=== PATIENT | female | born 1965 | race Caucasian/White ===

== ENCOUNTER 2024-01-18 11:02 | Inpatient (IN) | payer OTHER ==
[2024-01-18] VITALS (14 sets, daily range): BP systolic 113–158; BP diastolic 79–112; PULSE 99–133; RESP 11–22; TEMP 97.8–98; O2SAT 93–96
[~2024-01-18] VITALS: Ht 162.6 cm; Wt 95.4 kg
[2024-01-18] MEDS ORDERED: HEPARIN SODIUM (PORCINE) 5000 UNITS/ML 1ML VIAL IV ONE (11:15)
[2024-01-18] MEDS: InsuLIN REG 1unit/0.01ml Soln (100units/ml) IV ONE (11:15)
[2024-01-18] MEDS: SODIUM CHLORIDE 0.9% 1,000 ML IV ONE (11:15)
[2024-01-18] MEDS: ASPirin 325 MG TAB PO ONE (11:15)
[2024-01-18] MEDS: HEPARIN SODIUM (PORCINE) 5000 UNITS/ML 1ML VIAL IV ONE (11:16)
--- NOTE | 2024-01-18 11:18 | ED.PDOC ---
HPI Comments 58y F who presents to the ED via EMS for chief complaint of STEMI. Per EMS, pt has history of DM and has been having weakness and dizziness for the past 1 week and states she was getting worse and called EMS. EMS upon arrival, checked vitals, Accu check and did EKG. Pt has Accu check of 530 and states she has not taken her DM, metformin for the past few months. Pt has EKG done by EMS which showed STEMI and pt was brought to the ED. EMS states pt was given 1 nitro and 324 ASA and brought to the ED. Pt in the ED, is diaphoretic, but denies palpitations, shortness of breath, nausea, vomiting, headache or dizziness. Pt has noted history of CHF, HTN, HLD and HTN. Pt denies any other symptoms at this time. Chief Complaint: Chest Pain Time Seen by MD: 11:14 Primary Care Provider: NONE Reviewed Notes: Supervisor Malted Milk Notes Allergies: Coded Allergies: Codeine (Verified Allergy, Intermediate, 07/21/12) Information Source: Patient, Emergency Med Personnel Mode of Arrival: EMS Brought in by: EMS Past Medical History PAST MEDICAL HISTORY: Denies Surgical History: Denies all surgeries UNDER TRIMMER History: No Pertinent UNDER TRIMMER History Family History Family History: Reviewed,noncontributory to illness Social History Smoker: Quit Less Than 1 Year Alcohol: Denies ETOH Use Drugs: Denies Drug Use Lives In: Home Constitutional: denies: chills, diaphoresis, fatigue, fever, malaise, sweats, weakness, others EENTM: denies: blurred vision, double vision, ear bleeding, ear discharge, ear drainage, ear pain, ear ringing, eye pain, eye redness, hearing loss, mouth pain, mouth swelling, nasal discharge, nose bleeding, nose congestion, nose pain, photophobia, tearing, throat pain, throat swelling, voice changes, others Respiratory: reports: shortness of breath; denies: cough, hemoptysis, orthopnea, SOB at rest, SOB with excertion, stridor, wheezing, others Cardiovascular: reports: diaphoresis; denies: chest pain, dizzy spells, Dyspnea on exertion, edema, irregular heart beat, left arm pain, lightheadedness, palpitations, PND, syncope, others Gastrointestinal: denies: abdomen distended, abdominal pain, blood streaked bowels, constipated, diarrhea, dysphagia, difficulty swallowing, hematemesis, melena, nausea, poor appetite, poor fluid intake, rectal bleeding, rectal pain, vomiting, others Genitourinary: denies: abnormal vagina bleeding, burning, dyspareunia, dysuria, flank pain, frequency, hematuria, incontinence, pain, , vagina discharge, urgency, others Neurological: denies: dizziness, fainting, headache, left sided numbness, left sided weakness, numbness, paresthesia, pre-existing deficit, right sided numbness, right sided weakness, seizure, speech problems, tingling, tremors, weakness, others Musculoskeletal: denies: back pain, gout, joint pain, joint swelling, muscle pain, muscle stiffness, neck pain, others Integumetry: denies: bruises, change in color, change in hair/nails, dryness, laceration, lesions, lumps, rash, wounds, others Allergic/Immunocompromised: denies: Difficulty Healing, Frequent Infections, Hives, Itching, others Hematologic/Lymphatic: denies: anemia, blood clots, easy bleeding, easy bruising, swollen glands, others Endocrine: denies: excessive hunger, excessive sweating, excessive thirst, excessive urination, flushing, intolerance to cold, intolerance to heat, unexplained weight gain, unexplained weight loss, others Psychiatric: denies: anxiety, bipolar disorder, depression, hopeless, panic disorder, schizophrenia, sleepless, suicidal, others All Other Systems: Reviewed and Negative Physical Exam General Appearance: Moderate Distress HEENT: Normal ENT Inspection, Pharynx Normal, TMs Normal Neck: Full Range of Motion, Non-Tender, Normal, Normal Inspection Respiratory: Chest Non-Tender, Lungs Clear, No Accessory Muscle Use, No Respiratory Distress, Normal Breath Sounds Cardiovascular: No Edema, No JVD, No Murmur, No Gallop, Normal Peripheral Pulses, Regular Rate/Rhythm Breast Exam: Deferred Gastrointestinal: No Organomegaly, Non Tender, No Pulsatile Mass, Normal Bowel Sounds, Soft Genitalia: Deferred Pelvic: Deferred Rectal: Deferred Extremities: No calf tenderness, Normal capillary refill, Normal inspection, Normal range of motion, Non-tender, No pedal edema Musculoskeletal : Apperance: Normal Neurologic: Alert, price checker II-XII nml as Tested, No Motor Deficits, Normal Affect, Normal Mood, No Sensory Deficits Cerebellar Function: NOT DONE Reflexes: NOT DONE Skin: Dry, Normal Color, Warm Peripheral Pulses: 3+ Radial (R), 3+ Radial (L) Lymphatic: No Adenopathy Was a procedure done? Was a procedure done?: No CP Differential Dx Differential Diagnosis: A-fib, A-Flutter, Angina, Anxiety / Panic Attack, Atrial Dysrhythmia, AV Block 1st Degree, Electrolyte Disorder, Heart Failure, ID, Pulmonary Embolus Other Differential Diagnosis DKA, Differential Diagnosis: CHF, HTN Essential, HTN Accelerated, Medical NonCompliance X-Ray, Labs, Meds, VS Vital Signs Date Time Temp Pulse Resp B/P (MAP) Pulse Ox O2 Delivery O2 Flow Rate FiO2 01/18/24 13:20 119 16 155/107 (123) 93 01/18/24 13:05 122 16 156/106 (123) 93 01/18/24 12:50 122 16 140/104 (116) 94 01/18/24 12:35 122 11 158/104 (122) 93 01/18/24 12:20 124 12 145/112 (123) 93 01/18/24 11:10 133 93 Nasal Cannula* 2 28 01/18/24 11:10 99.2 133 24 144/106 (119) 93 99.2 01/18/24 11:04 133 01/18/24 11:02 99.2 130 20 153/93 (113) 94 99.2 01/18/24 11:02 99.2 130 20 153/93 (113) 94 Lab Test 01/18/24 11:15 Range/Units White Blood Count 10.8 4.4-10.8 10^3/uL Red Blood Count 5.53 H 4.0-5.20 10^6/uL Hemoglobin 16.5 H 12.2-16.2 g/dL Hematocrit 50.0 H 36.0-46.0 % Mean Corpuscular Volume 90.4 80.0-100.0 fL Mean Corpuscular Hemoglobin 29.8 28.0-32.0 pg Mean Corpuscular Hemoglobin Concent 33.0 32.0-36.0 g/dL Red Cell Distribution Width 15.0 H 11.8-14.3 % Platelet Count 347 140-450 10^3/uL Mean Platelet Volume 8.4 6.9-10.8 fL Neutrophils (%) (Auto) 66.1 37.0-80.0 % Lymphocytes (%) (Auto) 28.2 10.0-50.0 % Monocytes (%) (Auto) 4.6 0.0-12.0 % Eosinophils (%) (Auto) 0.2 0.0-7.0 % Basophils (%) (Auto) 0.9 0.0-2.0 % Neutrophils # (Auto) 7.2 1.6-8.6 10 ^3/uL Lymphocytes # (Auto) 3.1 0.4-5.4 10 ^3/uL Monocytes # (Auto) 0.5 0-1.3 10 ^3/uL Eosinophils # (Auto) 0 0-0.8 10 ^3/uL Basophils # (Auto) 0.1 0-0.2 10 ^3/uL Nucleated Red Blood Cells 0.0 % Hemoglobin A1c > 14.0 H <5.7 % A1C Troponin I High Sensitivity 46515 *H </=34 ng/L B-Type Natriuretic Peptide 345.96 0-100 pg/mL Current Medications Medications (Trade) Dose Ordered Sig/Sonia Route Start Time Stop Time Status Last Admin Heparin Sodium (Porcine) 4,000 units ONCE ONCE IV 01/18/24 11:45 01/18/24 12:16 DC 01/18/24 11:16 Ondansetron HCl (Zofran) 4 mg Q4HPRN PRN IV 01/18/24 12:30 01/18/24 12:35 Patient alert. Came in for weakness. Blood sugar elevated in the field. BNP elevated. Cardiac marker elevated. EKG reviewed does show STEMI. Was given heparin. Was given Zofran. Cardiology consultation. Sent to operations label clerk. Time of 1ST Reevaluation: 11:45 Reevaluation 1ST: Unchanged Patient Education/Counseling: Diagnosis, Treatment Family Education/Counseling: No Family Present Departure 1 Departure Time of Disposition: 17:57 Impression: Primary Impression: STEMI (ST elevation myocardial infarction) Qualified Codes: I21.3 - ST elevation (STEMI) myocardial infarction of unspecified site Additional Impressions: Uncontrolled diabetes mellitus Qualified Codes: E13.65 - Other specified diabetes mellitus with hyperglycemia CHF (congestive heart failure) Qualified Codes: I50.43 - Acute on chronic combined systolic (congestive) and diastolic (congestive) heart failure Disposition: 09 ADMITTED INPATIENT Admit to: Med Surg Condition: Guarded Critical Care Note Critical Care Time?: Yes (45 min-critical care time only) Stability Stability form required: No Heart Score Heart Score: Heart Score Response (Comments) Value History Highly Suspicious [address]-Deviation 2 Age 45-64 1 Risk Factors >3 or Hx ASHD 2 Troponin N/A 0 Total 7 I personally scribed for SABINA ANSARI MD ([email or web address]) on 01/18/24 at 11:18. Electronically submitted by Jenn Lowery ([email or web address]). I personally scribed for SABINA ANSARI MD ([email or web address]) on 01/18/24 at 11:21. Electronically submitted by Jenn Lowery ([email or web address]). SABINA ANSARI MD Jan 18, 2024 11:18
--- NOTE | 2024-01-18 11:23 | DVHINCON2 ---
Date Seen: Jan 18, 2024 Referring Physician MD Catalina Reason for Consultation STEMI History of Present Illness This is a 58-year-old female who presented to the emergency room via EMS with a chief complaint of dizziness since yesterday. Per patient, she developed dizziness associated with tremors progressively getting worse since yesterday which prompted her to call 911. Upon EMS arrival she underwent a 12-lead e lectrocardiogram revealing an acute inferior wall ST-elevation myocardial infarction with the patient presenting to the emergency room as a secure code STEMI. She was administered ASA 324 mg p.o. x1 and NTG 0.4 mg SL x1. Upon arrival to the emergency room, she underwent a subsequent 12-lead electrocardiogram with the secure code STEMI being confirmed. Reports very slight left-sided, non-radiating, non-provoked chest pain which is bearable. The patient's main complain is dizziness reporting hyperglycemia with blood sugar levels over 500s for the past week. States she ran out of her home medications weeks ago and has not taken her metformin. She also reports a recent diagnosis of unspecified congestive heart failure at [facility] approximately two months ago. Denies undergoing any invasive cardiac work-up, stress tests, or following up with a mac operator as an outpatient. Significant medical history includes unspecified congestive heart failure, hypertension, dyslipidemia, [id number] diabetes mellitus, cannabinoid use, a smoking history x 25 pack years, and obesity. Past Medical History Past medical history reviewed. No other significant than mentioned above. Past Surgical History C-sections x5 Unilateral oophorectomy Cholecystectomy Family History Family history reviewed. Social History See HPI. Allergies: Coded Allergies: Codeine (Verified Allergy, Intermediate, 07/21/12) Home Meds Home medications reviewed. Review of Systems Constitutional: No symptom reported Ears, Nose, & Throat: No symptom reported Eyes: No symptom reported Neurological: Dizziness, tremors Pulmonary/Respiratory: No symptom reported Cardiovascular: No symptom reported Gastrointestinal: No symptom reported Genitourinary: No symptom reported Musculoskeletal: No symptom reported Skin: No symptom reported Psychiatric: No symptom reported Endocrine: No symptom reported Hemotologic/Lymphatic: No symptom reported Vital Signs Vital Signs Date Time Temp Pulse Resp B/P (MAP) Pulse Ox O2 Delivery O2 Flow Rate FiO2 01/18/24 11:02 99.2 130 20 153/93 (113) 94 99.2 Physical Exam General Appearance: Cooperative. Well developed. Obese. In no acute distress Head Exam: Normal inspection Neck Exam: Normal inspection. Non-tender. Normal alignment Pulmonary/Respiratory: Chest non-tender. Diminished bilateral breath sounds. O2 via NC Cardiovascular/Chest: Regular rate and rhythm. S1, S2. Acute inferior wall ST- elevation myocardial infarction. No murmurs. No JVD. Peripheral Pulses: 2+ Radial (R). 2+ Radial (L). 2+ Pedal (R). 2+ Pedal (L) Abdominal Exam: Normal bowel sounds. Soft. Nontender. No hepatospenomegaly. No masses Ankle Exam: Negative ankle edema Lower extremities: Negative lower extremity edema Neuro/Mental Status: A&O x4. Coherent Thoughts/Psych: Normal thought pattern. Appropriate mood and affect. Good judgement and insight Appearance: In no acute distress Skin Exam: Normal inspection. Normal color. Warm. Dry Assessment Acute inferior wall ST-elevation myocardial infarction Rule out structural heart disease Rule out structural heart disease Xxk-qbvrmxu-ssutlukwe diabetes mellitus with hyperglycemia Hypertension Dyslipidemia Nicotine dependence Cannabinoid use Obesity Plan/Recommendation (Dr. Gonzales) Acute inferior wall ST-elevation myocardial infarction. The patient will undergo an emergent cardiac catheterization and coronary angiogram at first available. All risks and benefits of the procedure were discussed with the patient who agrees to proceed with intervention. All questions answered. In the meantime obtain a transthoracic echocardiogram to further assess extent of recently diagnosed heart failure. Lab work pending at this time. Continue tight glycemic control. Initiate nicotine patch, lipid lowering agent, and antiplatelet therapy per cardiac catheterization findings. Thank you for allowing us to participate in this patient's care. Please call if you have any questions or concerns. Critical care time: 45 min. This medical document was created using an electronic medical record system with voice recognition software and computerized dictation system. Although this document has been carefully reviewed, there might still be some phonetic and typographical errors. Oc casional wrong-word or ``sound-alike substitutions may have occurred due to the inherent limitations of voice recognition software. These areas are purely typographical due to imperfections of the software programs and do not reflect any compromise in the patient's medical care. Please read the chart carefully and recognize, using context, where these substitutions have occurred. Plan discussed with: Patient, Other Date of Service: Jan 18, 2024 Billing Provider: SUJATHA GONZALES MD Cardiology Common Codes: 70357-[id number] CARE 30-[address] [facility] Jan 18, 2024 11:23
[2024-01-18] MEDS: HEPARIN SODIUM (PORCINE) 5000 UNITS/ML 1ML VIAL ONE ×2 (11:36→12:19)
--- NOTE | 2024-01-18 11:47 | DVH ---
CLINICAL INFORMATION: 58 years old, Female; CHEST PAIN. TECHNIQUE: Single AP portable chest radiograph was obtained. COMPARISON: None FINDINGS: Lungs: Opacities in the lung bases, right greater than left, most likely atelectasis. Developing cons olidation in the right lung base not excluded. Cardiac: Heart size is within normal limits. Pulmonary vasculature: Unremarkable. Mediastinum/berkley: Unremarkable. Bones: No acute osseous abnormality identified. Other: No other significant findings. IMPRESSION: Bibasilar atelectasis with possible developing consolidation in the right lung base.
[2024-01-18] MEDS ORDERED: hydrALAZINE HCL 20 MG/ML VL IV PRN (12:00)
[2024-01-18] MEDS: NICOTINE 14 MG/24HR TOPICAL PATCH TD ONE (12:00)
[2024-01-18 12:01] LABS: Basophils # (auto) 0.1 10 ^3/uL (0-0.2); Basophils % (auto) 0.9 % (0.0-2.0); Eosinophils # (auto) 0 10 ^3/uL (0-0.8); Eosinophils % (auto) 0.2 % (0.0-7.0); Hemoglobin 16.5 g/dL (12.2-16.2); Lymphocytes # (auto) 3.1 10 ^3/uL (0.4-5.4); Lymphocytes % (auto) 28.2 % (10.0-50.0); Mean Corpuscular Hemoglobin 29.8 pg (28.0-32.0); Mean Corpuscular Volume 90.4 fL (80.0-100.0); Monocytes # (auto) 0.5 10 ^3/uL (0-1.3); Monocytes % (auto) 4.6 % (0.0-12.0); Neutrophils # (auto) 7.2 10 ^3/uL (1.6-8.6); Neutrophils % (auto) 66.1 % (37.0-80.0); Platelet Count (auto) 347 10^3/uL (140-450); Red Blood Cells 5.53 10^6/uL (4.0-5.20); White Blood Cell 10.8 10^3/uL (4.4-10.8)
[2024-01-18] MEDS: ANGIOMAX 250 MG VIAL IV ONE (12:13)
[2024-01-18] MEDS: IODIXANOL 320MG/ML 100ML BTL IV ONE (12:14)
[2024-01-18] MEDS: MIDAZOLAM HCL 2MG/2ML 2ml VIAL (1mg/ml) ONE (12:14)
[2024-01-18] MEDS: fentaNYL CITRATE 100 MCG/2 ML VL ONE (12:14)
[2024-01-18] MEDS: SODIUM CHL 0.9% 50 ML ONE (12:14)
[2024-01-18] MEDS: VERAPAMIL 2.5MG/ML INJ 2ML VIAL IV ONE (12:14)
[2024-01-18] MEDS: LIDOCAINE 2%HCL (LOCAL ANESTH.) INJ 20ML MDV ONE (12:15)
[2024-01-18] MEDS: ONDANSETRON HCL 4 MG/2 ML VIAL ONE (12:32)
[2024-01-18] MEDS: ONDANSETRON HCL 4 MG/2 ML VIAL IV PRN (12:35)
[2024-01-18] MEDS: ATROPINE SULF 1 MG/10ml SYR ONE (12:50)
--- NOTE | 2024-01-18 12:51 | DVHOP2 ---
Operative Report -Cardiology Report Details Date: 01/18/24 Preop Diagnosis: Inferior ST-elevation myocardial infarction. Postop Diagnosis: Successful primary PCI to completely occluded mid right coronary artery with a large. Then of thrombus. Patient underwent manual thrombectomy followed by successful implantation of single drug-eluting stent. She has also a critical lesion to the proximal mid LAD which was stented using a single drug-eluting stent. Patient tolerated the procedure very well. She was loaded with the Plavix 300 and received 162 mg of aspirin EN route to the hospital were 4000 heparin Surgeon: Namrata Mcarthur MD Anesthesiologist: Conscious sedation using25 mcg of fentanyl as well as a mg IV midazolam. It was given under the direct supervision of myself the primary remarketing rep with the presence of the attending nurses. No complication was obvious. Throughout the time she was monitored for total of 35 minutes Anesthesia: Local Consent: The patient was informed of the risks and benefits of the procedure. These include but are not limited to complications of anesthesia, postoperative infection, incomplete relief of symptoms, recurrence of symptoms, damage to blood vessels, nerves and tendons, deep venous thrombosis, pulmonary embolism and possible need for repeat surgery in the future. Indications for Surgery: This is a 58-year-old female who presented to the emergency room via EMS with a chief complaint of dizziness since yesterday. Per patient, she developed dizziness associated with tremors progressively getting worse since yesterday which prompted her to call 911. Upon EMS arrival she underwent a 12-lead electrocardiogram revealing an acute inferior wall ST-elevation myocardial infarction with the patient presenting to the emergency room as a secure code STEMI. She was administered ASA 324 mg p.o. x1 and NTG 0.4 mg SL x1. Upon arrival to the emergency room, she underwent a subsequent 12-lead electrocardio gram with the secure code STEMI being confirmed. Reports very slight left- sided, non-radiating, non-provoked chest pain which is bearable. The patient's main complain is dizziness reporting hyperglycemia with blood sugar levels over 500s for the past week. States she ran out of her home medications weeks ago and has not taken her metformin. She also reports a recent diagnosis of unspecified congestive heart failure at [facility] approximately two months ago. Denies undergoing any invasive cardiac work-up, stress tests, or following up with a remarketing rep as an outpatient. Significant medical history includes unspecified congestive heart failure, hypertension, dyslipidemia, dbv-nucwljj-[id number] diabetes mellitus, cannabinoid use, a smoking history x 25 pack years, and obesity. Name of Procedure Performed 1. Left heart catheterization with left ventricular end-diastolic pressure measurement. 2. Selective right and left coronary angiography utilizing right transradial approach. 3. Conscious sedation using25 mcg of fentanyl as well as a mg IV midazolam. 4. Successful primary PCI of the right coronary artery using single drug-eluting stent. 5. Manual thrombectomy using penWaterfall CAT five Dutch catheter. With the minimal clot retrieved. 6. Staged PCI of the same set up of prox to mid LAD tight stenosis and 90% using single drug-eluting stent. Procedure Details Procedure Details: Procedure note: After informed consent was obtained, risks, benefits, complications, and alternatives were discussed in details with the patient who agrees to have the procedure done. At the beginning of the procedure, the right wrist in the right groin area were prepped and draped in the regular sterile fashion. A total of 2 cc of 1% xylocaine was given to the right wrist area before a six Dutch sheath was placed using modified Seldinger technique. Patient received a total of 2.5 mg of verapamil as well as 100 mcg of nitroglycerin intra-arterial to prevent vasospasm. She received conscious sedation was25 mcg of fentanyl as well as a mg IV midazolam. [place] five Dutch catheter was used to engage the right and left coronary system, it was also used to measure left ventricular end-diastolic pressure. And then it was exchanged for a Frankie right to the right coronary artery as well as an XB 3-0 guiding catheter of the left system. Findings were as follows: 1. Left heart catheterization with left ventricular end-diastolic pressure measurement: With the help of a tiger five Dutch catheter as well as a J-tip wire we were able to cross the aortic valve and measured left ventricular end-diastolic pressure which was normal at 6 mm of mercury. There was no gradient across the aortic valve on the pullback. 2. Selective right and left coronary angiography utilizing right transradial approach: 1. The right coronary artery comes off the right coronary cusp it is a large dominant system it is occluded at the mid segment with a large clot burden. Evident by multiple filling defects. This is the culprit vessels of the patient's presentation. 2. The left main comes off the left coronary cusp it bifurcates into a large left anterior descending artery as well as a medium-sized left circumflex vessel. The left main is free of any significant atherosclerotic plaquing. 3. The left anterior descending artery it is a large, has transapical course, it bifurcates into three diagonal branch before the 2nd diagonal branch there is a tight focal 90% stenosis expanding through the ostium of the 2nd diagonal branch. There is mild distal disease at 80%. The LAD tapers to a small caliber vessels at its end. 4. Left circumflex artery, is a medium-sized vessel it gives rise to multiple obtuse marginal branches it has [id number] irregularity at 50-60% does not require intervention at this stage. 3. Manual thrombectomy, followed by successful angioplasty to a large very dominant mid right coronary artery occlusion using single drug-eluting stent: The tiger five Dutch catheter was exchanged for a Frankie right four guiding catheter. The lesion was traversed using C-arm blue wire, after the lesion was crossed it was interrogated using a CT five Dutch manual thrombectomy device with a multiple sweeps, with the ability to retrieve small white clot and samaritan of the flow to NITIN two from NITIN 0, this followed by predilatation using two5 x 15 balloon and then stenting using four 0 by 30 drug-eluting stent this was post dilated using 4.[address] up to 20 atmospheric pressure with excellent final result. There is a distal embolization of the posterior descending artery which was left for medical therapy and continuous Angiomax infusion. 4. Staged PCI to proximal to mid LAD tight stenosis at the same set up: The Frankie right guiding catheter was exchanged for an XB 3-0 guiding catheter, the same C-arm blue wire was used to engage the left system traversing the lesion of the LAD, the lesion was then pre-dilated using two5 x 15 sprinter Legend balloon and then was stented using a 3.5 by15 drug-eluting stent with excellent final result the lesion was then post dilated using three five NC balloon all the way to 18 atmospheric pressure at two different spots. Excellent final result obtained. 5. Antiplatelet anticoagulation during the procedure: Patient received loading dose of 300 of Plavix p.o. of and it was well as 162 mg of aspirin, IV bivalirudin was given throughout the procedure to achieve adequate anticoagulation without complication. Impression and plan: 1. Acute inferior ST-elevation myocardial infarction secondary to complete occlusion of mid right coronary artery dominant vessel, that was treated with a manual thrombectomy and successful implantation of single drug-eluting stent. 2. Staged PCI to a tight prox LAD stenosis before the 2nd diagonal branch using single drug-eluting stent with excellent final result. 3. Aggressive secondary prevention protocol is warranted with a high-dose statin to achieve LDL target less than 50 mg/dL addition to controlling other risk factors including diabetes mellitus and hypertension. 4. Patient would need echocardiography to assess left ventricular ejection fraction and proceed with goal-directed therapy as needed. Condition Good [facility] Clinical Frailty Scale [facility] Clinical Frailty Scale: Managing Well Stress Test Stress Test Performed: No Dominance Dominance: Right NITIN NITIN Flow: Post- Intervention (NITIN-3), Pre-Intervention (NITIN-2) Lesion Lesion Complexity: High/C Residual Stenosis post procedu: 0% Disposition NAMRATA MCARTHUR MD Jan 18, 2024 12:51
[2024-01-18] MEDS: EPTIFIBATIDE INJ (2MG/ML) 10ML VIAL IV ONE (13:21)
[2024-01-18] MEDS: CLOPIDOGREL BISULFATE 75 MG TAB ONE (13:21)
[2024-01-18] MEDS: HYDROcodone-ACET 5/325MG TAB PO PRN (14:04)
--- NOTE | 2024-01-18 14:10 | DVHHP2 ---
History of Present Illness Reason for Visit: STEMI History of Present Illness 58-year-old female presented to the ED via EMS with chief complaint of dizziness since yesterday. Per patient she developed dizziness associated with tremors that was progressively getting worse since yesterday which prompted her to call 911. Upon EMS arrival she underwent 12 lead EKG revealing acute inferior wall ST-elevation myocardial infarction with a patient presenting to the ED as a secure code STEMI. Patient was given aspirin 324 mg p.o. x1 in NTG 0.4 mg sublingual x1. Subsequent 12 lead EKG done in the ER once patient arrived confirm STEMI. Patient at the time was having left-sided nonradiating non provoked chest pain which was bearable. And patient's main complaint was dizziness, patient also explains hyperglycemia with blood sugar levels over 500s for the past week. Per patient she ran out of her home medications weeks ago and has not taken her metformin. Patient reports diagnosis of CHF at [facility] ago. Patient did not undergo any invasive cardiac workup, stress test for follow up with Cardiology as outpatient. Patient denies headache, diaphoresis, shortness of breath, abdominal pain, no nausea, vomiting, fever, or chills endorsed by the patient. Patient was admitted for further evaluation medical management. Past Medical History CHF, hypertension, dyslipidemia, noninsulin dependent diabetes mellitus, cannabinoid use, smoker history 25 pack years, obesity Past Surgical History x5 unilateral oophorectomy, cholecystectomy Family History Reviewed noncontributory to the management of this case Smoke: # pack years (25) ALCOHOL: none Drugs: None Lives: with Family Review of Systems Constitutional: No: Fever, Chills, Sweats, Weakness, Malaise, Other Eyes: No: Pain, Vision change, Conjunctivae inflammation, Eyelid inflammation, Other, Redness ENT: No: Ear pain, Ear discharge, Nose pain, Nose discharge, Nose congestion, Mouth pain, Mouth swelling, Throat pain, Throat swelling, Other Respiratory: No: Cough, Dry, Shortness of breath, SOB with excertion, Wheezing, Hemoptysis, Pleuritic Pain, Sputum, Wheezing, Other Cardiovascular: Chest Pain, Lt Headedness; No: Palpitations, Orthopnea, Paroxysmal Noc. Dyspnea, Edema, Other Gastrointestinal: No: Nausea, Vomiting, Abdominal Pain, Diarrhea, Constipation, Melena, Hematochezia, Other Genitourinary: No Dysuria, No Frequency, No Incontinence, No Hematuria, No Retention, No Other Musculoskeletal: No: other, neck pain, shoulder pain, arm pain, back pain, hand pain, leg pain, foot pain Skin: No: Rash, Lesions, Jaundice, Bruising, Other Neurological: No: Weakness, Numbness, Incoordination, Change in speech, Confusion, Seizures, Other Allergies: Coded Allergies: Codeine (Verified Allergy, Intermediate, 07/21/12) Medications Current Medications Medications Dose Ordered Sig/Sonia Route Start Time Stop Time Status Last Admin Dose Admin Nicotine 1 patch DAILY TD 01/19/24 10:00 Atorvastatin Calcium 40 mg HS PO 01/18/24 22:00 Aspirin 81 mg DAILY PO 01/19/24 10:00 Metoprolol Succinate 25 mg DAILY PO 01/19/24 10:00 Hydralazine HCl 10 mg Q6HP PRN IV 01/18/24 12:00 Ondansetron HCl 4 mg Q4HPRN PRN IV 01/18/24 12:30 Clopidogrel Bisulfate 75 mg DAILY PO 01/19/24 10:00 Nitroglycerin 0.4 mg Q5MINP PRN SL 01/18/24 13:30 Morphine Sulfate 2 mg Q30M PRN IV 01/18/24 13:30 Acetaminophen/ Hydrocodone Bitart 1 tab Q4HPRN PRN PO 01/18/24 13:45 Morphine Sulfate 2 mg Q4HPRN PRN IV 01/18/24 13:45 Temazepam 15 mg HSPRN PRN PO 01/18/24 13:45 Exam Vital Signs Vital Signs Date Time Temp Pulse Resp B/P (MAP) Pulse Ox O2 Delivery O2 Flow Rate FiO2 01/18/24 11:10 133 93 Nasal Cannula* 2 28 01/18/24 11:10 99.2 24 144/106 (119) 99.2 General Appearance: Alert, Oriented X3, Cooperative, mild distress HEENT: Atraumatic, PERRLA, EOMI, Mucous membr. moist/pink Respiratory: Clear to auscultation, Normal air movement Cardiovascular: Regular rate, Normal S1, Normal S2, No murmurs Abdominal: Normal bowel sounds, Soft, No tenderness, No hepatospenomegaly Extremities: No clubbing, No cyanosis, No edema, Normal pulses, No tenderness/swelling Skin: No rashes, No breakdown, No significant lesion Neuro: Normal gait, Normal speech, Strength at 5/5 X4 ext, Normal tone, Sensation intact, Cranial nerves 3-12 NL, Reflexes 2+ Psych/Mental Status: Mental status NL, Mood NL Labs/Xrays Labs, imaging and diagnostic tests reviewed Labs Test 01/18/24 11:15 Range/Units White Blood Count 10.8 4.4-10.8 10^3/uL Red Blood Count 5.53 H 4.0-5.20 10^6/uL Hemoglobin 16.5 H 12.2-16.2 g/dL Hematocrit 50.0 H 36.0-46.0 % Mean Corpuscular Volume 90.4 80.0-100.0 fL Mean Corpuscular Hemoglobin 29.8 28.0-32.0 pg Mean Corpuscular Hemoglobin Concent 33.0 32.0-36.0 g/dL Red Cell Distribution Width 15.0 H 11.8-14.3 % Platelet Count 347 140-450 10^3/uL Mean Platelet Volume 8.4 6.9-10.8 fL Neutrophils (%) (Auto) 66.1 37.0-80.0 % Lymphocytes (%) (Auto) 28.2 10.0-50.0 % Monocytes (%) (Auto) 4.6 0.0-12.0 % Eosinophils (%) (Auto) 0.2 0.0-7.0 % Basophils (%) (Auto) 0.9 0.0-2.0 % Neutrophils # (Auto) 7.2 1.6-8.6 10 ^3/uL Lymphocytes # (Auto) 3.1 0.4-5.4 10 ^3/uL Monocytes # (Auto) 0.5 0-1.3 10 ^3/uL Eosinophils # (Auto) 0 0-0.8 10 ^3/uL Basophils # (Auto) 0.1 0-0.2 10 ^3/uL Nucleated Red Blood Cells 0.0 % Hemoglobin A1c > 14.0 H <5.7 % A1C Troponin I High Sensitivity 54973 *H </=34 ng/L B-Type Natriuretic Peptide 345.96 0-100 pg/mL Assessment/Plan Assessment/Plan STEMI Admit to telemetry Cardiology consulted, follow up orders ACS protocol Status post thrombectomy and stenting Started on Plavix Chronic hyperlipidemia Patient is started on statin per Cardiology orders Lipid panel pending Chronic hypertension Monitor blood pressure Started on medications by Cardiology Hydralazine p.r.n. CHF Recent diagnosis Patient unsure of home medications Gmq-bvblqjp-zcgfejqfo diabetes mellitus Accu-Cheks a.c. HS Moderate insulin sliding scale Substance abuse, marijuana Discussed abstinence Insomnia Started on temazepam Nicotine dependence Started on nicotine patch FEN/PPX GI and VTE prophylaxis not indicated Consistent carb diet and If home medications are obtained and needed to be added nursing to contact hospitalist and enter in computer. Plan discussed with: Patient My Orders Orders - TAISHA ROBERT Procedure Category Date Status Time Admit ADMIT 01/18/24 Transmitted 13:26 Code Status CODE 01/18/24 Transmitted 13:26 Vital Signs [facility] 01/18/24 In Process 13:26 Review Orders With [facility] 01/18/24 In Process Adm. 13:26 Bedrest With Bathroom [place] 01/18/24 In Process Privileg 13:26 Consistent DIET 01/18/24 Transmitted Carb(Ccho)Diabetes Lunch Notify Md Of Changes [facility] 01/18/24 In Process From Base 13:26 Advance Directive [place] 01/18/24 In Process 13:26 Basic Metabolic Panel LAB 01/19/24 Verified 04:00 Complete Blood Count LAB 01/19/24 Verified 04:00 Patient Condition ORDERS 01/18/24 Transmitted 13:26 Allergies [place] 01/18/24 In Process 13:26 Nitroglycerin [facility] 01/18/24 In Process Sublingual (Ntrostat 13:30 Morphine Sulfate [facility] 01/18/24 In Process Injection 13:30 Stat Ekg For Chest [place] 01/18/24 In Process Pain 13:26 Notify Md Of Changes [facility] 01/18/24 In Process From Base 13:26 Hydrocodone-Acet [facility] 01/18/24 In Process 5/325mg Tab ([place] 13:45 Morphine Sulfate [facility] 01/18/24 In Process Injection 13:45 Temazepam (Restoril) [facility] 01/18/24 In Process 13:45 Date of Service: Jan 18, 2024 Billing Provider: TAISHA ROBERT Common Visit Codes: [id number] INP/OBS CARE (HIGH) TAISHA ROBERT Jan 18, 2024 14:10
[2024-01-18] MEDS ORDERED: DEXTROSE (50%) 50ML SYRG IV PRN ×2 (16:30→23:00)
[2024-01-18] MEDS: ACCU-CHEK COMFORT CURVE STRIP VI SCH (17:02)
[2024-01-18] MEDS: InsuLIN REG 1unit/0.01ml Soln (100units/ml) SC SCH ×2 (17:03→21:51)
[2024-01-18 17:43] LABS: Chloride 97 mmol/L (98-107); Potassium 5.3 mmol/L (3.5-5.1); Sodium 132 mmol/L (136-145)
[2024-01-18 17:46] LABS: Anion Gap 4 (5-15); Calcium 9.7 mg/dL (8.7-10.4); Carbon Dioxide 31 mmol/L (20-31)
[2024-01-18 17:51] LABS: BUN/Creatinine Ratio 21.3 (10.0-20.0); Blood Urea Nitrogen 26 mg/dL (9-23)
[2024-01-18 17:52] LABS: Magnesium 1.8 mg/dL (1.6-2.6)
[2024-01-18 18:00] LABS: Glucose 514 mg/dL (74-106)
[2024-01-18] MEDS: MORPHINE SULFATE INJ 2 MG/ml SYRG IV PRN (18:36)
[2024-01-18] MEDS ORDERED: InsuLIN REG 1unit/0.01ml Soln (100units/ml) IV ONE (19:00)
[2024-01-18] MEDS: InsuLIN REG 1unit/0.01ml Soln (100units/ml) SC ONE (19:38)
[2024-01-18] MEDS: INSULIN LANTUS (GLARGINE) 1 /0.01ml (100units/ml) SC ONE (20:49)
[2024-01-18] MEDS: ATORVASTATIN 20 MG TAB PO SCH (21:48)
[2024-01-19] VITALS (8 sets, daily range): BP systolic 112–144; BP diastolic 80–91; PULSE 107–129; RESP 19–20; TEMP 98.2–100.8; O2SAT 93–96
[2024-01-19] MEDS: ACCU-CHEK COMFORT CURVE STRIP VI SCH (00:21)
[2024-01-19] MEDS: InsuLIN REG 1unit/0.01ml Soln (100units/ml) SC SCH (00:22)
[2024-01-19 06:33] LABS: Anion Gap 6 (5-15); Calcium 9.4 mg/dL (8.7-10.4); Carbon Dioxide 26 mmol/L (20-31); Chloride 101 mmol/L (98-107); Potassium 3.8 mmol/L (3.5-5.1); Sodium 133 mmol/L (136-145)
[2024-01-19 06:39] LABS: BUN/Creatinine Ratio 26.7 (10.0-20.0); Blood Urea Nitrogen 20 mg/dL (9-23); Glucose 163 mg/dL (74-106)
[2024-01-19 07:04] LABS: Basophils # (auto) 0.1 10 ^3/uL (0-0.2); Basophils % (auto) 1.1 % (0.0-2.0); Eosinophils # (auto) 0 10 ^3/uL (0-0.8); Eosinophils % (auto) 0.4 % (0.0-7.0); Hematocrit 47.9 % (36.0-46.0); Lymphocytes % (auto) 25.8 % (10.0-50.0); Mean Corpuscular Hemoglobin 28.9 pg (28.0-32.0); Mean Corpuscular Hgb Conc. 33.3 g/dL (32.0-36.0); Mean Corpuscular Volume 86.8 fL (80.0-100.0); Monocytes # (auto) 0.7 10 ^3/uL (0-1.3); Neutrophils # (auto) 7.8 10 ^3/uL (1.6-8.6); Neutrophils % (auto) 66.7 % (37.0-80.0); Nucleated Red Blood Cells % 0.3 %; Platelet Count (auto) 341 10^3/uL (140-450); Red Blood Cells 5.52 10^6/uL (4.0-5.20); Red Cell Distribution Width 14.9 % (11.8-14.3); White Blood Cell 11.6 10^3/uL (4.4-10.8)
--- NOTE | 2024-01-19 09:38 | ECG ---
[facility] Test Date: 2024-01-18 Test Time: 11:04:24 Pat Name: MOON COON Department: ED Room: 0251T Gender: F Manager Strategy: DAYSI : 1965 Requested By: SABINA ANSARI Order Number: [id number] Reading MD: Measurements Intervals [place] Rate: 133 P: 0 ND: 134 QRS: 170 QRSD: 133 T: 38 QT: 400 QTc: 596 Interpretive Statements Sinus tachycardia Probable left atrial enlargement RBBB and LPFB Inferior infarct, acute (LCx) Probable posterior infarct, acute Lateral leads are also involved Please click the below link to view image of tracing.
--- NOTE | 2024-01-19 09:44 | DVHPNRES ---
Progress Note Date Seen: Jan 19, 2024 Resident Creating Document: ALEJANDRO ENGEL RESIDENT Medical Necessity Reason Pt with a Central, PICC or Fol: No Subjective Review of Systems Lupe Gaytan is a 58-year-old female patient who presents to ED via EMS with chief complaint of dizziness and generalized tremors which started one day before her admission, associated with stabbing chest pain which radiates towards her left shoulder in variable functional class intensity 4/10. Patient reports to presents to the ED a previous stay and left AMA before completing workup. EMS completed 12 lead EKG which revealed inferior ST elevation with Q-waves present, activating subacute code STEMI, administering load of aspirin, sublingual nitroglycerin and heparin load. Interpreted as evolved STEMI persistently symptomatic by dizziness, completed coronary angiography with stent placement to occluded mid RCA and proximal LAD due to severe stenosis. Denies dyspnea, palpitation, syncope, nausea, vomiting, diarrhea, bleeding, fever, chills, dysuria and motor sensory deficits. Past medical history: Hypertension, dyslipidemia, txn-ruerbqg-ieciujmde diabetes, obesity, unspecified congestive heart failure. Surgical history: C-sections x5, unilateral oophorectomy, cholecystectomy Family history: Noncontributory Social history: Current tobacco smoker (25 pack-year history of smoking), cannabinoid use. Denies current alcohol and other drug abuse. Allergies: Codeine Home medication: Does not recall Patient seen and examined at bedside. Currently complains of same dizziness and mild (intensity 2/4) intermittent stabbing pain increases with movement and respiration, is different from pain from when she was admitted. Objective vital signs Vital Sign Date Time Temp Pulse Resp B/P (MAP) Pulse Ox O2 Delivery O2 Flow Rate FiO2 01/19/24 05:00 98.2 115 20 112/84 (93) 93 98.2 01/18/24 20:00 Room Air* 0 21 Total Intake and Output 01/18/24 01/18/24 01/19/24 15:00 23:00 07:00 Intake Total 600 ml Balance 600 ml medications Current Medications Medications Dose Ordered Sig/Sonia Route Start Time Stop Time Status Last Admin Dose Admin Nicotine 1 patch DAILY TD 01/19/24 10:00 Atorvastatin Calcium 40 mg HS PO 01/18/24 22:00 01/18/24 21:48 40 MG Aspirin 81 mg DAILY PO 01/19/24 10:00 Metoprolol Succinate 25 mg DAILY PO 01/19/24 10:00 Hydralazine HCl 10 mg Q6HP PRN IV 01/18/24 12:00 Ondansetron HCl 4 mg Q4HPRN PRN IV 01/18/24 12:30 01/18/24 12:35 4 MG Clopidogrel Bisulfate 75 mg DAILY PO 01/19/24 10:00 Nitroglycerin 0.4 mg Q5MINP PRN SL 01/18/24 13:30 Morphine Sulfate 2 mg Q30M PRN IV 01/18/24 13:30 01/19/24 03:00 2 MG Acetaminophen/ Hydrocodone Bitart 1 tab Q4HPRN PRN PO 01/18/24 13:45 01/18/24 14:04 1 TAB Morphine Sulfate 2 mg Q4HPRN PRN IV 01/18/24 13:45 Temazepam 15 mg HSPRN PRN PO 01/18/24 13:45 Diagnostic Test (Pha) 1 strip IQ4HR 01/19/24 00:00 01/19/24 03:59 1 STRIP Insulin Human Regular IQ4HR SC 01/19/24 00:00 01/19/24 04:02 3 UNITS Dextrose 50 ml UD PRN IV 01/18/24 23:00 Examination Patient lying in bed, in no acute distress General: Lucid, afebrile, mucosae are moist Cardiovascular: Normal S1 and S2. No murmurs, gallops or rubs Respiratory: Normal ventilation mechanics. Clear lung sounds on auscultation Abdomen: Soft, nontender, no organomegaly, normal bowel sounds MSK/skin: Mobilizes 4 limbs. Skin is dry and warm puncture site on right radial area with no murmurs nor hematoma. Neurological: Oriented in 3 spheres. No motor no sensitive deficits. Pupils are isocoric and reactive laboratory and microbiology Laboratory Tests 01/19/24 05:54 Test 01/19/24 05:54 Range/Units Serum Glucose 163 H 74-106 mg/dL Problem List/Assessment/Plan Problem List/Assessment/Plan Assessment Evolved inferior wall ST-elevation myocardial infarction (>12 hours) Newly diagnosed ischemic cardiomyopathy Acute systolic congestive heart failure (HFrEF, LVEF 35-40%) Dbj-bauvpmk-jradyictl diabetes mellitus with hyperglycemia Hypertension Dyslipidemia Nicotine dependence Cannabinoid use Obesity Plan/Recommendation Completed coronary angiography: Left ventricular end-diastolic pressure 6 mmHg. Dominant RCA with occlusion of the mid segment, 90% stenosis in proximal LAD, 80% stenosis in distal LAD, obtuse marginal with 50-60% stenosis. Completed manual thrombectomy of RCA, placement of stent in mid RCA, placement of stent in proximal LAD. Echocardiogram: LVEF 35-40%, global hypokinesia, grade 1 diastolic dysfunction Currently on DAPT, statin and GDM T (beta-elsa, ARNi, MRA and SGLT-2 inhibitors) Aggressive secondary prevention protocol as warranted. Discussed the case with Dr. Mcarthur, patient and nurses: Currently status post stent placement to mid RCA and proximal LAD. Continue with DAPT, statin and GDMT. Patient continues with mild stabbing chest pain, it was suspected due to evolved STEMI (early pericarditis post ID). We will continue monitoring patient to see tolerance of GDM T and symptomatic improvement. Patient has poor prognosis Plan discussed with: Patient, Other (Nurses) Visit Coding Cardiology RES Date of Service: Jan 19, 2024 Billing Provider: SUJATHA MCARTHUR MD Cardiology Common Codes: 04035-MAV/OBS SAME DATE (High), 51391-KANZNNGY CARE- EACH +30MIN ALEJANDRO ENGEL RESIDENT Jan 19, 2024 09:44
[2024-01-19] MEDS: NICOTINE 14 MG/24HR TOPICAL PATCH TD SCH (09:46)
[2024-01-19] MEDS: CLOPIDOGREL BISULFATE 75 MG TAB PO SCH (09:47)
--- NOTE | 2024-01-19 09:47 | DVHPN2 ---
Subjective Still complaining of chest pain Reviewed: Care Plan, H&P, Labs, Medications, Previous Orders, Radiology, Other (Consultation) Changes from previous H/P or p: No Changes Objective Vitals Vital Signs Date Time Temp Pulse Resp B/P (MAP) Pulse Ox O2 Delivery O2 Flow Rate FiO2 01/19/24 05:00 98.2 115 20 112/84 (93) 93 98.2 01/18/24 20:00 Room Air* 0 21 Intake/Output Intake and Output 01/19/24 07:00 Intake Total 600 ml Balance 600 ml Intake Oral 600 ml # Voids 12 General Appearance: Alert, Oriented X3, Cooperative, moderate distress HEENT: Atraumatic Lungs: Clear to auscultation, Normal air movement Cardiovascular: Regular rate, Normal S1, Normal S2, No murmurs Abdomen: Normal bowel sounds, Soft, No tenderness Extremities: Other (Heart catheterization site with no bleeding/swelling/discharge) Medications Current Medications Medications Dose Ordered Sig/Sonia Route Start Time Stop Time Status Last Admin Dose Admin Nicotine 1 patch DAILY TD 01/19/24 10:00 Atorvastatin Calcium 40 mg HS PO 01/18/24 22:00 01/18/24 21:48 40 MG Aspirin 81 mg DAILY PO 01/19/24 10:00 Metoprolol Succinate 25 mg DAILY PO 01/19/24 10:00 Hydralazine HCl 10 mg Q6HP PRN IV 01/18/24 12:00 Ondansetron HCl 4 mg Q4HPRN PRN IV 01/18/24 12:30 01/18/24 12:35 4 MG Clopidogrel Bisulfate 75 mg DAILY PO 01/19/24 10:00 Nitroglycerin 0.4 mg Q5MINP PRN SL 01/18/24 13:30 Morphine Sulfate 2 mg Q30M PRN IV 01/18/24 13:30 01/19/24 03:00 2 MG Acetaminophen/ Hydrocodone Bitart 1 tab Q4HPRN PRN PO 01/18/24 13:45 01/18/24 14:04 1 TAB Morphine Sulfate 2 mg Q4HPRN PRN IV 01/18/24 13:45 Temazepam 15 mg HSPRN PRN PO 01/18/24 13:45 Diagnostic Test (Pha) 1 strip IQ4HR 01/19/24 00:00 01/19/24 03:59 1 STRIP Insulin Human Regular IQ4HR SC 01/19/24 00:00 01/19/24 04:02 3 UNITS Dextrose 50 ml UD PRN IV 01/18/24 23:00 Laboratory Results Laboratory Tests 01/19/24 05:54 Chemistry Test 01/18/24 17:22 01/19/24 05:54 Calcium Level 9.7 mg/dL (8.7-10.4) 9.4 mg/dL (8.7-10.4) Magnesium Level 1.8 mg/dL (1.6-2.6) Lipid panel Test 01/18/24 17:22 Cholesterol Level 140 mg/dL (< 200) HDL Cholesterol 49 mg/dL (40-59) Triglycerides Level 182 mg/dL (< 150) H Cardiac Markers Test 01/18/24 11:15 B-Type Natriuretic Peptide 345.96 pg/mL (0-100) HgA1c, TSH Test 01/18/24 11:15 01/18/24 14:54 Hemoglobin A1c > 14.0 % A1C (<5.7) H Thyroid Stimulating Hormone (TSH) 2.29 uIU/mL (0.55-4.78) Labs and/or images reviewed: Labs reviewed by me, Image(s) reviewed by me Assessment/Plan Assessment/Plan A 58-year-old female patient with multiple comorbidities; who presented to the emergency department with chest pain and dizziness. #Chest pain and dizziness due to STEMI; still with chest pain #STEMI status post heart catheterization on January 18, 2024 with placement of two CARROL; one in RCA and one in the proximal to mid LAD #Leukocytosis; most likely reactive due to above #KAREN; most likely vasomotor nephropathy; due to above #Ischemic cardiomyopathy with diastolic and systolic heart #Hypertensive heart disease with heart failure Continue aspirin, clopidogrel, and statin Telemetry Discussed the case with Cardiology regarding continuous chest pain Reviewed echocardiogram and heart catheterization reports Continue GDMT, and antihypertensive medications; and adjust as indicated Avoid nephrotoxic agents Strict input and output monitoring Continue close monitoring #Uncontrolled diabetes mellitus type 2; hemoglobin A1c more than 14% #Severe metabolic syndrome with mixed dyslipidemia and morbid obesity #Mixed dyslipidemia #Morbid obesity Started the patient on long-acting insulin Continue insulin sliding scale with hypoglycemia protocol Continue monitoring glucose and adjust insulin dose accordingly Continue statin; reviewed lipid profile Counseled the patient on the importance of adopting healthy lifestyle with diet and exercise in order to lose weight Continue monitoring #Marijuana and tobacco use disorder Continue nicotine patch Counseled on tobacco use cessation for 18 minutes Counseled on marijuana use cessation for 12 minutes Continue monitoring Goals of care discussed for 20 minutes; full code 99 minutes of critical care time Late Entry This medical document was created using an electronic medical record system with computerized dictation system. Although this document has been carefully reviewed, there might still be some phonetic and typographical errors. These areas are purely typographical due to imperfections of the software programs, and do not reflect any compromise in the patient's medical care. Plan discussed with: Patient, Other (Nurse) My Orders Orders - MICHAELLE ARANGO MD Procedure Category Date Status Time Complete Blood Count LAB 01/20/24 Verified 04:00 Magnesium LAB 01/20/24 Verified 04:00 Date of Service: Jan 19, 2024 Billing Provider: MICHAELLE ARANGO MD Common Visit Codes: 27139-[id number] CARE 30-74 MIN (99 minutes), 99965-[id number] CARE-EACH +30MIN Secondary Visit Codes: 42533-YHDVY CHNG SMOKING >10MIN (Counseled on tobacco use cessation for 18 minutes and on marijuana use cessation for 12 minutes), [id number]-[id number] CARE PLAN 30 MINUTES (20 minutes) MICHAELLE ARANGO MD Jan 19, 2024 09:47
[2024-01-19] MEDS: ASPirin 81 mg TAB PO SCH (09:48)
[2024-01-19] MEDS: METOPROLOL SUCCINATE XL 50 MG TAB PO SCH (09:51)
--- NOTE | 2024-01-19 10:05 | ECG ---
[facility] Test Date: 2024-01-18 Test Time: 12:54:50 Pat Name: MOON COON Department: Room: 0251T A Gender: F Tacker Off: ELIZABETH : 1965 Requested By: LAURA TORRES Order Number: [id number] Reading MD: Namrata Mcarthur Measurements Intervals [place] Rate: 122 P: 63 VA: 168 QRS: 141 QRSD: 140 T: 3 QT: 318 QTc: 453 Interpretive Statements Sinus tachycardia Possible Left atrial enlargement Right bundle branch block Left posterior fascicular block Bifascicular block Inferior infarct , age undetermined Electronically Signed On 01-19-2024 15:52:49 PST by Namrata Mcarthur Please click the below link to view image of tracing.
[2024-01-19] MEDS: MORPHINE SULFATE INJ 2 MG/ml SYRG IV PRN (10:40)
--- NOTE | 2024-01-19 12:51 | DVHSR ---
APPROVED REPORT EXAM: Two-dimensional and M-mode echocardiogram with Doppler and color Doppler. Blood Pressure: 112/84 mmHg INDICATION STEMI RISK FACTORS Height: 64, Weight: 213 DIMENSIONS LVDd (3.8-5.7cm)LA (2D)4.6 (1.9-4.0cm)Aortic Root3.7 (2.0-3.7cm) LVDs (2.5-4.0cm)LA (MM) (1.9-4.0cm)Aortic Cusp Exc1.8 (1.5-2.0cm) EF (%) 40.0 (55-70%)Rt. Atrium3.6 (1.9-4.0cm)Asc. Aorta cm Mitral Valve MitralMitral Stenosis E wave1.25m/sMV Mean GR.mmHg A wavem/sMV Peak GR.50mmHg E/A ratio0.02D MVAcm2 Aortic Valve Aortic ValveAortic Stenosis V10.75m/[place] Mean GR.4mmHg V21.35m/[place] Peak GR.7mmHg LVOT Diameter2.5 (1.8-2.4cm)Doppler AVA2.73cm2 Pulmonic Valve V20.79m/s Tricuspid Valve TR Velocity2.46m/s [id number] Conclusion Moderately reduced left ventricular systolic function estimated ejection fraction of 35-40% in a glob al fashion. There is a grade 1 diastolic dysfunction. Normal right ventricular size and dimension. Normal right ventricular systolic function. Normal biatrial size and dimension. Normal aortic valve structure and function. Normal mitral valve structure and function. Normal tricuspid valve structure and function. The pulmonary valve is grossly normal. No pericardial effusion.
[2024-01-19] MEDS ORDERED: ACETAMINOPHEN 325 MG TAB PO PRN (21:30)
[2024-01-19] MEDS: TEMAZEPAM 15 MG CAP PO PRN (21:38)
[2024-01-19] MEDS: SACUBITRIL-VALSARTAN 24mg/26mg TAB PO SCH (21:40)
[2024-01-19] MEDS: ACETAMINOPHEN 325 MG TAB PO ONE (22:00)
[2024-01-20] VITALS (11 sets, daily range): BP systolic 97–134; BP diastolic 61–97; PULSE 105–136; RESP 18–22; TEMP 98.4–102.3; O2SAT 90–95
[2024-01-20] MEDS: NITROGLYCERIN 0.4 MG SL TAB SL PRN (04:26)
[2024-01-20] MEDS ORDERED: DIPH1TAB30 PO (05:02)
[2024-01-20] MEDS ORDERED: HEPARIN DRIP/D5W 100UNITS/ML 250 ML IV SCH (05:15)
[2024-01-20 06:16] LABS: Basophils # (auto) 0.1 10 ^3/uL (0-0.2); Basophils % (auto) 0.9 % (0.0-2.0); Eosinophils # (auto) 0 10 ^3/uL (0-0.8); Eosinophils % (auto) 0.1 % (0.0-7.0); Hematocrit 49.4 % (36.0-46.0); Hemoglobin 16.6 g/dL (12.2-16.2); Lymphocytes # (auto) 2.7 10 ^3/uL (0.4-5.4); Lymphocytes % (auto) 21.4 % (10.0-50.0); Mean Corpuscular Hemoglobin 29.3 pg (28.0-32.0); Mean Corpuscular Hgb Conc. 33.6 g/dL (32.0-36.0); Mean Corpuscular Volume 87.2 fL (80.0-100.0); Monocytes # (auto) 0.8 10 ^3/uL (0-1.3); Neutrophils # (auto) 8.9 10 ^3/uL (1.6-8.6); Neutrophils % (auto) 71.6 % (37.0-80.0); Nucleated Red Blood Cells % 0.1 %; Platelet Count (auto) 309 10^3/uL (140-450); Red Blood Cells 5.67 10^6/uL (4.0-5.20); Red Cell Distribution Width 14.8 % (11.8-14.3); White Blood Cell 12.5 10^3/uL (4.4-10.8)
[2024-01-20 06:29] LABS: INR 1.09 (0.9-1.15); Partial Thromboplastin Time 27.1 SEC (24.5-34.5); Prothrombin Time 11.5 sec (9.3-11.8)
[2024-01-20 06:37] LABS: Alanine Aminotransferase 79 U/L (7-40); Albumin 3.7 g/dL (3.2-4.8); Alkaline Phosphatase 557 U/L (46-116); Anion Gap 8 (5-15); Aspartate Aminotransferase 239 U/L (13-40); BUN/Creatinine Ratio 25.9 (10.0-20.0); Blood Urea Nitrogen 21 mg/dL (9-23); Calcium 9.5 mg/dL (8.7-10.4); Carbon Dioxide 24 mmol/L (20-31); Chloride 99 mmol/L (98-107); Glucose 284 mg/dL (74-106); Magnesium 1.7 mg/dL (1.6-2.6); Potassium 4.4 mmol/L (3.5-5.1); Sodium 131 mmol/L (136-145)
[2024-01-20 06:38] LABS: Bilirubin, Total 1.9 mg/dL (0.2-1.0); Total Protein 6.6 g/dL (5.7-8.2)
[2024-01-20] MEDS ORDERED: INSULIN LANTUS (GLARGINE) 1 /0.01ml (100units/ml) SC SCH (07:00)
[2024-01-20] MEDS ORDERED: cefTRIAXone 1GM/50ML D5W 50 ML IV ONE (11:00)
[2024-01-20] MEDS: SPIRONOLACTONE 25 MG TAB PO SCH (11:10)
[2024-01-20] MEDS: EMPAGLIFLOZIN 10 MG TAB PO SCH (11:11)
--- NOTE | 2024-01-20 11:11 | DVHPN2 ---
Consult Progress Note Date Seen: Jan 20, 2024 Subjective Review of Systems: CVS:Normal, RESPIRATORY:Normal, NEURO:Normal Other Systems: Denies any further chest pain. Appears lethargic Objective vital signs Vital Sign Date Time Temp Pulse Resp B/P (MAP) Pulse Ox O2 Delivery O2 Flow Rate FiO2 01/20/24 09:00 99.7 123 19 131/97 (108) 94 99.7 01/19/24 20:00 Room Air* 0 21 Total Intake and Output 01/19/24 01/19/24 01/20/24 15:00 23:00 07:00 Intake Total 600 ml 980 ml Balance 600 ml 980 ml medications Current Medications Medications Dose Ordered Sig/Sonia Route Start Time Stop Time Status Last Admin Dose Admin Nicotine 1 patch DAILY TD 01/19/24 10:00 Atorvastatin Calcium 40 mg HS PO 01/18/24 22:00 01/19/24 21:39 40 MG Aspirin 81 mg DAILY PO 01/19/24 10:00 01/19/24 09:48 81 MG Metoprolol Succinate 25 mg DAILY PO 01/19/24 10:00 01/19/24 09:51 25 MG Hydralazine HCl 10 mg Q6HP PRN IV 01/18/24 12:00 Ondansetron HCl 4 mg Q4HPRN PRN IV 01/18/24 12:30 01/18/24 12:35 4 MG Clopidogrel Bisulfate 75 mg DAILY PO 01/19/24 10:00 01/19/24 09:47 75 MG Nitroglycerin 0.4 mg Q5MINP PRN SL 01/18/24 13:30 01/20/24 04:50 0.4 MG Morphine Sulfate 2 mg Q30M PRN IV 01/18/24 13:30 01/20/24 02:02 2 MG Acetaminophen/ Hydrocodone Bitart 1 tab Q4HPRN PRN PO 01/18/24 13:45 01/19/24 21:31 1 TAB Morphine Sulfate 2 mg Q4HPRN PRN IV 01/18/24 13:45 01/19/24 23:02 2 MG Temazepam 15 mg HSPRN PRN PO 01/18/24 13:45 01/19/24 21:38 15 MG Diagnostic Test (Pha) 1 strip IQ4HR 01/19/24 00:00 01/20/24 08:00 1 STRIP Insulin Human Regular IQ4HR SC 01/19/24 00:00 01/20/24 08:09 15 UNITS Dextrose 50 ml UD PRN IV 01/18/24 23:00 Sacubitril/ Valsartan 1 tab BID PO 01/19/24 22:00 01/19/24 21:40 1 TAB Spironolactone 25 mg DAILY PO 01/20/24 10:00 Empaglifozin 10 mg DAILY PO 01/20/24 10:00 Acetaminophen 650 mg Q4HP PRN PO 01/19/24 21:30 Insulin Glargine 22 units DAILY@1000 SC 01/20/24 10:00 Examination: GENERAL:Abnormal (Lethargic), LUNGS:Abnormal (Diminished R>L), CVS:Normal, NEURO:Normal laboratory and microbiology Laboratory Tests 01/20/24 05:19 Test 01/20/24 05:19 Range/Units Serum Glucose 284 H 74-106 mg/dL Problem List/Assessment/Plan Problem List/Assessment/Plan Sepsis with PNA Evolved inferior wall ST-elevation myocardial infarction (>12 hours) Newly diagnosed ischemic cardiomyopathy Acute systolic congestive heart failure (HFrEF, LVEF 35-40%) Axj-fcileiu-ajydhbqwl diabetes mellitus with hyperglycemia Hypertension Dyslipidemia Nicotine dependence Cannabinoid use Obesity Plan/Recommendation (Dr. Mcarthur) * Echocardiogram: LVEF 35-40%, global hypokinesia, grade 1 diastolic dysfunction * Initiate LifeVest * Completed coronary angiography: Left ventricular end-diastolic pressure 6 mmHg. Dominant RCA with occlusion of the mid segment, 90% stenosis in proximal LAD, 80% stenosis in distal LAD, obtuse marginal with 50-60% stenosis. Completed manual thrombectomy of RCA, placement of stent in mid RCA, placement of stent in proximal LAD. * Currently on DAPT, statin, and GDM T (beta-elsa, ARNi, MRA and SGLT-2 inhibitors) * Monitor LFTs closely * Aggressive secondary prevention protocol as warranted * Tight glycemic control, weight loss, Mediterranean diet, exercise as tolerated * Strongly counseled on medical compliance. Follow-up with Cardiology within 1-2 weeks post-discharge * Blood cultures, repeat CXR, initiate broad-spectrum ABX. Rest of work-up per primary care team Discussed the case with Dr. Mcarthur & patient: Currently status post stent placement to mid RCA and proximal LAD. Continue with DAPT, statin, and GDMT for CHF. Given ischemic cardiomyopathy with an EF 35-40%, we will continue with a LifeVest. Currently septic with PNA, continue primary care team recommendations. Kindly call in the setting of further work-up if deemed to be necessary. Cardiac stable at this time. Thank you for allowing us to care for this patient. Plan discussed with: Patient, Other Date of Service: Jan 20, 2024 Billing Provider: SUJATHA MCARTHUR MD Cardiology Common Codes: [id number] [facility] LA[facility] TORRES [facility] Jan 20, 2024 11:11
[2024-01-20] MEDS: INSULIN LANTUS (GLARGINE) 1 /0.01ml (100units/ml) SC SCH (11:26)
--- NOTE | 2024-01-20 12:06 | DVH ---
CHEST RADIOGRAPH Indication:PNA Technique: Single frontal view of the chest was obtained COMPARISON: XY CHEST PORTABLE on DOS: 01/18/24 FINDINGS: Lines and Tubes: None Lungs: Similar bibasilar airspace disease. Pleura: No effusion. No pneumothorax. Cardiomediastinal contours: Stable Bones: Unremarkable IMPRESSION: 1. No significant interval change.
[2024-01-20] MEDS: cefTRIAXone 1GM/50ML D5W 50 ML IV ONE (12:19)
--- NOTE | 2024-01-20 13:06 | DVHPN2 ---
Reviewed: Care Plan, H&P, Labs, Medications, Previous Orders, Radiology, Other (Consultation) Changes from previous H/P or p: No Changes Objective Vitals Vital Signs Date Time Temp Pulse Resp B/P (MAP) Pulse Ox O2 Delivery O2 Flow Rate FiO2 01/20/24 11:37 129 20 126/85 01/20/24 09:00 99.7 94 99.7 01/19/24 20:00 Room Air* 0 21 Intake/Output Intake and Output 01/20/24 07:00 Intake Total 1580 ml Balance 1580 ml Intake Oral 1580 ml # Voids 5 General Appearance: Alert, Oriented X3, Cooperative, moderate distress HEENT: Atraumatic Lungs: Clear to auscultation, Normal air movement Cardiovascular: Regular rate, Normal S1, Normal S2, No murmurs Abdomen: Normal bowel sounds, Soft, No tenderness Extremities: Other (Heart catheterization site with no bleeding/swelling/discharge) Medications Current Medications Medications Dose Ordered Sig/Sonia Route Start Time Stop Time Status Last Admin Dose Admin Nicotine 1 patch DAILY TD 01/19/24 10:00 Atorvastatin Calcium 40 mg HS PO 01/18/24 22:00 01/19/24 21:39 40 MG Aspirin 81 mg DAILY PO 01/19/24 10:00 01/20/24 11:11 81 MG Metoprolol Succinate 25 mg DAILY PO 01/19/24 10:00 01/20/24 11:33 25 MG Hydralazine HCl 10 mg Q6HP PRN IV 01/18/24 12:00 Ondansetron HCl 4 mg Q4HPRN PRN IV 01/18/24 12:30 01/18/24 12:35 4 MG Clopidogrel Bisulfate 75 mg DAILY PO 01/19/24 10:00 01/20/24 11:18 75 MG Nitroglycerin 0.4 mg Q5MINP PRN SL 01/18/24 13:30 01/20/24 04:50 0.4 MG Morphine Sulfate 2 mg Q30M PRN IV 01/18/24 13:30 01/20/24 11:37 2 MG Acetaminophen/ Hydrocodone Bitart 1 tab Q4HPRN PRN PO 01/18/24 13:45 01/19/24 21:31 1 TAB Morphine Sulfate 2 mg Q4HPRN PRN IV 01/18/24 13:45 01/19/24 23:02 2 MG Temazepam 15 mg HSPRN PRN PO 01/18/24 13:45 01/19/24 21:38 15 MG Diagnostic Test (Pha) 1 strip IQ4HR 01/19/24 00:00 01/20/24 12:19 1 STRIP Insulin Human Regular IQ4HR SC 01/19/24 00:00 01/20/24 12:42 12 UNITS Dextrose 50 ml UD PRN IV 01/18/24 23:00 Sacubitril/ Valsartan 1 tab BID PO 01/19/24 22:00 01/20/24 11:11 1 TAB Spironolactone 25 mg DAILY PO 01/20/24 10:00 01/20/24 11:10 25 MG Empaglifozin 10 mg DAILY PO 01/20/24 10:00 01/20/24 11:11 10 MG Acetaminophen 650 mg Q4HP PRN PO 01/19/24 21:30 Insulin Glargine 22 units DAILY@1000 SC 01/20/24 10:00 01/20/24 11:26 15 UNITS Ceftriaxone Sodium 50 ml @ 100 mls/hr DAILY@09 IV 01/21/24 09:00 Laboratory Results Laboratory Tests 01/20/24 05:19 Chemistry Test 01/20/24 05:19 Albumin 3.7 g/dL (3.2-4.8) Calcium Level 9.5 mg/dL (8.7-10.4) Magnesium Level 1.7 mg/dL (1.6-2.6) Total Protein 6.6 g/dL (5.7-8.2) Coagulation Test 01/20/24 05:19 Prothrombin Time 11.5 sec (9.3-11.8) Prothrombin Time INR 1.09 (0.9-1.15) Activated Partial Thromboplast Time 27.1 SEC (24.5-34.5) LFT Test 01/20/24 05:19 Alanine Aminotransferase (ALT) 79 U/L (7-40) H Alkaline Phosphatase 557 U/L (46-116) H Aspartate Amino Transferase (AST) 239 U/L (13-40) H Total Bilirubin 1.9 mg/dL (0.2-1.0) H Labs and/or images reviewed: Labs reviewed by me, Image(s) reviewed by me Assessment/Plan Assessment/Plan Sepsis secondary to right lower lobe community-acquired pneumonia: Rocephin doxycycline Evolved inferior wall ST-elevation myocardial infarction (>12 hours) status post heart cath by Dr. Rai with the stenting of mid RCA and proximal LAD and thrombectomy of mid RCA continue aspirin and Plavix Newly diagnosed ischemic cardiomyopathy Acute systolic congestive heart failure (HFrEF, LVEF 35-40%), LifeVest ordered Jardiance Entresto spironolactone Uncontrolled Vsz-uzatvkv-uzuafyqsz diabetes mellitus with hyperglycemia A1c more than 14 Hypertension Dyslipidemia Nicotine dependence Cannabinoid use Obesity Ordered rapid influenza test and Ghada test Time spent 75 minutes Patient is Full code Advanced care planning time 20 minutes Plan discussed with: Patient Date of Service: Jan 20, 2024 Billing Provider: ELIE GUSMAN MD Common Visit Codes: [id number] CARE 30-74 MIN ELIE GUSMAN MD Jan 20, 2024 13:06
[2024-01-20] MEDS: DOXYCYCLINE 100MG/250ML 250 ML IV SCH (13:31)
[2024-01-20 20:23] LABS: COVID19 ANTIGEN SOFIA FIA NEGATIVE (NEGATIVE); Rapid Influenza A Negative (Negative); Rapid Influenza B Negative (Negative)
[2024-01-21] VITALS (26 sets, daily range): BP systolic 85–144; BP diastolic 47–101; PULSE 84–180; RESP 15–36; TEMP 97.1–99.3; O2SAT 90–98
[2024-01-21] MEDS ORDERED: ACETAMINOPHEN 325 MG TAB PO PRN
[2024-01-21] MEDS ORDERED: guaiFENesin-DM 100/10mg/5ml SYR PO PRN
[2024-01-21 03:55] LABS: Urine Bacteria None Seen /hpf (None Seen)
[2024-01-21 04:17] LABS: Urine Blood Negative /uL (Negative); Urine Budding Yeast OCCASIONAL /hpf (None Seen); Urine Clarity Clear (Clear); Urine Color Yellow (Yellow); Urine Protein, UAD Negative (Negative); Urine Specific Gravity 1.036 (1.001-1.035); Urine Urobilinogen Normal (Negative); Urine WBC 8 /hpf (0 - 5); Urine pH 5.5 (5.0-9.0)
[2024-01-21] MEDS: AMIODARONE BOLUS KIT 100 ML IV ONE ×2 (06:55→07:09)
[2024-01-21] MEDS: AMIODARONE 450mg/250ml AE 250 ML IV ONE (07:05)
[2024-01-21] MEDS: AMIODARONE 450mg/250ml AE 250 ML IV SCH ×2 (07:08→13:01)
[2024-01-21] MEDS: cefTRIAXone 1GM/50ML D5W 50 ML IV SCH (08:19)
[2024-01-21] MEDS: fentaNYL CITRATE 100 MCG/2 ML VL ONE (09:25)
[2024-01-21] MEDS: MIDAZOLAM HCL 2MG/2ML 2ml VIAL (1mg/ml) ONE (09:26)
[2024-01-21] MEDS: MAGNESIUM SULFATE 1GM/100ML 100 ML IV ONE ×2 (09:36→09:47)
[2024-01-21 09:51] LABS: Basophils # (auto) 0 10 ^3/uL (0-0.2); Basophils % (auto) 0.2 % (0.0-2.0); Eosinophils # (auto) 0 10 ^3/uL (0-0.8); Eosinophils % (auto) 0.3 % (0.0-7.0); Hematocrit 47.2 % (36.0-46.0); Lymphocytes # (auto) 2.8 10 ^3/uL (0.4-5.4); Lymphocytes % (auto) 23.7 % (10.0-50.0); Mean Corpuscular Hemoglobin 29.7 pg (28.0-32.0); Mean Corpuscular Hgb Conc. 33.9 g/dL (32.0-36.0); Mean Corpuscular Volume 87.5 fL (80.0-100.0); Monocytes # (auto) 0.6 10 ^3/uL (0-1.3); Monocytes % (auto) 5.5 % (0.0-12.0); Neutrophils # (auto) 8.2 10 ^3/uL (1.6-8.6); Neutrophils % (auto) 70.3 % (37.0-80.0); Nucleated Red Blood Cells % 0.1 %; Platelet Count (auto) 335 10^3/uL (140-450); Red Blood Cells 5.39 10^6/uL (4.0-5.20); Red Cell Distribution Width 15.1 % (11.8-14.3); White Blood Cell 11.7 10^3/uL (4.4-10.8)
--- NOTE | 2024-01-21 09:57 | DVHPN2 ---
Consult Progress Note Date Seen: Jan 21, 2024 Subjective Other Systems: Notified of new onset SVT and A-fib uncontrolled. C/o chest pain 08/20 Objective vital signs Vital Sign Date Time Temp Pulse Resp B/P (MAP) Pulse Ox O2 Delivery O2 Flow Rate FiO2 01/21/24 08:22 168 124/68 01/21/24 08:00 18 96 Nasal Cannula* 2 28 01/21/24 05:00 99.3 99.3 Total Intake and Output 01/20/24 01/20/24 01/21/24 15:00 23:00 07:00 Intake Total 950 ml 350 ml Output Total 300 ml Balance 950 ml 50 ml medications Current Medications Medications Dose Ordered Sig/Sonia Route Start Time Stop Time Status Last Admin Dose Admin Nicotine 1 patch DAILY TD 01/19/24 10:00 Atorvastatin Calcium 40 mg HS PO 01/18/24 22:00 01/20/24 21:48 40 MG Aspirin 81 mg DAILY PO 01/19/24 10:00 01/21/24 08:19 81 MG Metoprolol Succinate 25 mg DAILY PO 01/19/24 10:00 01/21/24 08:22 25 MG Hydralazine HCl 10 mg Q6HP PRN IV 01/18/24 12:00 Ondansetron HCl 4 mg Q4HPRN PRN IV 01/18/24 12:30 01/18/24 12:35 4 MG Clopidogrel Bisulfate 75 mg DAILY PO 01/19/24 10:00 01/21/24 08:19 75 MG Nitroglycerin 0.4 mg Q5MINP PRN SL 01/18/24 13:30 01/20/24 04:50 0.4 MG Morphine Sulfate 2 mg Q30M PRN IV 01/18/24 13:30 01/20/24 19:50 2 MG Acetaminophen/ Hydrocodone Bitart 1 tab Q4HPRN PRN PO 01/18/24 13:45 01/20/24 18:55 1 TAB Morphine Sulfate 2 mg Q4HPRN PRN IV 01/18/24 13:45 01/21/24 07:11 2 MG Temazepam 15 mg HSPRN PRN PO 01/18/24 13:45 01/20/24 21:48 15 MG Diagnostic Test (Pha) 1 strip IQ4HR 01/19/24 00:00 01/21/24 07:53 1 STRIP Insulin Human Regular IQ4HR SC 01/19/24 00:00 01/21/24 08:00 6 UNITS Dextrose 50 ml UD PRN IV 01/18/24 23:00 Sacubitril/ Valsartan 1 tab BID PO 01/19/24 22:00 01/21/24 08:19 1 TAB Spironolactone 25 mg DAILY PO 01/20/24 10:00 01/20/24 11:10 25 MG Empaglifozin 10 mg DAILY PO 01/20/24 10:00 01/21/24 08:19 10 MG Acetaminophen 650 mg Q4HP PRN PO 01/19/24 21:30 Insulin Glargine 22 units DAILY@1000 SC 01/20/24 10:00 01/20/24 11:26 15 UNITS Ceftriaxone Sodium 50 ml @ 100 mls/hr DAILY@09 IV 01/21/24 09:00 01/21/24 08:19 100 MLS/HR Doxycycline Hyclate 250 ml @ 125 mls/hr Q12HR IV 01/20/24 13:15 01/20/24 21:44 125 MLS/HR Acetaminophen 650 mg Q6HP PRN PO 01/21/24 00:00 Guaifenesin/ Dextromethorphan 10 ml Q6HP PRN PO 01/21/24 00:00 Amiodarone HCl 250 ml @ 33.333 mls/ hr Q7H30M IV 01/21/24 07:00 01/21/24 12:59 01/21/24 07:08 33.333 MLS/HR Amiodarone HCl 250 ml @ 16.667 mls/ hr Q15H IV 01/21/24 13:00 Examination: GENERAL:Abnormal (Generalized weakness ), CVS:Abnormal (Inferior wall ST elevation with Q-waves), NEURO:Normal laboratory and microbiology Laboratory Tests 01/20/24 05:19 Test 01/20/24 05:19 Range/Units Serum Glucose 284 H 74-106 mg/dL Problem List/Assessment/Plan Problem List/Assessment/Plan Sepsis with PNA Evolved inferior wall ST-elevation myocardial infarction (>12 hours) Acute systolic congestive heart failure (HFrEF, LVEF 35-40%) New onset atrial fibrillation with rapid ventricular rate s/p DC cardioversion, now sinus tachycardia Supraventricular tachycardia Newly diagnosed ischemic cardiomyopathy Ymx-kowcqkf-akodhglrk diabetes mellitus with hyperglycemia Hypertension Dyslipidemia Nicotine dependence Cannabinoid use Obesity Plan/Recommendation (Dr. Mcarthur) * Echocardiogram: LVEF 35-40%, global hypokinesia, grade 1 diastolic dysfunction * Initiate LifeVest * Completed coronary angiography: Left ventricular end-diastolic pressure 6 mmHg. Dominant RCA with occlusion of the mid segment, 90% stenosis in proximal LAD, 80% stenosis in distal LAD, obtuse marginal with 50-60% stenosis. Completed manual thrombectomy of RCA, placement of stent in mid RCA, placement of stent in proximal LAD. * Continue amiodarone drip per pharmacy protocol * Therapeutic Lovenox. Transition to NOAC when appropriate * [id number] Score 5. HAS-BLED Score 1 * Plavix therapy, statin, and GDM T (beta-elsa, ARNi, MRA and SGLT-2 inhibitors) * Monitor LFTs closely * Aggressive secondary prevention protocol as warranted * Tight glycemic control, weight loss, Mediterranean diet, exercise as tolerated * Strongly counseled on medical compliance. Follow-up with Cardiology within 1-2 weeks post-discharge * Upgrade to ICU: Blood work pending. STAT echo to rule out mechanical complications of CT. Discussed the case with Dr. Mcarthur & patient: Currently status post stent placement to mid RCA and proximal LAD. Notified of new onset SVT/A-fib with RVR. Medicated with adenosine 6mg and 12mg, unsuccessful. Given clinical instability, DC Cardioversion provided at 50J with successful transition into a sinus tachycardia rhythm with associated inferior wall ST segment elevation with Q-waves. Blood work pending. Upgrade to ICU. Obtain STAT transthoracic echocardiogram to rule out mechanical complications of CT. Continue antiarrhythmic therapy. Continue Plavix therapy, therapeutic Lovenox, statin, and GDMT for CHF as tolerated. Given ischemic cardiomyopathy with an EF 35-40% continue with a LifeVest. Dr. Mcarthur notified of patient's change in status, including medical management, DC cardioversion, and 12-lead electrocardiogram changes. Thank you for allowing us to care for this patient. Critical care time: 60 min Plan discussed with: Patient, Other Date of Service: Jan 21, 2024 Billing Provider: SUJATHA MCARTHUR MD Cardiology Common Codes: [id number] CARE 30-74 MIN [facility] Jan 21, 2024 09:57
[2024-01-21 10:13] LABS: Alanine Aminotransferase 54 U/L (7-40); Albumin 3.3 g/dL (3.2-4.8); Alkaline Phosphatase 470 U/L (46-116); Anion Gap 8 (5-15); Aspartate Aminotransferase 111 U/L (13-40); BUN/Creatinine Ratio 28.6 (10.0-20.0); Bilirubin, Total 1.5 mg/dL (0.2-1.0); Blood Urea Nitrogen 28 mg/dL (9-23); Calcium 8.8 mg/dL (8.7-10.4); Carbon Dioxide 22 mmol/L (20-31); Chloride 100 mmol/L (98-107); Glucose 323 mg/dL (74-106); Magnesium 1.6 mg/dL (1.6-2.6); Potassium 4.5 mmol/L (3.5-5.1); Sodium 130 mmol/L (136-145); Total Protein 6.3 g/dL (5.7-8.2)
--- NOTE | 2024-01-21 11:25 | DVHPN2 ---
Reviewed: Care Plan, H&P, Labs, Medications, Previous Orders, Radiology, Other (Consultation) Changes from previous H/P or p: No Changes Objective Vitals Vital Signs Date Time Temp Pulse Resp B/P (MAP) Pulse Ox O2 Delivery O2 Flow Rate FiO2 01/21/24 10:30 92 22 91/56 (68) 98 01/21/24 10:00 98.5 98.5 01/21/24 08:00 Nasal Cannula* 2 28 Intake/Output Intake and Output 01/21/24 07:00 Intake Total 1300 ml Output Total 300 ml Balance 1000 ml Intake Oral 800 ml IV Total 500 ml Output Urine Total 300 ml # Voids 3 General Appearance: Alert, Oriented X3, Cooperative, moderate distress HEENT: Atraumatic Lungs: Clear to auscultation, Normal air movement Cardiovascular: Regular rate, Normal S1, Normal S2, No murmurs Abdomen: Normal bowel sounds, Soft, No tenderness Extremities: Other (Heart catheterization site with no bleeding/swelling/discharge) Medications Current Medications Medications Dose Ordered Sig/Sonia Route Start Time Stop Time Status Last Admin Dose Admin Nicotine 1 patch DAILY TD 01/19/24 10:00 Atorvastatin Calcium 40 mg HS PO 01/18/24 22:00 01/20/24 21:48 40 MG Metoprolol Succinate 25 mg DAILY PO 01/19/24 10:00 01/21/24 08:22 25 MG Hydralazine HCl 10 mg Q6HP PRN IV 01/18/24 12:00 Ondansetron HCl 4 mg Q4HPRN PRN IV 01/18/24 12:30 01/18/24 12:35 4 MG Clopidogrel Bisulfate 75 mg DAILY PO 01/19/24 10:00 01/21/24 08:19 75 MG Nitroglycerin 0.4 mg Q5MINP PRN SL 01/18/24 13:30 01/20/24 04:50 0.4 MG Morphine Sulfate 2 mg Q30M PRN IV 01/18/24 13:30 01/20/24 19:50 2 MG Acetaminophen/ Hydrocodone Bitart 1 tab Q4HPRN PRN PO 01/18/24 13:45 01/20/24 18:55 1 TAB Morphine Sulfate 2 mg Q4HPRN PRN IV 01/18/24 13:45 01/21/24 07:11 2 MG Temazepam 15 mg HSPRN PRN PO 01/18/24 13:45 01/20/24 21:48 15 MG Diagnostic Test (Pha) 1 strip IQ4HR 01/19/24 00:00 01/21/24 07:53 1 STRIP Insulin Human Regular IQ4HR SC 01/19/24 00:00 01/21/24 08:00 6 UNITS Dextrose 50 ml UD PRN IV 01/18/24 23:00 Sacubitril/ Valsartan 1 tab BID PO 01/19/24 22:00 01/21/24 08:19 1 TAB Spironolactone 25 mg DAILY PO 01/20/24 10:00 01/20/24 11:10 25 MG Empaglifozin 10 mg DAILY PO 01/20/24 10:00 01/21/24 08:19 10 MG Acetaminophen 650 mg Q4HP PRN PO 01/19/24 21:30 Insulin Glargine 22 units DAILY@1000 SC 01/20/24 10:00 01/20/24 11:26 15 UNITS Ceftriaxone Sodium 50 ml @ 100 mls/hr DAILY@09 IV 01/21/24 09:00 01/21/24 08:19 100 MLS/HR Doxycycline Hyclate 250 ml @ 125 mls/hr Q12HR IV 01/20/24 13:15 01/20/24 21:44 125 MLS/HR Acetaminophen 650 mg Q6HP PRN PO 01/21/24 00:00 Guaifenesin/ Dextromethorphan 10 ml Q6HP PRN PO 01/21/24 00:00 Amiodarone HCl 250 ml @ 33.333 mls/ hr Q7H30M IV 01/21/24 07:00 01/21/24 12:59 01/21/24 07:08 33.333 MLS/HR Amiodarone HCl 250 ml @ 16.667 mls/ hr Q15H IV 01/21/24 13:00 Enoxaparin Sodium 100 mg Q12HR SC 01/21/24 22:00 Laboratory Results Laboratory Tests 01/21/24 09:45 Chemistry Test 01/21/24 09:45 Albumin 3.3 g/dL (3.2-4.8) Calcium Level 8.8 mg/dL (8.7-10.4) Magnesium Level 1.6 mg/dL (1.6-2.6) Total Protein 6.3 g/dL (5.7-8.2) Cardiac Markers Test 01/21/24 09:45 B-Type Natriuretic Peptide 371.73 pg/mL (0-100) LFT Test 01/21/24 09:45 Alanine Aminotransferase (ALT) 54 U/L (7-40) H Alkaline Phosphatase 470 U/L (46-116) H Aspartate Amino Transferase (AST) 111 U/L (13-40) H Total Bilirubin 1.5 mg/dL (0.2-1.0) H Urinalysis Test 01/21/24 03:51 Urine Color Yellow (Yellow) Urine Clarity Clear (Clear) Urine pH 5.5 (5.0-9.0) Urine Specific [place] 1.036 (1.001-1.035) Urine Protein Negative (Negative) Urine Ketones Negative (Negative) Urine Blood Negative /uL (Negative) Urine Nitrite Negative (Negative) Urine Bilirubin Negative (Negative) Urine Urobilinogen Normal mg/dL (Negative) Urine Leukocyte Esterase Negative /uL (Negative) Urine RBC 1 /hpf (0 - 4) Urine WBC 8 /hpf (0 - 5) Urine Squamous Epithelial Cells None seen /hpf (<5) Urine Bacteria None seen /hpf (None Seen) Urine Yeast (Budding) Occasional /hpf (None Urine Glucose 4+ mg/dL (Normal) H Labs and/or images reviewed: Labs reviewed by me, Image(s) reviewed by me Assessment/Plan Assessment/Plan Sepsis secondary to right lower lobe community-acquired pneumonia: Rocephin doxycycline Inferior wall ST-elevation myocardial infarction (>12 hours) status post heart cath by Dr. Rai with the stenting of mid RCA and proximal LAD and thrombectomy of mid RCA continue aspirin and Plavix Newly diagnosed ischemic cardiomyopathy Acute systolic congestive heart failure (HFrEF, LVEF 35-40%), LifeVest ordered Jardiance Entresto spironolactone Uncontrolled Ous-lemeruv-kyxuptkgm diabetes mellitus with hyperglycemia A1c more than 14 Hypertension Dyslipidemia Nicotine dependence Cannabinoid use Obesity Flu test negative Ghada test negative Patient is Full code Patient developed AFib and SVT seen by Cardiology and transferred to ICU for stabilization Plan discussed with: Patient My Orders Orders - ELIE GUSMAN MD Procedure Category Date Status Time Doxycycline PHA 01/20/24 In Process 100mg/250ml 13:15 Date of Service: Jan 21, 2024 Billing Provider: ELIE GUSMAN MD Common Visit Codes: [id number] CARE 30-74 MIN ELIE GUSMAN MD Jan 21, 2024 11:25
--- NOTE | 2024-01-21 11:32 | DVHSR ---
APPROVED REPORT EXAM: LIMITED Two-dimensional and M-mode echocardiogram with Doppler and color Doppler. Blood Pressure: 101/70 mmHg INDICATION STEMI RISK FACTORS Obesity: Height: 5' 4", Weight: 216 DIMENSIONS LVDd5.7 (3.8-5.7cm)LA (2D)4.0 (1.9-4.0cm)Aortic Root (2.0-3.7cm) LVDs4.8 (2.5-4.0cm)LA (MM) (1.9-4.0cm)Aortic Cusp Exc (1.5-2.0cm) EF (%) 33.0 (55-70%)Rt. Atrium4.0 (1.9-4.0cm)Asc. Aorta cm Mitral Valve MitralMitral Stenosis E wave0.60m/sMV Mean GR.mmHg A wave0.80m/sMV Peak GR.mmHg E/A ratio0.82D MVAcm2 Aortic Valve Aortic ValveAortic Stenosis V10.70m/[place] Mean GR.4mmHg V21.30m/[place] Peak GR.7mmHg LVOT Diameter2.2 (1.8-2.4cm)Doppler AVA2.05cm2 Other Information Quality : Technically LimitedRhythm : Technically limited study due to body habitus, pt states she has chest pain. Conclusion Moderate to severely reduced left ventricular systolic function estimated ejection fraction of 35%. There is global wall hypokinesia. There is a grade 1 diastolic dysfunction. Normal right ventricular size and dimension. Normal right ventricular systolic function. Normal biatrial size and dimension. Normal aortic valve structure and function. Normal mitral valve structure and function. There is mild mitral valve regurgitation. There is mild tricuspid valve regurgitation. Pulmonary valve is grossly normal. No pericardial effusion.
[2024-01-21 14:01] LABS: Amphetamine Screen, Urine Neg (NEGATIVE); Barbiturate Scree,Urine Neg (NEGATIVE); Benzodiazephine Screen, Urine Neg (NEGATIVE); Cocaine Screen, Urine Neg (NEGATIVE); Opiate Scree,Urine Pos (NEGATIVE); Phencyclidine Screen, Urine Neg (NEGATIVE)
[2024-01-21 14:02] LABS: Cannabinoid Screen, Urine Neg (NEGATIVE)
[2024-01-21] MEDS: LACTULOSE 20Gm/30ML SOLN PO ONE (15:12)
--- NOTE | 2024-01-21 15:45 | DVHINCON2 ---
Date of service: Jan 21, [address] Josesito Hendrickson Reason for Consultation Acute hypoxic respiratory failure History of Present Illness 50-year-old woman history of CHF, hypertension, hyperlipidemia, noninsulin dependent diabetes mellitus, marijuana use, smoker for 25 years, obesity who presented with a chief complaint of dizziness. She underwent cardiac catheterization with two stent placements. This morning patient went into supraventricular tachycardia. She required cardioversion initiation of amiodarone drip. She was upgraded to intensive care unit. She was initiated on supplemental oxygen. Pulmonary consultation is called due to possible sepsis secondary to pneumonia and acute hypoxic respiratory failure. Review of systems: 14 point review of systems is negative unless otherwise noted above. Past medical history: CHF, hypertension, hyperlipidemia, ypw-atoyeba-jbiftneds diabetes mellitus, marijuana use, smoker for 25 years, obesity with a BMI of 37.1 Past surgical history: x5, unilateral oophorectomy, cholecystectomy Medications: Reviewed Allergies: Codeine. Family history: No family history of premature CAD. No family history of lung disease Social history: Smokes four 25 years, one pack per day. No alcohol or illicit drug use. Lives with family. Family History: Cardiovascular disease G8 MOTHER Diabetes mellitus G8 FATHER Allergies: Coded Allergies: Codeine (Verified Allergy, Intermediate, 07/21/12) Home Meds Reported Medications Diphenhydramine-Acetaminophen (Tylenol Pm Extra Strength 500-25 mg) 1 Tab Tab, 1 TAB PO, TAB 01/20/24 Current Medications Current Medications Medications (Trade) Dose Ordered Sig/Sonia Route PRN Reason Start Time Stop Time Status Last Admin Ceftriaxone Sodium 50 ml @ 100 mls/hr DAILY@09 IV 01/21/24 09:00 01/21/24 08:19 Acetaminophen (Tylenol Tablet) 650 mg Q6HP PRN PO PAIN SCALE 1-3 OR TEMP>100.4 01/21/24 00:00 Guaifenesin/ Dextromethorphan (Robitussin-Dm Liquid) 10 ml Q6HP PRN PO FOR COUGH 01/21/24 00:00 Amiodarone HCl 250 ml @ 33.333 mls/ hr Q7H30M IV 01/21/24 07:00 01/21/24 12:59 DC 01/21/24 07:08 Amiodarone HCl 250 ml @ 16.667 mls/ hr Q15H IV 01/21/24 13:00 01/21/24 13:01 Enoxaparin Sodium (Lovenox) 100 mg Q12HR SC 01/21/24 22:00 Bismuth Subsalicylate (Pepto Bismol Suspension) 524 mg Q1HP PRN PO FOR DIARRHEA 01/21/24 15:00 Vital Signs Vital Signs Date Time Temp Pulse Resp B/P (MAP) Pulse Ox O2 Delivery O2 Flow Rate FiO2 01/21/24 14:52 99 33 126/79 01/21/24 10:30 98 01/21/24 10:00 98.5 98.5 01/21/24 08:00 Nasal Cannula* 2 28 Physical Exam Gen.: Patient lying in bed in no apparent distress. On supplemental oxygen. Head: Normocephalic, atraumatic Eyes: EOMI/PERRLA. Ears: Normal hearing. Normal anatomy. Neck/trachea: Trachea midline, supple. Nose: Normal external anatomy. Mouth: Moist mucous membranes. Chest: Decreased air entry bilaterally. No wheezing or rhonchi. Cardio vascular: Positive S1, positive S2. Regular rate and rhythm. Abdomen: Positive bowel sounds in all 4 quadrants. Soft, non-tender, non- distended. : Deferred. Rectal: Deferred Skin: Warm, dry. Extremities: 2+ radial pulses bilaterally. No lower extremity edema. Neuro: Awake, alert, oriented x3. No gross motor or sensory deficits. Cranial nerves II through XII intact. Gait not assessed. Labs/Diagnostic Data Labs Test 01/21/24 11:35 01/21/24 09:45 01/21/24 03:51 01/20/24 19:15 Range/Units POC Glucose 349 H 70-106 mg/dl White Blood Count 11.7 H 4.4-10.8 10^3/uL Red Blood Count 5.39 H 4.0-5.20 10^6/uL Hemoglobin 16.0 12.2-16.2 g/dL Hematocrit 47.2 H 36.0-46.0 % Mean Corpuscular Volume 87.5 80.0-100.0 fL Mean Corpuscular Hemoglobin 29.7 28.0-32.0 pg Mean Corpuscular Hemoglobin Concent 33.9 32.0-36.0 g/dL Red Cell Distribution Width 15.1 H 11.8-14.3 % Platelet Count 335 140-450 10^3/uL Mean Platelet Volume 8.7 6.9-10.8 fL Neutrophils (%) (Auto) 70.3 37.0-80.0 % Lymphocytes (%) (Auto) 23.7 10.0-50.0 % Monocytes (%) (Auto) 5.5 0.0-12.0 % Eosinophils (%) (Auto) 0.3 0.0-7.0 % Basophils (%) (Auto) 0.2 0.0-2.0 % Neutrophils # (Auto) 8.2 1.6-8.6 10 ^3/uL Lymphocytes # (Auto) 2.8 0.4-5.4 10 ^3/uL Monocytes # (Auto) 0.6 0-1.3 10 ^3/uL Eosinophils # (Auto) 0 0-0.8 10 ^3/uL Basophils # (Auto) 0 0-0.2 10 ^3/uL Nucleated Red Blood Cells 0.1 % Sodium Level 130 L 136-145 mmol/L Potassium Level 4.5 3.5-5.1 mmol/L Chloride Level 100 98-107 mmol/L Carbon Dioxide Level 22 20-31 mmol/L Anion Gap 8 5-15 Blood Urea Nitrogen 28 H 9-23 mg/dL Creatinine 0.98 0.550-1.02 mg/dL Glomerular Filtration Rate Calc 67 >90 mL/min BUN/Creatinine Ratio 28.6 H 10.0-20.0 Serum Glucose 323 H 74-106 mg/dL Calcium Level 8.8 8.7-10.4 mg/dL Magnesium Level 1.6 1.6-2.6 mg/dL Total Bilirubin 1.5 H 0.2-1.0 mg/dL Aspartate Amino Transferase (AST) 111 H 13-40 U/L Alanine Aminotransferase (ALT) 54 H 7-40 U/L Alkaline Phosphatase 470 H 46-116 U/L Troponin I High Sensitivity 72592 *H </=34 ng/L B-Type Natriuretic Peptide 371.73 0-100 pg/mL Total Protein 6.3 5.7-8.2 g/dL Albumin 3.3 3.2-4.8 g/dL Urine Color Yellow Yellow Urine Clarity Clear Clear Urine pH 5.5 5.0-9.0 Urine Specific [place] 1.036 H 1.001-1.035 Urine Protein Negative Negative Urine Ketones Negative Negative Urine Blood Negative Negative /uL Urine Nitrite Negative Negative Urine Bilirubin Negative Negative Urine Urobilinogen Normal Negative mg/dL Urine Leukocyte Esterase Negative Negative /uL Urine RBC 1 0 - 4 /hpf Urine WBC 8 0 - 5 /hpf Urine Squamous Epithelial Cells None seen <5 /hpf Urine Bacteria None seen None Seen /hpf Urine Yeast (Budding) Occasional None Seen /hpf Urine Glucose 4+ H Normal mg/dL Urine Opiates Screen Pos NEGATIVE Urine Fentanyl Screen Neg NEGATIVE Urine Barbiturates Screen Neg NEGATIVE Urine Phencyclidine Screen Neg NEGATIVE Urine Amphetamines Screen Neg NEGATIVE Urine Benzodiazepines Screen Neg NEGATIVE Urine Cocaine Screen Neg NEGATIVE Urine Cannabinoids Screen Neg NEGATIVE Influenza Type A Antigen Negative Negative Influenza Type B Antigen Negative Negative SARS-CoV-2 Antigen (Rapid) Negative NEGATIVE Test 01/20/24 05:19 01/18/24 17:22 01/18/24 14:54 01/18/24 11:15 Range/Units Prothrombin Time 11.5 9.3-11.8 sec Prothrombin Time INR 1.09 0.9-1.15 Activated Partial Thromboplast Time 27.1 24.5-34.5 SEC Triglycerides Level 182 H < 150 mg/dL Cholesterol Level 140 < 200 mg/dL LDL Cholesterol 67 < 100 mg/dL HDL Cholesterol 49 40-59 mg/dL Thyroid Stimulating Hormone (TSH) 2.29 0.55-4.78 uIU/mL Hemoglobin A1c > 14.0 H <5.7 % A1C Microbiology Date/Time Source Procedure Growth Status 01/20/24 11:16 Blood Blood Culture - Preliminary NO GROWTH AFTER 24 HOURS OF INCUBATION. Resulted Assessment Impression: Acute hypoxic respiratory failure Sepsis secondary to right lower lobe community-acquired pneumonia Community-acquired pneumonia likely Gram-negative Obesity with a BMI of 37.1 Newly diagnosis ischemic cardiomyopathy Acute systolic Inferior wall ST-elevation myocardial infarction status post heart catheterization with stent placement Marijuana use Nicotine dependence Plan: Supplemental oxygen Keep O2 saturation above 92%. Chest x-ray report and images reviewed. Bibasilar airspace opacities. No pleural effusion or pneumothorax. Continue antibiotics. Send sputum for Gram stain and culture if able to produce. Incentive spirometry for atelectasis Continue amiodarone drip. Status post cardioversion Cardiology recommendations appreciated. Life vest has been ordered. Patient was on Jardiance, Entresto and spironolactone. Diet and lifestyle modifications for weight reduction given morbid obesity. Risk factors for obstructive sleep apnea. Recommend outpatient sleep study. DVT prophylaxis Condition: Critical Prognosis: Poor given multiple comorbidities. Rest of plan per hospitalist and other consultants. A total of 35 minutes of critical care time was spent reviewing the patient record, examining the patient, making a diagnostic and therapeutic plan, discussing this plan with the medical personnel, following up on diagnostic studies and following the patient for clinical stability excluding any and all procedures. At least 50% of this time was spent in direct, [id number] contact. Thank you Dr. Josesito Hendrickson for allowing me to participate in this patient's care. Further recommendations will depend on patient's clinical course. Please do not hesitate to contact me if you have any questions or concerns. This medical document was created using an electronic medical record system with [employer] dictation system. Although this document has been carefully reviewed, there may still be some phonetic and typographical errors. These areas are purely typographical due to imperfections of the software programs, and do not reflect any compromise in the patient's medical care. Plan discussed with: Patient, Other (THEODORE Oh/MD Destin) JEREMIAH VILLA MD Jan 21, 2024 15:45
[2024-01-21] MEDS: BISMUTH SUBSALICYLATE 262MG/15ml ORAL Susp PO PRN (18:02)
[2024-01-21] MEDS: ENOXAPARIN SOD 100 MG/1 ML SYRINGE SC SCH (22:02)
[2024-01-21] MEDS: IODIXANOL 320MG/ML 100ML BTL IV ONE (23:09)
[2024-01-21] MEDS: HEPARIN IN NS 1000Units/500mL 1,500 ML ONE (23:09)
[2024-01-22] VITALS (21 sets, daily range): BP systolic 91–137; BP diastolic 53–92; PULSE 88–108; RESP 16–37; TEMP 98–98.7; O2SAT 93–100
[2024-01-22 03:22] LABS: Basophils # (auto) 0.1 10 ^3/uL (0-0.2); Basophils % (auto) 0.6 % (0.0-2.0); Eosinophils # (auto) 0.1 10 ^3/uL (0-0.8); Eosinophils % (auto) 0.5 % (0.0-7.0); Hemoglobin 16.1 g/dL (12.2-16.2); Lymphocytes # (auto) 2.1 10 ^3/uL (0.4-5.4); Lymphocytes % (auto) 15.4 % (10.0-50.0); Mean Corpuscular Hgb Conc. 32.8 g/dL (32.0-36.0); Mean Corpuscular Volume 88.3 fL (80.0-100.0); Monocytes # (auto) 1.1 10 ^3/uL (0-1.3); Monocytes % (auto) 7.8 % (0.0-12.0); Neutrophils # (auto) 10.4 10 ^3/uL (1.6-8.6); Neutrophils % (auto) 75.7 % (37.0-80.0); Platelet Count (auto) 327 10^3/uL (140-450); Red Blood Cells 5.55 10^6/uL (4.0-5.20); Red Cell Distribution Width 15.2 % (11.8-14.3); White Blood Cell 13.7 10^3/uL (4.4-10.8)
[2024-01-22 03:48] LABS: Alanine Aminotransferase 48 U/L (7-40); Albumin 3.7 g/dL (3.2-4.8); Alkaline Phosphatase 435 U/L (46-116); Anion Gap 6 (5-15); Aspartate Aminotransferase 81 U/L (13-40); Blood Urea Nitrogen 20 mg/dL (9-23); Calcium 9.5 mg/dL (8.7-10.4); Carbon Dioxide 19 mmol/L (20-31); Chloride 106 mmol/L (98-107); Glucose 170 mg/dL (74-106); Magnesium 2.1 mg/dL (1.6-2.6); Potassium 3.7 mmol/L (3.5-5.1); Sodium 131 mmol/L (136-145)
[2024-01-22 03:49] LABS: Bilirubin, Total 0.8 mg/dL (0.2-1.0); Total Protein 6.9 g/dL (5.7-8.2)
--- NOTE | 2024-01-22 08:12 | DVHPN2 ---
Reviewed: Care Plan, H&P, Labs, Medications, Previous Orders, Radiology, Other (Consultation) Changes from previous H/P or p: No Changes Objective Vitals Vital Signs Date Time Temp Pulse Resp B/P (MAP) Pulse Ox O2 Delivery O2 Flow Rate FiO2 01/22/24 04:00 95 01/22/24 02:50 20 119/79 01/22/24 02:00 95 01/22/24 00:00 98.0 98.0 01/21/24 20:00 Nasal Cannula* 2 28 Intake/Output Intake and Output 01/22/24 07:00 Intake Total 1399.871 ml Output Total 600 ml Balance 799.871 ml Intake Oral 450 ml IV Total 949.871 ml Output Urine Total 600 ml # Voids 4 # Bowel Movements 4 General Appearance: Alert, Oriented X3, Cooperative, moderate distress HEENT: Atraumatic Lungs: Clear to auscultation, Normal air movement Cardiovascular: Regular rate, Normal S1, Normal S2, No murmurs Abdomen: Normal bowel sounds, Soft, No tenderness Extremities: Other (Heart catheterization site with no bleeding/swelling/discharge) Medications Current Medications Medications Dose Ordered Sig/Sonia Route Start Time Stop Time Status Last Admin Dose Admin Nicotine 1 patch DAILY TD 01/19/24 10:00 Atorvastatin Calcium 40 mg HS PO 01/18/24 22:00 01/21/24 22:01 40 MG Metoprolol Succinate 25 mg DAILY PO 01/19/24 10:00 01/21/24 08:22 25 MG Hydralazine HCl 10 mg Q6HP PRN IV 01/18/24 12:00 Ondansetron HCl 4 mg Q4HPRN PRN IV 01/18/24 12:30 01/18/24 12:35 4 MG Clopidogrel Bisulfate 75 mg DAILY PO 01/19/24 10:00 01/21/24 08:19 75 MG Nitroglycerin 0.4 mg Q5MINP PRN SL 01/18/24 13:30 01/20/24 04:50 0.4 MG Morphine Sulfate 2 mg Q30M PRN IV 01/18/24 13:30 01/21/24 19:51 2 MG Acetaminophen/ Hydrocodone Bitart 1 tab Q4HPRN PRN PO 01/18/24 13:45 01/20/24 18:55 1 TAB Morphine Sulfate 2 mg Q4HPRN PRN IV 01/18/24 13:45 01/22/24 02:20 2 MG Temazepam 15 mg HSPRN PRN PO 01/18/24 13:45 01/20/24 21:48 15 MG Diagnostic Test (Pha) 1 strip IQ4HR 01/19/24 00:00 01/22/24 03:50 1 STRIP Insulin Human Regular IQ4HR SC 01/19/24 00:00 01/22/24 03:51 3 UNITS Dextrose 50 ml UD PRN IV 01/18/24 23:00 Sacubitril/ Valsartan 1 tab BID PO 01/19/24 22:00 01/21/24 22:01 1 TAB Spironolactone 25 mg DAILY PO 01/20/24 10:00 01/20/24 11:10 25 MG Empaglifozin 10 mg DAILY PO 01/20/24 10:00 01/21/24 08:19 10 MG Acetaminophen 650 mg Q4HP PRN PO 01/19/24 21:30 Insulin Glargine 22 units DAILY@1000 SC 01/20/24 10:00 01/21/24 11:45 22 UNITS Ceftriaxone Sodium 50 ml @ 100 mls/hr DAILY@09 IV 01/21/24 09:00 01/21/24 08:19 100 MLS/HR Doxycycline Hyclate 250 ml @ 125 mls/hr Q12HR IV 01/20/24 13:15 01/21/24 22:00 125 MLS/HR Acetaminophen 650 mg Q6HP PRN PO 01/21/24 00:00 Guaifenesin/ Dextromethorphan 10 ml Q6HP PRN PO 01/21/24 00:00 Amiodarone HCl 250 ml @ 16.667 mls/ hr Q15H IV 01/21/24 13:00 01/22/24 07:25 16.667 MLS/HR Enoxaparin Sodium 100 mg Q12HR SC 01/21/24 22:00 01/21/24 22:02 100 MG Bismuth Subsalicylate 524 mg Q1HP PRN PO 01/21/24 15:00 01/21/24 18:02 524 MG Laboratory Results Laboratory Tests 01/22/24 03:02 Chemistry Test 01/21/24 09:45 01/22/24 03:02 Albumin 3.3 g/dL (3.2-4.8) 3.7 g/dL (3.2-4.8) Calcium Level 8.8 mg/dL (8.7-10.4) 9.5 mg/dL (8.7-10.4) Magnesium Level 1.6 mg/dL (1.6-2.6) 2.1 mg/dL (1.6-2.6) Total Protein 6.3 g/dL (5.7-8.2) 6.9 g/dL (5.7-8.2) Cardiac Markers Test 01/21/24 09:45 B-Type Natriuretic Peptide 371.73 pg/mL (0-100) LFT Test 01/21/24 09:45 01/22/24 03:02 Alanine Aminotransferase (ALT) 54 U/L (7-40) H 48 U/L (7-40) H Alkaline Phosphatase 470 U/L (46-116) H 435 U/L (46-116) H Aspartate Amino Transferase (AST) 111 U/L (13-40) H 81 U/L (13-40) H Total Bilirubin 1.5 mg/dL (0.2-1.0) H 0.8 mg/dL (0.2-1.0) Urinalysis Test 01/21/24 03:51 Urine Color Yellow (Yellow) Urine Clarity Clear (Clear) Urine pH 5.5 (5.0-9.0) Urine Specific [place] 1.036 (1.001-1.035) Urine Protein Negative (Negative) Urine Ketones Negative (Negative) Urine Blood Negative /uL (Negative) Urine Nitrite Negative (Negative) Urine Bilirubin Negative (Negative) Urine Urobilinogen Normal mg/dL (Negative) Urine Leukocyte Esterase Negative /uL (Negative) Urine RBC 1 /hpf (0 - 4) Urine WBC 8 /hpf (0 - 5) Urine Squamous Epithelial Cells None seen /hpf (<5) Urine Bacteria None seen /hpf (None Seen) Urine Yeast (Budding) Occasional /hpf (None Urine Glucose 4+ mg/dL (Normal) H Microbiology Microbiology Date/Time Source Procedure Growth Status 01/20/24 11:16 Blood Blood Culture - Preliminary NO GROWTH AFTER 24 HOURS OF INCUBATION. Resulted Assessment/Plan Assessment/Plan Sepsis secondary to right lower lobe community-acquired pneumonia: Rocephin doxycycline, pulmonary consult by Dr. Adame appreciated Inferior wall ST-elevation myocardial infarction (>12 hours) status post heart cath by Dr. Rai with the stenting of mid RCA and proximal LAD and thrombectomy of mid RCA continue aspirin and Plavix Newly diagnosed ischemic cardiomyopathy Acute systolic congestive heart failure (HFrEF, LVEF 35-40%), LifeVest ordered Jardiance Entresto spironolactone Uncontrolled Xqn-itjfsid-mijljlueu diabetes mellitus with hyperglycemia A1c more than 14 Hypertension Dyslipidemia Nicotine dependence Cannabinoid use Obesity Flu test negative Ghada test negative Patient is Full code Patient developed AFib and SVT, unsuccessful attempts at conversion by 6 mg and 12 mg adenosine, converted by cardioversion after 50 joules of shock, currently on amiodarone drip in the ICU; stat transthoracic echocardiogram done after cardioversion did not show any changes from the previous echo: Dr Mcarthur closely following. Time spent 75 minutes Patient is full code Patient is seen in the ICU Advanced care planning time 20 minutes Plan discussed with: Patient, Other (RN) My Orders Orders - ELIE GUSMAN MD Procedure Category Date Status Time [facility] 01/21/24 In Process Suspension (Pepto Bi 15:00 Date of Service: Jan 22, 2024 Billing Provider: ELIE GUSMAN MD Common Visit Codes: [id number] CARE 30-74 MIN, [id number] CARE-EACH +30MIN ELIE GUSMAN MD Jan 22, 2024 08:12
--- NOTE | 2024-01-22 09:54 | DVHPN2 ---
Consult Progress Note Date Seen: Jan 22, 2024 Subjective Review of Systems: CVS:Normal, RESPIRATORY:Normal, NEURO:Normal Other Systems: No overnight cardiac events reported Objective vital signs Vital Sign Date Time Temp Pulse Resp B/P (MAP) Pulse Ox O2 Delivery O2 Flow Rate FiO2 01/22/24 04:00 95 01/22/24 02:50 20 119/79 01/22/24 02:00 95 01/22/24 00:00 98.0 98.0 01/21/24 20:00 Nasal Cannula* 2 28 Total Intake and Output 01/21/24 01/21/24 01/22/24 15:00 23:00 07:00 Intake Total 516.534 ml 708.336 ml 175.001 ml Output Total 600 ml Balance 516.534 ml 108.336 ml 175.001 ml medications Current Medications Medications Dose Ordered Sig/Sonia Route Start Time Stop Time Status Last Admin Dose Admin Nicotine 1 patch DAILY TD 01/19/24 10:00 Atorvastatin Calcium 40 mg HS PO 01/18/24 22:00 01/21/24 22:01 40 MG Metoprolol Succinate 25 mg DAILY PO 01/19/24 10:00 01/21/24 08:22 25 MG Hydralazine HCl 10 mg Q6HP PRN IV 01/18/24 12:00 Ondansetron HCl 4 mg Q4HPRN PRN IV 01/18/24 12:30 01/18/24 12:35 4 MG Clopidogrel Bisulfate 75 mg DAILY PO 01/19/24 10:00 01/21/24 08:19 75 MG Nitroglycerin 0.4 mg Q5MINP PRN SL 01/18/24 13:30 01/20/24 04:50 0.4 MG Morphine Sulfate 2 mg Q30M PRN IV 01/18/24 13:30 01/21/24 19:51 2 MG Acetaminophen/ Hydrocodone Bitart 1 tab Q4HPRN PRN PO 01/18/24 13:45 01/20/24 18:55 1 TAB Morphine Sulfate 2 mg Q4HPRN PRN IV 01/18/24 13:45 01/22/24 02:20 2 MG Temazepam 15 mg HSPRN PRN PO 01/18/24 13:45 01/20/24 21:48 15 MG Diagnostic Test (Pha) 1 strip IQ4HR 01/19/24 00:00 01/22/24 03:50 1 STRIP Insulin Human Regular IQ4HR SC 01/19/24 00:00 01/22/24 03:51 3 UNITS Dextrose 50 ml UD PRN IV 01/18/24 23:00 Sacubitril/ Valsartan 1 tab BID PO 01/19/24 22:00 01/21/24 22:01 1 TAB Spironolactone 25 mg DAILY PO 01/20/24 10:00 01/20/24 11:10 25 MG Empaglifozin 10 mg DAILY PO 01/20/24 10:00 01/21/24 08:19 10 MG Acetaminophen 650 mg Q4HP PRN PO 01/19/24 21:30 Insulin Glargine 22 units DAILY@1000 SC 01/20/24 10:00 01/21/24 11:45 22 UNITS Ceftriaxone Sodium 50 ml @ 100 mls/hr DAILY@09 IV 01/21/24 09:00 01/21/24 08:19 100 MLS/HR Doxycycline Hyclate 250 ml @ 125 mls/hr Q12HR IV 01/20/24 13:15 01/21/24 22:00 125 MLS/HR Acetaminophen 650 mg Q6HP PRN PO 01/21/24 00:00 Guaifenesin/ Dextromethorphan 10 ml Q6HP PRN PO 01/21/24 00:00 Amiodarone HCl 250 ml @ 16.667 mls/ hr Q15H IV 01/21/24 13:00 01/22/24 07:25 16.667 MLS/HR Enoxaparin Sodium 100 mg Q12HR SC 01/21/24 22:00 01/21/24 22:02 100 MG Bismuth Subsalicylate 524 mg Q1HP PRN PO 01/21/24 15:00 01/21/24 18:02 524 MG Examination: LUNGS:Normal, CVS:Normal (NSR), NEURO:Normal laboratory and microbiology Laboratory Tests 01/22/24 03:02 Test 01/22/24 03:02 Range/Units Serum Glucose 170 H 74-106 mg/dL Problem List/Assessment/Plan Problem List/Assessment/Plan Sepsis with PNA Evolved inferior wall ST-elevation myocardial infarction (>12 hours) Acute systolic congestive heart failure (HFrEF, LVEF 35-40%) New onset atrial fibrillation with rapid ventricular rate s/p DC cardioversion, now sinus tachycardia Supraventricular tachycardia Newly diagnosed ischemic cardiomyopathy Syy-scoaigq-ablgwcfjs diabetes mellitus with hyperglycemia Hypertension Dyslipidemia Nicotine dependence Cannabinoid use Obesity Plan/Recommendation (Dr. Gonzales) * Echocardiogram: LVEF 35-40%, global hypokinesia, grade 1 diastolic dysfunction * Initiate LifeVest * Completed coronary angiography: Left ventricular end-diastolic pressure 6 mmHg. Dominant RCA with occlusion of the mid segment, 90% stenosis in proximal LAD, 80% stenosis in distal LAD, obtuse marginal with 50-60% stenosis. Completed manual thrombectomy of RCA, placement of stent in mid RCA, placement of stent in proximal LAD. * Antiarrhythmic, transition to amiodarone p.o. * NOAC therapy, transition to Eliquis BID * [id number] Score 5. HAS-BLED Score 1 * Plavix therapy, statin, and GDMT (beta-elsa, ARNi, MRA and SGLT-2 inhibitors) * Aggressive secondary prevention protocol as warranted * Tight glycemic control, weight loss, Mediterranean diet, exercise as tolerated * Strongly counseled on medical compliance. Follow-up with Cardiology within 1-2 weeks post-discharge * Downgrade to Telemetry Discussed the case with Dr. Gonzales & patient: Currently status post stent placement to mid RCA and proximal LAD. Continue antiarrhythmic therapy, single- antiplatelet therapy with Plavix, Eliquis BID, statin, and GDMT for CHF as tolerated. Given ischemic cardiomyopathy with an EF 35-40% continue with a LifeVest. Patient is to follow-up with Cardiology within 1-2 weeks post- discharge. There is no further cardiac work-up indicated at this time. Kindly call with any questions or concerns. Thank you for allowing us to care for this patient. Plan discussed with: Patient, Other Date of Service: Jan 22, 2024 Billing Provider: SUJATHA GONZALES MD Cardiology Common Codes: [id number] [facility] CORADOLAURA LEE [facility] Jan 22, 2024 09:54
[2024-01-22] MEDS: AMIODARONE HCL 200 MG TAB PO SCH (11:19)
[2024-01-22] MEDS: POTASSIUM CHL 20 Meq TABLET PO ONE (11:19)
[2024-01-22] MEDS: APIXABAN 5 MG TAB PO SCH (11:31)
[2024-01-22] MEDS: HYALURONIDASE 150 UNIT/1 ML SUBCUT ONE (15:41)
[2024-01-22 17:51] LABS: Urine Bacteria None Seen /hpf (None Seen)
[2024-01-22 18:20] LABS: Urine Blood Negative /uL (Negative); Urine Budding Yeast OCCASIONAL /hpf (None Seen); Urine Clarity Clear (Clear); Urine Color Light-Yellow (Yellow); Urine Protein, UAD Negative (Negative); Urine Specific Gravity 1.035 (1.001-1.035); Urine Urobilinogen Normal (Negative); Urine WBC 3 /hpf (0 - 5)
--- NOTE | 2024-01-22 19:08 | DVHPN2 ---
Progress Note - Dictate Date Seen: Jan 22, 2024 Medical Necessity Reason Pt with a Central, PICC or Fol: No Subjective Patient seen and examined at bedside. Breathing comfortably on room air. Overnight events reviewed. vital signs Vital Sign Date Time Temp Pulse Resp B/P (MAP) Pulse Ox O2 Delivery O2 Flow Rate FiO2 01/22/24 18:42 92 20 112/74 01/22/24 18:00 96 01/22/24 16:00 98.4 98.4 01/22/24 08:00 Room Air* 0 21 Total Intake and Output 01/21/24 01/21/24 01/22/24 15:00 23:00 07:00 Intake Total 516.534 ml 708.336 ml 191.668 ml Output Total 600 ml Balance 516.534 ml 108.336 ml 191.668 ml medications Current Medications Medications Dose Ordered Sig/Sonia Route Start Time Stop Time Status Last Admin Dose Admin Nicotine 1 patch DAILY TD 01/19/24 10:00 Atorvastatin Calcium 40 mg HS PO 01/18/24 22:00 01/21/24 22:01 40 MG Metoprolol Succinate 25 mg DAILY PO 01/19/24 10:00 01/22/24 11:21 25 MG Hydralazine HCl 10 mg Q6HP PRN IV 01/18/24 12:00 Ondansetron HCl 4 mg Q4HPRN PRN IV 01/18/24 12:30 01/18/24 12:35 4 MG Clopidogrel Bisulfate 75 mg DAILY PO 01/19/24 10:00 01/22/24 11:20 75 MG Nitroglycerin 0.4 mg Q5MINP PRN SL 01/18/24 13:30 01/20/24 04:50 0.4 MG Morphine Sulfate 2 mg Q30M PRN IV 01/18/24 13:30 01/22/24 14:24 2 MG Acetaminophen/ Hydrocodone Bitart 1 tab Q4HPRN PRN PO 01/18/24 13:45 01/20/24 18:55 1 TAB Morphine Sulfate 2 mg Q4HPRN PRN IV 01/18/24 13:45 01/22/24 18:42 2 MG Temazepam 15 mg HSPRN PRN PO 01/18/24 13:45 01/20/24 21:48 15 MG Diagnostic Test (Pha) 1 strip IQ4HR 01/19/24 00:00 01/22/24 16:00 1 STRIP Insulin Human Regular IQ4HR SC 01/19/24 00:00 01/22/24 17:56 9 UNITS Dextrose 50 ml UD PRN IV 01/18/24 23:00 Sacubitril/ Valsartan 1 tab BID PO 01/19/24 22:00 01/22/24 12:33 1 TAB Spironolactone 25 mg DAILY PO 01/20/24 10:00 01/22/24 11:31 25 MG Empaglifozin 10 mg DAILY PO 01/20/24 10:00 01/22/24 11:20 10 MG Acetaminophen 650 mg Q4HP PRN PO 01/19/24 21:30 Insulin Glargine 22 units DAILY@1000 SC 01/20/24 10:00 01/22/24 11:26 22 UNITS Ceftriaxone Sodium 50 ml @ 100 mls/hr DAILY@09 IV 01/21/24 09:00 01/22/24 09:00 100 MLS/HR Doxycycline Hyclate 250 ml @ 125 mls/hr Q12HR IV 01/20/24 13:15 01/22/24 12:33 125 MLS/HR Acetaminophen 650 mg Q6HP PRN PO 01/21/24 00:00 Guaifenesin/ Dextromethorphan 10 ml Q6HP PRN PO 01/21/24 00:00 Bismuth Subsalicylate 524 mg Q1HP PRN PO 01/21/24 15:00 01/21/24 18:02 524 MG Amiodarone HCl 200 mg Q12HR PO 01/22/24 10:00 01/22/24 11:19 200 MG Apixaban 5 mg BID PO 01/22/24 10:00 01/22/24 11:31 5 MG objective Gen.: Patient lying in bed in no apparent distress. Breathing on room air. Head: Normocephalic, atraumatic. Eyes: EOMI/PERRLA. Ears: Normal hearing. Normal anatomy. Neck/trachea: Trachea midline, supple. Nose: Normal external anatomy. Mouth: Moist mucous membranes. Chest: Decreased air entry bilaterally. No wheezing or rhonchi. Cardiovascular: Positive S1, positive S2. Regular rate and rhythm. Abdomen: Positive bowel sounds in all 4 quadrants. Soft, non-tender, non- distended. : Deferred. Rectal: Deferred. Skin: Warm, dry. Intact. Extremities: 2+ radial pulses bilaterally. No lower extremity edema. Neuro: Awake, alert, oriented x3. No gross motor or sensory deficits. Cranial nerves II through XII intact. Gait not assessed. laboratory and microbiology Laboratory Tests 01/22/24 03:02 Test 01/22/24 03:02 Range/Units Serum Glucose 170 H 74-106 mg/dL Assessment/Plan Impression: Acute hypoxic respiratory failure Sepsis secondary to right lower lobe community-acquired pneumonia Community-acquired pneumonia likely Gram-negative Obesity with a BMI of 37.1 Newly diagnosed ischemic cardiomyopathy Acute systolic congestive heart failure (HFrEF, LVEF 35-40%), Inferior wall ST-elevation myocardial infarction status post heart catheterization with stent placement Marijuana use Nicotine dependence Events: Breathing on room air Supplemental oxygen PRN No respiratory distress. Continue amiodarone drip. Continue antibiotics for pneumonia Patient is tolerating diet. Follow up cardiology recommendations. Recommend outpatient sleep study Labs and imaging reviewed. Rest of plan as noted below. Plan: Supplemental oxygen PRN Keep O2 saturation above 92%. Chest x-ray report and images reviewed. Bibasilar airspace opacities. No pleural effusion or pneumothorax. Continue antibiotics. Send sputum for Gram stain and culture if able to produce. Incentive spirometry for atelectasis Continue amiodarone drip. Status post cardioversion Cardiology recommendations appreciated. Life vest has been ordered. Patient was on Jardiance, Entresto and spironolactone. Diet and lifestyle modifications for weight reduction given morbid obesity. Risk factors for obstructive sleep apnea. Recommend outpatient sleep study. DVT prophylaxis Condition: Critical Prognosis: Poor given multiple comorbidities. Rest of plan per hospitalist and other consultants. A total of 35 minutes of critical care time was spent reviewing the patient record, examining the patient, making a diagnostic and therapeutic plan, discussing this plan with the medical personnel, following up on diagnostic studies and following the patient for clinical stability excluding any and all procedures. At least 50% of this time was spent in direct, [id number] contact. Thank you Dr. Joessito Hendrickson for allowing me to participate in this patient's care. Further recommendations will depend on patient's clinical course. Please do not hesitate to contact me if you have any questions or concerns. This medical document was created using an electronic medical record system with [employer] dictation system. Although this document has been carefully reviewed, there may still be some phonetic and typographical errors. These areas are purely typographical due to imperfections of the software programs, and do not reflect any compromise in the patient's medical care. Plan discussed with: Other (THEODORE Caal) Critical Care Time(min): 35 JEREMIAH VILLA MD Jan 22, 2024 19:08
[2024-01-23] VITALS (8 sets, daily range): BP systolic 94–112; BP diastolic 56–65; PULSE 88–95; RESP 18; TEMP 98–98.7; O2SAT 94–100
--- NOTE | 2024-01-23 10:19 | DVHPN2 ---
Reviewed: Care Plan, H&P, Labs, Medications, Previous Orders, Radiology, Other (Consultation) Changes from previous H/P or p: No Changes Objective Vitals Vital Signs Date Time Temp Pulse Resp B/P (MAP) Pulse Ox O2 Delivery O2 Flow Rate FiO2 01/23/24 08:30 94 18 96 Nasal Cannula* 2 28 01/23/24 05:00 98.4 100/61 (74) 98.4 Intake/Output Intake and Output 01/23/24 07:00 Intake Total 1240.001 ml Balance 1240.001 ml Intake Oral 1090 ml IV Total 150.001 ml # Voids 5 General Appearance: Alert, Oriented X3, Cooperative, moderate distress HEENT: Atraumatic Lungs: Clear to auscultation, Normal air movement Cardiovascular: Regular rate, Normal S1, Normal S2, No murmurs Abdomen: Normal bowel sounds, Soft, No tenderness Extremities: Other (Heart catheterization site with no bleeding/swelling/discharge) Medications Current Medications Medications Dose Ordered Sig/Sonia Route Start Time Stop Time Status Last Admin Dose Admin Nicotine 1 patch DAILY TD 01/19/24 10:00 Atorvastatin Calcium 40 mg HS PO 01/18/24 22:00 01/22/24 22:56 40 MG Metoprolol Succinate 25 mg DAILY PO 01/19/24 10:00 01/22/24 11:21 25 MG Hydralazine HCl 10 mg Q6HP PRN IV 01/18/24 12:00 Ondansetron HCl 4 mg Q4HPRN PRN IV 01/18/24 12:30 01/18/24 12:35 4 MG Clopidogrel Bisulfate 75 mg DAILY PO 01/19/24 10:00 01/22/24 11:20 75 MG Nitroglycerin 0.4 mg Q5MINP PRN SL 01/18/24 13:30 01/20/24 04:50 0.4 MG Morphine Sulfate 2 mg Q30M PRN IV 01/18/24 13:30 01/22/24 14:24 2 MG Acetaminophen/ Hydrocodone Bitart 1 tab Q4HPRN PRN PO 01/18/24 13:45 01/20/24 18:55 1 TAB Morphine Sulfate 2 mg Q4HPRN PRN IV 01/18/24 13:45 01/23/24 04:18 2 MG Temazepam 15 mg HSPRN PRN PO 01/18/24 13:45 01/20/24 21:48 15 MG Diagnostic Test (Pha) 1 strip IQ4HR 01/19/24 00:00 01/23/24 08:38 1 STRIP Insulin Human Regular IQ4HR SC 01/19/24 00:00 01/23/24 08:38 2 UNITS Dextrose 50 ml UD PRN IV 01/18/24 23:00 Sacubitril/ Valsartan 1 tab BID PO 01/19/24 22:00 01/22/24 21:36 1 TAB Spironolactone 25 mg DAILY PO 01/20/24 10:00 01/22/24 11:31 25 MG Empaglifozin 10 mg DAILY PO 01/20/24 10:00 01/22/24 11:20 10 MG Acetaminophen 650 mg Q4HP PRN PO 01/19/24 21:30 Insulin Glargine 22 units DAILY@1000 SC 01/20/24 10:00 01/22/24 11:26 22 UNITS Ceftriaxone Sodium 50 ml @ 100 mls/hr DAILY@09 IV 01/21/24 09:00 01/22/24 09:00 100 MLS/HR Doxycycline Hyclate 250 ml @ 125 mls/hr Q12HR IV 01/20/24 13:15 01/22/24 21:37 125 MLS/HR Acetaminophen 650 mg Q6HP PRN PO 01/21/24 00:00 Guaifenesin/ Dextromethorphan 10 ml Q6HP PRN PO 01/21/24 00:00 Bismuth Subsalicylate 524 mg Q1HP PRN PO 01/21/24 15:00 01/21/24 18:02 524 MG Amiodarone HCl 200 mg Q12HR PO 01/22/24 10:00 01/22/24 21:36 200 MG Apixaban 5 mg BID PO 01/22/24 10:00 01/22/24 21:36 5 MG Laboratory Results Laboratory Tests 01/22/24 03:02 Urinalysis Test 01/22/24 17:51 Urine Color Light-yellow (Yellow) Urine Clarity Clear (Clear) Urine pH 5.0 (5.0-9.0) Urine Specific [place] 1.035 (1.001-1.035) Urine Protein Negative (Negative) Urine Ketones Negative (Negative) Urine Blood Negative /uL (Negative) Urine Nitrite Negative (Negative) Urine Bilirubin Negative (Negative) Urine Urobilinogen Normal mg/dL (Negative) Urine Leukocyte Esterase Negative /uL (Negative) Urine RBC 1 /hpf (0 - 4) Urine WBC 3 /hpf (0 - 5) Urine Squamous Epithelial Cells Few /hpf (<5) Urine Bacteria None seen /hpf (None Seen) Urine Yeast (Budding) Occasional /hpf (None Urine Glucose 4+ mg/dL (Normal) H Microbiology Microbiology Date/Time Source Procedure Growth Status 01/20/24 11:16 Blood Blood Culture - Preliminary NO GROWTH AFTER 48 HOURS OF INCUBATION. Resulted Labs and/or images reviewed: Labs reviewed by me, Image(s) reviewed by me Assessment/Plan Assessment/Plan Sepsis secondary to right lower lobe community-acquired pneumonia: Rocephin doxycycline, pulmonary consult by Dr. Adame appreciated Inferior wall ST-elevation myocardial infarction (>12 hours) status post heart cath by Dr. Rai with the stenting of mid RCA and proximal LAD and thrombectomy of mid RCA continue aspirin and Plavix Newly diagnosed ischemic cardiomyopathy Acute systolic congestive heart failure (HFrEF, LVEF 35-40%), LifeVest ordered Jardiance Entresto spironolactone Uncontrolled Hnw-[id number] diabetes mellitus with hyperglycemia A1c more than 14 Hypertension Dyslipidemia Nicotine dependence Cannabinoid use Obesity Flu test negative Ghada test negative Patient is Full code Patient developed AFib and SVT, unsuccessful attempts at conversion by 6 mg and 12 mg adenosine, converted by cardioversion after 50 joules of shock, currently on amiodarone drip in the ICU; amiodarone tablets, stat transthoracic echocardiogram done after cardioversion did not show any changes from the previous echo: Dr Mcarthur closely following. Time spent 55 minutes Patient is full code Patient is seen in the tele bed Advanced care planning time 20 minutes Possible discharge tomorrow Plan discussed with: Patient Date of Service: Jan 23, 2024 Billing Provider: ELIE GUSMAN MD Common Visit Codes: [id number] INP/OBS CARE(HIGH) ELIE GUSMAN MD Jan 23, 2024 10:19
--- NOTE | 2024-01-23 19:36 | DVHPN2 ---
Progress Note - Dictate Date Seen: Jan 23, 2024 Medical Necessity Reason Pt with a Central, PICC or Fol: No Subjective Patient seen and examined at bedside. On supplemental oxygen Overnight events reviewed. vital signs Vital Sign Date Time Temp Pulse Resp B/P (MAP) Pulse Ox O2 Delivery O2 Flow Rate FiO2 01/23/24 18:45 105 20 107/63 01/23/24 13:00 98.7 96 98.7 01/23/24 08:30 Nasal Cannula* 2 28 Total Intake and Output 01/22/24 01/22/24 01/23/24 15:00 23:00 07:00 Intake Total 150.001 ml 1040 ml 50 ml Balance 150.001 ml 1040 ml 50 ml medications Current Medications Medications Dose Ordered Sig/Sonia Route Start Time Stop Time Status Last Admin Dose Admin Nicotine 1 patch DAILY TD 01/19/24 10:00 Atorvastatin Calcium 40 mg HS PO 01/18/24 22:00 01/22/24 22:56 40 MG Metoprolol Succinate 25 mg DAILY PO 01/19/24 10:00 01/23/24 10:17 25 MG Hydralazine HCl 10 mg Q6HP PRN IV 01/18/24 12:00 Ondansetron HCl 4 mg Q4HPRN PRN IV 01/18/24 12:30 01/18/24 12:35 4 MG Clopidogrel Bisulfate 75 mg DAILY PO 01/19/24 10:00 01/23/24 10:11 75 MG Nitroglycerin 0.4 mg Q5MINP PRN SL 01/18/24 13:30 01/20/24 04:50 0.4 MG Morphine Sulfate 2 mg Q30M PRN IV 01/18/24 13:30 01/22/24 14:24 2 MG Acetaminophen/ Hydrocodone Bitart 1 tab Q4HPRN PRN PO 01/18/24 13:45 01/20/24 18:55 1 TAB Morphine Sulfate 2 mg Q4HPRN PRN IV 01/18/24 13:45 01/23/24 18:45 2 MG Temazepam 15 mg HSPRN PRN PO 01/18/24 13:45 01/20/24 21:48 15 MG Diagnostic Test (Pha) 1 strip IQ4HR 01/19/24 00:00 01/23/24 16:18 1 STRIP Insulin Human Regular IQ4HR SC 01/19/24 00:00 01/23/24 16:15 6 UNITS Dextrose 50 ml UD PRN IV 01/18/24 23:00 Sacubitril/ Valsartan 1 tab BID PO 01/19/24 22:00 01/23/24 10:10 1 TAB Spironolactone 25 mg DAILY PO 01/20/24 10:00 01/23/24 10:16 25 MG Empaglifozin 10 mg DAILY PO 01/20/24 10:00 01/23/24 10:11 10 MG Acetaminophen 650 mg Q4HP PRN PO 01/19/24 21:30 Insulin Glargine 22 units DAILY@1000 SC 01/20/24 10:00 01/23/24 10:18 22 UNITS Ceftriaxone Sodium 50 ml @ 100 mls/hr DAILY@09 IV 01/21/24 09:00 01/23/24 10:21 100 MLS/HR Doxycycline Hyclate 250 ml @ 125 mls/hr Q12HR IV 01/20/24 13:15 01/23/24 10:21 125 MLS/HR Acetaminophen 650 mg Q6HP PRN PO 01/21/24 00:00 Guaifenesin/ Dextromethorphan 10 ml Q6HP PRN PO 01/21/24 00:00 Bismuth Subsalicylate 524 mg Q1HP PRN PO 01/21/24 15:00 01/21/24 18:02 524 MG Amiodarone HCl 200 mg Q12HR PO 01/22/24 10:00 01/23/24 10:10 200 MG Apixaban 5 mg BID PO 01/22/24 10:00 01/23/24 10:11 5 MG objective Gen.: Patient lying in bed in no apparent distress. On supplemental oxygen Head: Normocephalic, atraumatic. Eyes: EOMI/PERRLA. Ears: Normal hearing. Normal anatomy. Neck/trachea: Trachea midline, supple. Nose: Normal external anatomy. Mouth: Moist mucous membranes. Chest: Decreased air entry bilaterally. No wheezing or rhonchi. Cardiovascular: Positive S1, positive S2. Regular rate and rhythm. Abdomen: Positive bowel sounds in all 4 quadrants. Soft, non-tender, non- distended. : Deferred. Rectal: Deferred. Skin: Warm, dry. Intact. Extremities: 2+ radial pulses bilaterally. No lower extremity edema. Neuro: Awake, alert, oriented x3. No gross motor or sensory deficits. Cranial nerves II through XII intact. Gait not assessed. laboratory and microbiology Laboratory Tests 01/22/24 03:02 Test 01/22/24 03:02 Range/Units Serum Glucose 170 H 74-106 mg/dL Assessment/Plan Impression: Acute hypoxic respiratory failure Sepsis secondary to right lower lobe community-acquired pneumonia Community-acquired pneumonia likely Gram-negative Obesity with a BMI of 37.1 Newly diagnosed ischemic cardiomyopathy Acute systolic congestive heart failure (HFrEF, LVEF 35-40%), Inferior wall ST-elevation myocardial infarction status post heart catheterization with stent placement Marijuana use Nicotine dependence Events: Currently on supplemental O2 at 2 LPM NC Taper O2 as tolerated Incentive spirometry Continue antibiotics for pneumonia Continue amiodarone PO F/u Cardiology recommendations. Patient is tolerating diet. Follow up cardiology recommendations. Recommend outpatient sleep study Labs and imaging reviewed. Rest of plan as noted below. Plan: Supplemental oxygen Keep O2 saturation above 92%. Chest x-ray report and images reviewed. Bibasilar airspace opacities. No pleural effusion or pneumothorax. Continue antibiotics. Send sputum for Gram stain and culture if able to produce. Incentive spirometry for atelectasis Amiodarone drip - currently on PO amiodarone Status post cardioversion Cardiology recommendations appreciated. Life vest has been ordered. Patient was on Jardiance, Entresto and spironolactone. Diet and lifestyle modifications for weight reduction given morbid obesity. Risk factors for obstructive sleep apnea. Recommend outpatient sleep study. DVT prophylaxis Prognosis: Poor given multiple comorbidities. Rest of plan per hospitalist and other consultants. Thank you Dr. Josesito Hendrickson for allowing me to participate in this patient's care. Further recommendations will depend on patient's clinical course. Please do not hesitate to contact me if you have any questions or concerns. This medical document was created using an electronic medical record system with [employer] system. Although this document has been carefully reviewed, there may still be some phonetic and typographical errors. These areas are purely typographical due to imperfections of the software programs, and do not reflect any compromise in the patient's medical care. Plan discussed with: Patient, Other (THEODORE Westbrook) JEREMIAH VILLA MD Jan 23, 2024 19:36
[2024-01-24] VITALS (7 sets, daily range): BP systolic 106–118; BP diastolic 60–74; PULSE 86–101; RESP 17–20; TEMP 97.8–98.2; O2SAT 93–97
--- NOTE | 2024-01-24 10:36 | DVHPN2 ---
Reviewed: Care Plan, H&P, Labs, Medications, Previous Orders, Radiology, Other (Consultation) Changes from previous H/P or p: No Changes Objective Vitals Vital Signs Date Time Temp Pulse Resp B/P (MAP) Pulse Ox O2 Delivery O2 Flow Rate FiO2 01/24/24 09:31 98.0 87 18 117/69 (85) 96 98.0 01/23/24 20:00 Nasal Cannula* 2 28 Intake/Output Intake and Output 01/24/24 07:00 Intake Total 2005 ml Output Total 750 ml Balance 1255 ml Intake Oral 1705 ml IV Total 300 ml Output Urine Total 750 ml # Voids 2 # Bowel Movements 2 General Appearance: Alert, Oriented X3, Cooperative, moderate distress HEENT: Atraumatic Lungs: Clear to auscultation, Normal air movement Cardiovascular: Regular rate, Normal S1, Normal S2, No murmurs Abdomen: Normal bowel sounds, Soft, No tenderness Extremities: Other (Heart catheterization site with no bleeding/swelling/discharge) Medications Current Medications Medications Dose Ordered Sig/Sonia Route Start Time Stop Time Status Last Admin Dose Admin Nicotine 1 patch DAILY TD 01/19/24 10:00 Atorvastatin Calcium 40 mg HS PO 01/18/24 22:00 01/22/24 22:56 40 MG Metoprolol Succinate 25 mg DAILY PO 01/19/24 10:00 01/24/24 08:46 25 MG Hydralazine HCl 10 mg Q6HP PRN IV 01/18/24 12:00 Ondansetron HCl 4 mg Q4HPRN PRN IV 01/18/24 12:30 01/18/24 12:35 4 MG Clopidogrel Bisulfate 75 mg DAILY PO 01/19/24 10:00 01/24/24 08:47 75 MG Nitroglycerin 0.4 mg Q5MINP PRN SL 01/18/24 13:30 01/20/24 04:50 0.4 MG Morphine Sulfate 2 mg Q30M PRN IV 01/18/24 13:30 01/22/24 14:24 2 MG Acetaminophen/ Hydrocodone Bitart 1 tab Q4HPRN PRN PO 01/18/24 13:45 01/20/24 18:55 1 TAB Morphine Sulfate 2 mg Q4HPRN PRN IV 01/18/24 13:45 01/24/24 08:48 2 MG Temazepam 15 mg HSPRN PRN PO 01/18/24 13:45 01/20/24 21:48 15 MG Diagnostic Test (Pha) 1 strip IQ4HR 01/19/24 00:00 01/24/24 04:57 1 STRIP Insulin Human Regular IQ4HR SC 01/19/24 00:00 01/24/24 05:00 2 UNITS Dextrose 50 ml UD PRN IV 01/18/24 23:00 Sacubitril/ Valsartan 1 tab BID PO 01/19/24 22:00 01/24/24 08:47 1 TAB Spironolactone 25 mg DAILY PO 01/20/24 10:00 01/24/24 08:47 25 MG Empaglifozin 10 mg DAILY PO 01/20/24 10:00 01/24/24 08:45 10 MG Acetaminophen 650 mg Q4HP PRN PO 01/19/24 21:30 Insulin Glargine 22 units DAILY@1000 SC 01/20/24 10:00 01/24/24 08:58 22 UNITS Ceftriaxone Sodium 50 ml @ 100 mls/hr DAILY@09 IV 01/21/24 09:00 01/24/24 09:01 100 MLS/HR Doxycycline Hyclate 250 ml @ 125 mls/hr Q12HR IV 01/20/24 13:15 01/24/24 09:01 125 MLS/HR Acetaminophen 650 mg Q6HP PRN PO 01/21/24 00:00 Guaifenesin/ Dextromethorphan 10 ml Q6HP PRN PO 01/21/24 00:00 Bismuth Subsalicylate 524 mg Q1HP PRN PO 01/21/24 15:00 01/21/24 18:02 524 MG Amiodarone HCl 200 mg Q12HR PO 01/22/24 10:00 01/24/24 08:45 200 MG Apixaban 5 mg BID PO 01/22/24 10:00 01/24/24 08:47 5 MG Laboratory Results Laboratory Tests 01/22/24 03:02 Urinalysis Test 01/22/24 17:51 Urine Color Light-yellow (Yellow) Urine Clarity Clear (Clear) Urine pH 5.0 (5.0-9.0) Urine Specific [place] 1.035 (1.001-1.035) Urine Protein Negative (Negative) Urine Ketones Negative (Negative) Urine Blood Negative /uL (Negative) Urine Nitrite Negative (Negative) Urine Bilirubin Negative (Negative) Urine Urobilinogen Normal mg/dL (Negative) Urine Leukocyte Esterase Negative /uL (Negative) Urine RBC 1 /hpf (0 - 4) Urine WBC 3 /hpf (0 - 5) Urine Squamous Epithelial Cells Few /hpf (<5) Urine Bacteria None seen /hpf (None Seen) Urine Yeast (Budding) Occasional /hpf (None Urine Glucose 4+ mg/dL (Normal) H Microbiology Microbiology Date/Time Source Procedure Growth Status 01/20/24 11:16 Blood Blood Culture - Preliminary NO GROWTH AFTER 72 HOURS OF INCUBATION. Resulted Labs and/or images reviewed: Labs reviewed by me, Image(s) reviewed by me Assessment/Plan Assessment/Plan Sepsis secondary to right lower lobe community-acquired pneumonia: Rocephin doxycycline, pulmonary consult by Dr. Adame appreciated Inferior wall ST-elevation myocardial infarction (>12 hours) status post heart cath by Dr. Rai with the stenting of mid RCA and proximal LAD and thrombectomy of mid RCA continue aspirin and Plavix Newly diagnosed ischemic cardiomyopathy Acute systolic congestive heart failure (HFrEF, LVEF 35-40%), LifeVest ordered Jardiance Entresto spironolactone Uncontrolled Xfy-jtgysxe-kbiismlls diabetes mellitus with hyperglycemia A1c more than 14 Hypertension Dyslipidemia Nicotine dependence Cannabinoid use Obesity Flu test negative Ghada test negative Patient is Full code Patient developed AFib and SVT, unsuccessful attempts at conversion by 6 mg and 12 mg adenosine, converted by cardioversion after 50 joules of shock, currently on amiodarone drip in the ICU; amiodarone tablets, stat transthoracic echocardiogram done after cardioversion did not show any changes from the previous echo: Dr Mcarthur closely following. Time spent 55 minutes Patient is full code Patient is seen in the tele bed Advanced care planning time 20 minutes Awaiting cardiology clearance for discharge Plan discussed with: Patient Date of Service: Jan 24, 2024 Billing Provider: ELIE GUSMAN MD Common Visit Codes: [id number] INP/OBS CARE(HIGH) ELIE GUSMAN MD Jan 24, 2024 10:36
--- NOTE | 2024-01-24 20:00 | DVHPN2 ---
Progress Note - Dictate Date Seen: Jan 24, 2024 Medical Necessity Reason Pt with a Central, PICC or Fol: No Subjective Patient seen and examined at bedside. Breathing on room air. Overnight events reviewed. vital signs Vital Sign Date Time Temp Pulse Resp B/P (MAP) Pulse Ox O2 Delivery O2 Flow Rate FiO2 01/24/24 16:47 97.9 101 20 118/74 (89) 97 97.9 01/23/24 20:00 Nasal Cannula* 2 28 Total Intake and Output 01/23/24 01/23/24 01/24/24 15:00 23:00 07:00 Intake Total 300 ml 1080 ml 625 ml Output Total 750 ml Balance 300 ml 1080 ml -125 ml medications Current Medications Medications Dose Ordered Sig/Soina Route Start Time Stop Time Status Last Admin Dose Admin Nicotine 1 patch DAILY TD 01/19/24 10:00 Atorvastatin Calcium 40 mg HS PO 01/18/24 22:00 01/22/24 22:56 40 MG Metoprolol Succinate 25 mg DAILY PO 01/19/24 10:00 01/24/24 08:46 25 MG Hydralazine HCl 10 mg Q6HP PRN IV 01/18/24 12:00 Ondansetron HCl 4 mg Q4HPRN PRN IV 01/18/24 12:30 01/18/24 12:35 4 MG Clopidogrel Bisulfate 75 mg DAILY PO 01/19/24 10:00 01/24/24 08:47 75 MG Nitroglycerin 0.4 mg Q5MINP PRN SL 01/18/24 13:30 01/20/24 04:50 0.4 MG Morphine Sulfate 2 mg Q30M PRN IV 01/18/24 13:30 01/22/24 14:24 2 MG Acetaminophen/ Hydrocodone Bitart 1 tab Q4HPRN PRN PO 01/18/24 13:45 01/20/24 18:55 1 TAB Morphine Sulfate 2 mg Q4HPRN PRN IV 01/18/24 13:45 01/24/24 12:53 2 MG Temazepam 15 mg HSPRN PRN PO 01/18/24 13:45 01/20/24 21:48 15 MG Diagnostic Test (Pha) 1 strip IQ4HR 01/19/24 00:00 01/24/24 16:31 1 STRIP Insulin Human Regular IQ4HR SC 01/19/24 00:00 01/24/24 16:18 12 UNITS Dextrose 50 ml UD PRN IV 01/18/24 23:00 Sacubitril/ Valsartan 1 tab BID PO 01/19/24 22:00 01/24/24 08:47 1 TAB Spironolactone 25 mg DAILY PO 01/20/24 10:00 01/24/24 08:47 25 MG Empaglifozin 10 mg DAILY PO 01/20/24 10:00 01/24/24 08:45 10 MG Acetaminophen 650 mg Q4HP PRN PO 01/19/24 21:30 Insulin Glargine 22 units DAILY@1000 SC 01/20/24 10:00 01/24/24 08:58 22 UNITS Ceftriaxone Sodium 50 ml @ 100 mls/hr DAILY@09 IV 01/21/24 09:00 01/24/24 09:01 100 MLS/HR Doxycycline Hyclate 250 ml @ 125 mls/hr Q12HR IV 01/20/24 13:15 01/24/24 09:01 125 MLS/HR Acetaminophen 650 mg Q6HP PRN PO 01/21/24 00:00 Guaifenesin/ Dextromethorphan 10 ml Q6HP PRN PO 01/21/24 00:00 Bismuth Subsalicylate 524 mg Q1HP PRN PO 01/21/24 15:00 01/21/24 18:02 524 MG Amiodarone HCl 200 mg Q12HR PO 01/22/24 10:00 01/24/24 08:45 200 MG Apixaban 5 mg BID PO 01/22/24 10:00 01/24/24 08:47 5 MG objective Gen.: Patient lying in bed in no apparent distress. Breathing on room air. Head: Normocephalic, atraumatic. Eyes: EOMI/PERRLA. Ears: Normal hearing. Normal anatomy. Neck/trachea: Trachea midline, supple. Nose: Normal external anatomy. Mouth: Moist mucous membranes. Chest: Decreased air entry bilaterally. No wheezing or rhonchi. Cardiovascular: Positive S1, positive S2. Regular rate and rhythm. Abdomen: Positive bowel sounds in all 4 quadrants. Soft, non-tender, non- distended. : Deferred. Rectal: Deferred. Skin: Warm, dry. Intact. Extremities: 2+ radial pulses bilaterally. No lower extremity edema. Neuro: Awake, alert, oriented x3. No gross motor or sensory deficits. Cranial nerves II through XII intact. Gait not assessed. laboratory and microbiology Laboratory Tests 01/22/24 03:02 Test 01/22/24 03:02 Range/Units Serum Glucose 170 H 74-106 mg/dL Assessment/Plan Impression: Acute hypoxic respiratory failure Sepsis secondary to right lower lobe community-acquired pneumonia Community-acquired pneumonia likely Gram-negative Obesity with a BMI of 37.1 Newly diagnosed ischemic cardiomyopathy Acute systolic congestive heart failure (HFrEF, LVEF 35-40%), Inferior wall ST-elevation myocardial infarction status post heart catheterization with stent placement Marijuana use Nicotine dependence Events: Breathing on room air. No respiratory distress. Pain control Avoid oversedation Incentive spirometry Continue antibiotics for pneumonia Awaiting LifeVest. Continue amiodarone PO Cardiology recommendations appreciated. Recommend outpatient sleep study Labs and imaging reviewed. Rest of plan as noted below. Plan: Supplemental oxygen PRN Keep O2 saturation above 92%. Chest x-ray report and images reviewed. Bibasilar airspace opacities. No pleural effusion or pneumothorax. Continue antibiotics. Send sputum for Gram stain and culture if able to produce. Incentive spirometry for atelectasis Amiodarone drip - currently on PO amiodarone Status post cardioversion Cardiology recommendations appreciated. Life vest has been ordered. Patient was on Jardiance, Entresto and spironolactone. Diet and lifestyle modifications for weight reduction given morbid obesity. Risk factors for obstructive sleep apnea. Recommend outpatient sleep study. DVT prophylaxis Prognosis: Poor given multiple comorbidities. Rest of plan per hospitalist and other consultants. Thank you Dr. Josesito Hendrickson for allowing me to participate in this patient's care. Further recommendations will depend on patient's clinical course. Please do not hesitate to contact me if you have any questions or concerns. This medical document was created using an electronic medical record system with [employer] system. Although this document has been carefully reviewed, there may still be some phonetic and typographical errors. These areas are purely typographical due to imperfections of the software programs, and do not reflect any compromise in the patient's medical care. Plan discussed with: Patient, Other (THEODORE Westbrook) JEREMIAH VILLA MD Jan 24, 2024 20:00
[2024-01-25 01:00] VITALS: BP 108/64; PULSE 90; RESP 20; TEMP 98.1; O2SAT 97
[2024-01-25 05:00] VITALS: BP 111/68; PULSE 91; RESP 19; TEMP 99.2; O2SAT 96
[2024-01-25 08:00] VITALS: PULSE 90
[2024-01-25 08:14] VITALS: BP 124/85; PULSE 89; RESP 16; TEMP 97.5; O2SAT 94
--- NOTE | 2024-01-25 08:31 | ECG ---
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
[2024-01-25] MEDS ORDERED: ATOR-507 PO (09:44)
[2024-01-25] MEDS ORDERED: NIC21P TOP (09:44)
[2024-01-25] MEDS ORDERED: CLOP75TA28 PO (09:44)
[2024-01-25] MEDS ORDERED: SACU1TAB PO (09:44)
[2024-01-25] MEDS ORDERED: ASPI-628 PO (09:44)
[2024-01-25] MEDS ORDERED: AMIO200T33 PO (09:44)
[2024-01-25] MEDS ORDERED: EMPA1TAB PO (09:44)
[2024-01-25] MEDS ORDERED: APIX5TAB PO (09:44)
[2024-01-25] MEDS ORDERED: SPIR25TA PO (09:44)
[2024-01-25] MEDS ORDERED: METO25TA93 PO (09:44)
--- NOTE | 2024-01-25 09:51 | DVHDS2 ---
Discharge Summary Date of Admission Jan 18, 2024 at 13:26 Date of Discharge: Jan 25, 2024 Admitting Diagnosis Chest pain Wounds: Left heart catheterization Labs/Diagnostic Data: Laboratory Results Test 01/25/24 07:52 01/22/24 17:51 01/22/24 03:02 01/21/24 09:45 POC Glucose 155 mg/dl (70-106) Urine Color Light-yellow (Yellow) Urine Clarity Clear (Clear) Urine pH 5.0 (5.0-9.0) Urine Specific [place] 1.035 (1.001-1.035) Urine Protein Negative (Negative) Urine Ketones Negative (Negative) Urine Blood Negative /uL (Negative) Urine Nitrite Negative (Negative) Urine Bilirubin Negative (Negative) Urine Urobilinogen Normal mg/dL (Negative) Urine Leukocyte Esterase Negative /uL (Negative) Urine RBC 1 /hpf (0 - 4) Urine WBC 3 /hpf (0 - 5) Urine Squamous Epithelial Cells Few /hpf (<5) Urine Bacteria None seen /hpf (None Seen) Urine Yeast (Budding) Occasional /hpf (None Urine Glucose 4+ mg/dL (Normal) White Blood Count 13.7 10^3/uL (4.4-10.8) Red Blood Count 5.55 10^6/uL (4.0-5.20) Hemoglobin 16.1 g/dL (12.2-16.2) Hematocrit 49.0 % (36.0-46.0) Mean Corpuscular Volume 88.3 fL (80.0-100.0) Mean Corpuscular Hemoglobin 29.0 pg (28.0-32.0) Mean Corpuscular Hemoglobin Concent 32.8 g/dL (32.0-36.0) Red Cell Distribution Width 15.2 % (11.8-14.3) Platelet Count 327 10^3/uL (140-450) Mean Platelet Volume 8.6 fL (6.9-10.8) Neutrophils (%) (Auto) 75.7 % (37.0-80.0) Lymphocytes (%) (Auto) 15.4 % (10.0-50.0) Monocytes (%) (Auto) 7.8 % (0.0-12.0) Eosinophils (%) (Auto) 0.5 % (0.0-7.0) Basophils (%) (Auto) 0.6 % (0.0-2.0) Neutrophils # (Auto) 10.4 10 ^3/uL (1.6-8.6) Lymphocytes # (Auto) 2.1 10 ^3/uL (0.4-5.4) Monocytes # (Auto) 1.1 10 ^3/uL (0-1.3) Eosinophils # (Auto) 0.1 10 ^3/uL (0-0.8) Basophils # (Auto) 0.1 10 ^3/uL (0-0.2) Nucleated Red Blood Cells 0.0 % Sodium Level 131 mmol/L (136-145) Potassium Level 3.7 mmol/L (3.5-5.1) Chloride Level 106 mmol/L (98-107) Carbon Dioxide Level 19 mmol/L (20-31) Anion Gap 6 (5-15) Blood Urea Nitrogen 20 mg/dL (9-23) Creatinine 0.74 mg/dL (0.550-1.02) Glomerular Filtration Rate Calc 94 mL/min (>90) BUN/Creatinine Ratio 27.0 (10.0-20.0) Serum Glucose 170 mg/dL (74-106) Calcium Level 9.5 mg/dL (8.7-10.4) Magnesium Level 2.1 mg/dL (1.6-2.6) Total Bilirubin 0.8 mg/dL (0.2-1.0) Aspartate Amino Transferase (AST) 81 U/L (13-40) Alanine Aminotransferase (ALT) 48 U/L (7-40) Alkaline Phosphatase 435 U/L (46-116) Total Protein 6.9 g/dL (5.7-8.2) Albumin 3.7 g/dL (3.2-4.8) Troponin I High Sensitivity 11971 ng/L (</=34) B-Type Natriuretic Peptide 371.73 pg/mL (0-100) Test 01/21/24 03:51 01/20/24 19:15 01/20/24 05:19 01/18/24 17:22 Urine Opiates Screen Pos (NEGATIVE) Urine Fentanyl Screen Neg (NEGATIVE) Urine Barbiturates Screen Neg (NEGATIVE) Urine Phencyclidine Screen Neg (NEGATIVE) Urine Amphetamines Screen Neg (NEGATIVE) Urine Benzodiazepines Screen Neg (NEGATIVE) Urine Cocaine Screen Neg (NEGATIVE) Urine Cannabinoids Screen Neg (NEGATIVE) Influenza Type A Antigen Negative (Negative) Influenza Type B Antigen Negative (Negative) SARS-CoV-2 Antigen (Rapid) Negative (NEGATIVE) Prothrombin Time 11.5 sec (9.3-11.8) Prothrombin Time INR 1.09 (0.9-1.15) Activated Partial Thromboplast Time 27.1 SEC (24.5-34.5) Triglycerides Level 182 mg/dL (< 150) Cholesterol Level 140 mg/dL (< 200) LDL Cholesterol 67 mg/dL (< 100) HDL Cholesterol 49 mg/dL (40-59) Test 01/18/24 14:54 01/18/24 11:15 Thyroid Stimulating Hormone (TSH) 2.29 uIU/mL (0.55-4.78) Hemoglobin A1c > 14.0 % A1C (<5.7) Other Laboratory Tests 01/22/24 03:02 Brief Hx & Hospital Course: 8-year-old female with a history of hypertension hypercholesterolemia chronic smoking marijuana use diabetes congestive heart failure came in for chest pain. Patient had inferior wall ST-elevation UT and underwent left heart catheterization by Dr Mcarthur with the stenting of mid RCA and proximal LAD and thrombectomy of mid RCA placed on aspirin and Plavix . Postop patient developed AFib/SVT, hydralazine two doses did not worker cardioverted with the 50 joules of shock transferred to the ICU. Ejection fraction 35-40 percent. Repeat echocardiogram did not show any changes. Patient was placed on multiple medications including aspirin Plavix Lipitor Entresto metoprolol succinate Jardiance Eliquis. Patient was treated with doxycycline for aspiration pneumonia. At the time of discharge patient is stable with a stable vital signs. LifeVest was ordered which will be fitted at home cleared for discharge by Cardiology and advised the lipase can be delivered home. Patient was strongly advised to quit smoking. All medications transmitted to the pharmacy. She will follow up with Cardiology in two weeks. Flu test negative Ghada test neg Generalized Condition stable but poor at the time of discharge Consults/Reason for consult Cardiology Dr. Mcarthur Operations or Procedures Left heart catheterization Cardioversion Condition at Discharge: Poor Final Diagnosis/Problems List Sepsis secondary to right lower lobe community-acquired pneumonia: Rocephin doxycycline, pulmonary consult by Dr. Adame appreciated Inferior wall ST-elevation myocardial infarction (>12 hours) status post heart cath by Dr. Rai with the stenting of mid RCA and proximal LAD and thrombectomy of mid RCA continue aspirin and Plavix Newly diagnosed ischemic cardiomyopathy Acute systolic congestive heart failure (HFrEF, LVEF 35-40%), LifeVest ordered Jardiance Entresto spironolactone Uncontrolled [id number]-ejlzcxpix diabetes mellitus with hyperglycemia A1c more than 14 Hypertension Dyslipidemia Nicotine dependence Cannabinoid use Obesity Flu test negative Ghada test negative Patient is Full code Patient developed AFib and SVT Discharge Disposition: Home Discharge Instruct/Medications Diet: Cardiac 2g Na,low cholest Activity: Light activity Follow Up/Referral: Follow up with the Cardiology in two weeks Medications: Transmitted to the pharmacy 39 (Time Taken for discharge summary 39 minutes) Discharge Statement: "Patient was advised to return to the ER or call 911 if any headaches, dizziness, shortness of breath, chest pain, abdominal pain, bleeding, fevers, or worsening of medical condition. Patient was counseled about treatment plan, medications, possible side effects, patientverbalized understanding. All questions were answered to the best of my ability. This discharge took greater then 30 minutes in planning, reviewing documentation, counseling the patient, and discussing with other team members." ASSESSMENT ASSESSMENT Hospital Course Recovery was slow complicated by AFib and SVT Assessment Sepsis secondary to right lower lobe community-acquired pneumonia: Rocephin doxycycline, pulmonary consult by Dr. dAame appreciated Inferior wall ST-elevation myocardial infarction (>12 hours) status post heart cath by Dr. Rai with the stenting of mid RCA and proximal LAD and thrombectomy of mid RCA continue aspirin and Plavix Newly diagnosed ischemic cardiomyopathy Acute systolic congestive heart failure (HFrEF, LVEF 35-40%), LifeVest ordered Jardiance Entresto spironolactone Uncontrolled Dxf-hlotjyf-mugubzjdl diabetes mellitus with hyperglycemia A1c more than 14 Hypertension Dyslipidemia Nicotine dependence Cannabinoid use Obesity Flu test negative Ghada test negative Patient is Full code Patient developed AFib and SVT Date of Service: Jan 25, 2024 Billing Provider: ELIE GUSMAN MD Common Visit Codes: 79964-RXV/OBS DISCH DAY >30min ELIE GUSMAN MD Jan 25, 2024 09:51
[2024-01-25 11:28] VITALS: BP 124/85; PULSE 89
[2024-01-25 11:51] VITALS: BP 120/79; PULSE 100; RESP 19; TEMP 98.4; O2SAT 94
--- NOTE | 2024-01-25 18:36 | DVHPN2 ---
Progress Note - Dictate Date Seen: Jan 25, 2024 Medical Necessity Reason Pt with a Central, PICC or Fol: No Subjective Patient seen and examined at bedside. Breathing on room air. Overnight events reviewed. vital signs Vital Sign Date Time Temp Pulse Resp B/P (MAP) Pulse Ox O2 Delivery O2 Flow Rate FiO2 01/25/24 11:51 98.4 100 19 120/79 (93) 94 98.4 01/25/24 08:00 Room Air* 0 21 Total Intake and Output 01/24/24 01/24/24 01/25/24 15:00 23:00 07:00 Intake Total 300 ml 1940 ml 900 ml Balance 300 ml 1940 ml 900 ml objective Gen.: Patient lying in bed in no apparent distress. Breathing on room air. Head: Normocephalic, atraumatic. Eyes: EOMI/PERRLA. Ears: Normal hearing. Normal anatomy. Neck/trachea: Trachea midline, supple. Nose: Normal external anatomy. Mouth: Moist mucous membranes. Chest: Decreased air entry bilaterally. No wheezing or rhonchi. Cardiovascular: Positive S1, positive S2. Regular rate and rhythm. Abdomen: Positive bowel sounds in all 4 quadrants. Soft, non-tender, non- distended. : Deferred. Rectal: Deferred. Skin: Warm, dry. Intact. Extremities: 2+ radial pulses bilaterally. No lower extremity edema. Neuro: Awake, alert, oriented x3. No gross motor or sensory deficits. Cranial nerves II through XII intact. Gait not assessed. laboratory and microbiology Laboratory Tests 01/22/24 03:02 Test 01/22/24 03:02 Range/Units Serum Glucose 170 H 74-106 mg/dL Assessment/Plan Impression: Acute hypoxic respiratory failure Sepsis secondary to right lower lobe community-acquired pneumonia Community-acquired pneumonia likely Gram-negative Obesity with a BMI of 37.1 Newly diagnosed ischemic cardiomyopathy Acute systolic congestive heart failure (HFrEF, LVEF 35-40%), Inferior wall ST-elevation myocardial infarction status post heart catheterization with stent placement Marijuana use Nicotine dependence Events: Breathing on room air. No respiratory distress. Pain control Avoid oversedation Incentive spirometry Complete antibiotic course for pneumonia Awaiting LifeVest. Continue amiodarone PO Cardiology recommendations appreciated. Patient is stable for discharge from the pulmonary standpoint. Follow up in Pulmonary Clinic. Recommend chest x-ray in 6-8 weeks to document resolution of opacities Recommend outpatient sleep study Labs and imaging reviewed. Rest of plan as noted below. Plan: Supplemental oxygen PRN Keep O2 saturation above 92%. Chest x-ray report and images reviewed. Bibasilar airspace opacities. No pleural effusion or pneumothorax. Antibiotics. Send sputum for Gram stain and culture if able to produce. Incentive spirometry for atelectasis Amiodarone drip - currently on PO amiodarone Status post cardioversion Cardiology recommendations appreciated. Life vest has been ordered. Patient was on Jardiance, Entresto and spironolactone. Diet and lifestyle modifications for weight reduction given morbid obesity. Risk factors for obstructive sleep apnea. Recommend outpatient sleep study. DVT prophylaxis Prognosis: Guarded given multiple comorbidities. Rest of plan per hospitalist and other consultants. Thank you Dr. Josesito Hendrickson for allowing me to participate in this patient's care. Further recommendations will depend on patient's clinical course. Please do not hesitate to contact me if you have any questions or concerns. This medical document was created using an electronic medical record system with [employer] dictation system. Although this document has been carefully reviewed, there may still be some phonetic and typographical errors. These areas are purely typographical due to imperfections of the software programs, and do not reflect any compromise in the patient's medical care. Plan discussed with: Patient, Other (THEODORE Young) JEREMIAH VILLA MD Jan 25, 2024 18:36
== END 2024-01-25 14:00 | disposition home or self-care (01) | DRG 710 ==
LOC: ER 11:02 → EDBD 11:02 → TELE 13:26 → TELE-EAST 15:39 → ICU WEST 01-21 10:04 → TELE-EAST 01-22 22:19
PROVIDERS: ADMIT Registered Nurse General Practice; ATTEND Family Medicine
PROC: 027135Z Dilation of Coronary Artery, Two Arteries with Two Drug-eluting Intraluminal Devices, Percutaneous Approach (ICD-10-PCS; principal; 2024-01-18)
PROC: 4A023N7 Measurement of Cardiac Sampling and Pressure, Left Heart, Percutaneous Approach (ICD-10-PCS; 2024-01-18)
PROC: B211YZZ Fluoroscopy of Multiple Coronary Arteries using Other Contrast (ICD-10-PCS; 2024-01-18)
PROC: 02C03ZZ Extirpation of Matter from Coronary Artery, One Artery, Percutaneous Approach (ICD-10-PCS; 2024-01-18)
PROC: B215YZZ Fluoroscopy of Left Heart using Other Contrast (ICD-10-PCS; 2024-01-18)
DX: A41.9 Sepsis, unspecified organism (principal); J96.01 Acute respiratory failure with hypoxia; J69.0 Pneumonitis due to inhalation of food and vomit; I21.19 ST elevation (STEMI) myocardial infarction involving other coronary artery of inferior wall; I50.33 Acute on chronic diastolic (congestive) heart failure; J18.9 Pneumonia, unspecified organism; I47.10 Supraventricular tachycardia, unspecified; I11.0 Hypertensive heart disease with heart failure; N17.9 Acute kidney failure, unspecified; Z20.822 Contact with and (suspected) exposure to COVID-19; I25.5 Ischemic cardiomyopathy; I48.91 Unspecified atrial fibrillation; E11.65 Type 2 diabetes mellitus with hyperglycemia; E78.00 Pure hypercholesterolemia, unspecified; F12.10 Cannabis abuse, uncomplicated; G47.00 Insomnia, unspecified; E78.2 Mixed hyperlipidemia; E66.01 Morbid (severe) obesity due to excess calories; Z79.84 Long term (current) use of oral hypoglycemic drugs; Z88.5 Allergy status to narcotic agent; Z87.891 Personal history of nicotine dependence; Z90.721 Acquired absence of ovaries, unilateral; Z90.49 Acquired absence of other specified parts of digestive tract; Z68.37 Body mass index [BMI] 37.0-37.9, adult; Z82.49 Family history of ischemic heart disease and other diseases of the circulatory system; Z83.3 Family history of diabetes mellitus; Z79.82 Long term (current) use of aspirin; Z79.02 Long term (current) use of antithrombotics/antiplatelets
CPT/HCPCS: 36415; 71045; 80048; 80053; 80061; 80307; 81001; 82962; 83036; 83735; 83880; 84443; 84484; 85025; 85610; 85730; 87040; 87081; 87426; 87804; 92928; 92941; 92973; 93005; 93306; 93458; 96365; 96375; 99152; 99291; G0378; J1815; J2250; J2405; J3470; J3490; Q9967

== ENCOUNTER 2024-01-29 08:02 | Inpatient (IN) | payer OTHER ==
[~2024-01-29] VITALS: Ht 162.6 cm; Wt 130.0 kg
[~2024-01-29 08:02] MED LIST: AMIO200T33 PO; APIX5TAB PO; ASPI-628 PO; ATOR-507 PO; CLOP75TA28 PO; DIPH1TAB30 PO; EMPA1TAB PO; METO25TA93 PO; NIC21P TOP; SACU1TAB PO; SPIR25TA PO
[2024-01-29] MEDS ORDERED: HEPARIN 1,000 UNITS/ml 1ML VIAL IV ONE (08:15)
--- NOTE | 2024-01-29 08:18 | ED.PDOC ---
HPI Comments 58-year-old female with PMHx ID, HTN, HLD, CHF, DM brought in by EMS presents with a chief complaint of chest pain x 2 days. Patient states that her chest pain is localized to her left chest area, non-radiating, and states that the pain feels similar to her previous ID. Patient was seen here x last week and had a ID and stents placed by Dr. Mcarthur. Patient was given ASA 324mg by EMS en route. Patients EKG was sent to the on-call STEMI doctor. No other symptoms or modifying factors present at this time. Chief Complaint: Chest Pain Time Seen by : 08:02 Primary Care Provider: NONE Reviewed Notes: Nurses Notes, Medications, Allergies Allergies: Coded Allergies: Codeine (Verified Allergy, Intermediate, 07/21/12) Home Meds Active Scripts Nicotine (Nicoderm 21MG/24HR) 1 Patch Ph, 1 PATCH TOP DAILY, #28 PATCH 1 Refill Prov:ELIE GUSMAN MD 01/25/24 Metoprolol Succinate (Metoprolol Succinate Er) 25 Mg Tab, 1 TAB PO DAILY, #30 TAB 5 Refills Prov:ELIE GUSMAN MD 01/25/24 Atorvastatin Calcium (Lipitor) 40 Mg Tab, 1 TAB PO QPM, #90 TAB 1 Refill Prov:ELIE GUSMAN MD 01/25/24 Sacubitril-Valsartan (Entresto 24-26 mg) 1 Tab Tab, 1 TAB PO BID, #60 TAB Prov:ELIE GUSMAN MD 01/25/24 Spironolactone (Aldactone) 25 Mg Tab, 1 TAB PO DAILY, #90 TAB 1 Refill Prov:ELIE GUSMAN MD 01/25/24 Empagliflozin (Jardiance) 10 Mg Tab, 10 MG PO DAILY, #90 TAB Prov:ELIE GUSMAN MD 01/25/24 Amiodarone Hcl (Amiodarone Hcl) 200 Mg Tab, 1 TAB PO DAILY, #90 TAB 1 Refill Prov:ELIE GUSMAN MD 01/25/24 Apixaban Base (ELIQUIS) 5 Mg Tab, 5 MG PO BID, #180 TAB Prov:ELIE GUSMAN MD 01/25/24 Clopidogrel Bisulfate (Plavix) 75 Mg Tab, 1 TAB PO DAILY, #90 TAB 1 Refill Prov:ELIE GUSMAN MD 01/25/24 Aspirin (Aspirin Adult Low Dose) 81 Mg Tab, 81 MG PO DAILY, #90 TAB Prov:ELIE GUSMAN MD 01/25/24 Reported Medications Diphenhydramine-Acetaminophen (Tylenol Pm Extra Strength 500-25 mg) 1 Tab Tab, 1 TAB PO, TAB 01/20/24 Information Source: Patient, Emergency Med Personnel Mode of Arrival: EMS Severity: Moderate Timing: Days Duration: Since onset Prehospital treatment: ASA Location: Chest (L) Radiation: No Radiation Quality: Pressure Onset: At Rest Cardiac Risk Factors: Family History, Hyperlipidemia, HTN, Diabetes PE Risk Factors: None History of: Similar pain in past, ID Past Medical History PAST MEDICAL HISTORY: Denies Surgical History: Denies all surgeries INTERACTIVE MARKETING STRATEGIST History: No Pertinent INTERACTIVE MARKETING STRATEGIST History Family History Family History: Reviewed,noncontributory to illness Social History Smoker: Quit Less Than 1 Year Alcohol: Denies ETOH Use Drugs: Denies Drug Use Lives In: Home Constitutional: denies: chills, diaphoresis, fatigue, fever, malaise, sweats, weakness, others EENTM: denies: blurred vision, double vision, ear bleeding, ear discharge, ear drainage, ear pain, ear ringing, eye pain, eye redness, hearing loss, mouth pain, mouth swelling, nasal discharge, nose bleeding, nose congestion, nose pain, photophobia, tearing, throat pain, throat swelling, voice changes, others Respiratory: reports: shortness of breath; denies: cough, hemoptysis, orthopnea, SOB at rest, SOB with excertion, stridor, wheezing, others Cardiovascular: reports: chest pain; denies: dizzy spells, diaphoresis, Dyspnea on exertion, edema, irregular heart beat, left arm pain, lightheadedness, palpitations, PND, syncope, others Gastrointestinal: denies: abdomen distended, abdominal pain, blood streaked bowels, constipated, diarrhea, dysphagia, difficulty swallowing, hematemesis, melena, nausea, poor appetite, poor fluid intake, rectal bleeding, rectal pain, vomiting, others Genitourinary: denies: abnormal vagina bleeding, burning, dyspareunia, dysuria, flank pain, frequency, hematuria, incontinence, pain, , vagina discharge, urgency, others Neurological: denies: dizziness, fainting, headache, left sided numbness, left sided weakness, numbness, paresthesia, pre-existing deficit, right sided numbness, right sided weakness, seizure, speech problems, tingling, tremors, weakness, others Musculoskeletal: denies: back pain, gout, joint pain, joint swelling, muscle pain, muscle stiffness, neck pain, others Integumetry: denies: bruises, change in color, change in hair/nails, dryness, laceration, lesions, lumps, rash, wounds, others Allergic/Immunocompromised: denies: Difficulty Healing, Frequent Infections, Hives, Itching, others Hematologic/Lymphatic: denies: anemia, blood clots, easy bleeding, easy bruising, swollen glands, others Endocrine: denies: excessive hunger, excessive sweating, excessive thirst, excessive urination, flushing, intolerance to cold, intolerance to heat, unexplained weight gain, unexplained weight loss, others Psychiatric: denies: anxiety, bipolar disorder, depression, hopeless, panic disorder, schizophrenia, sleepless, suicidal, others All Other Systems: Reviewed and Negative Physical Exam General Appearance: Moderate Distress HEENT: Normal ENT Inspection, Pharynx Normal, TMs Normal Neck: Full Range of Motion, Non-Tender, Normal, Normal Inspection Respiratory: Chest Non-Tender, Lungs Clear, No Accessory Muscle Use, No Respiratory Distress, Normal Breath Sounds Cardiovascular: No Edema, No JVD, No Murmur, No Gallop, Normal Peripheral Pulses, Regular Rate/Rhythm Breast Exam: Deferred Gastrointestinal: No Organomegaly, Non Tender, No Pulsatile Mass, Normal Bowel Sounds, Soft Genitalia: Deferred Pelvic: Deferred Rectal: Deferred Extremities: No calf tenderness, Normal capillary refill, Normal inspection, Normal range of motion, Non-tender, No pedal edema Musculoskeletal : Apperance: Normal Neurologic: Alert, 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 Was a procedure done?: No CP Differential Dx Differential Diagnosis: Angina, ID, Pulmonary Embolus Differential Diagnosis: CHF Differential Diagnosis: Pericarditis X-Ray, Labs, Meds, VS Vital Signs Date Time Temp Pulse Resp B/P (MAP) Pulse Ox O2 Delivery O2 Flow Rate FiO2 01/29/24 11:00 92 16 117/69 (85) 98 01/29/24 10:56 91 117/69 01/29/24 10:53 90 01/29/24 10:38 103 01/29/24 10:00 85 16 119/70 (86) 98 01/29/24 10:00 85 16 98 Nasal Cannula* 2 28 01/29/24 09:11 94 01/29/24 09:05 87 16 119/70 01/29/24 08:43 94 19 153/102 (119) 96 01/29/24 08:35 101 28 153/102 01/29/24 08:10 98.4 104 23 146/101 (116) 98 01/29/24 08:04 106 Lab Test 01/29/24 11:16 01/29/24 09:02 01/29/24 08:13 Range/Units Troponin I High Sensitivity 2327 *H 2367 *H 2469 *H </=34 ng/L White Blood Count 8.1 4.4-10.8 10^3/uL Red Blood Count 5.07 4.0-5.20 10^6/uL Hemoglobin 14.9 12.2-16.2 g/dL Hematocrit 44.4 36.0-46.0 % Mean Corpuscular Volume 87.7 80.0-100.0 fL Mean Corpuscular Hemoglobin 29.3 28.0-32.0 pg Mean Corpuscular Hemoglobin Concent 33.5 32.0-36.0 g/dL Red Cell Distribution Width 15.2 H 11.8-14.3 % Platelet Count 489 H 140-450 10^3/uL Mean Platelet Volume 7.9 6.9-10.8 fL Neutrophils (%) (Auto) 54.1 37.0-80.0 % Lymphocytes (%) (Auto) 35.8 10.0-50.0 % Monocytes (%) (Auto) 7.5 0.0-12.0 % Eosinophils (%) (Auto) 1.7 0.0-7.0 % Basophils (%) (Auto) 0.9 0.0-2.0 % Neutrophils # (Auto) 4.4 1.6-8.6 10 ^3/uL Lymphocytes # (Auto) 2.9 0.4-5.4 10 ^3/uL Monocytes # (Auto) 0.6 0-1.3 10 ^3/uL Eosinophils # (Auto) 0.1 0-0.8 10 ^3/uL Basophils # (Auto) 0.1 0-0.2 10 ^3/uL Nucleated Red Blood Cells 0.0 % Prothrombin Time 11.3 9.3-11.8 sec Prothrombin Time INR 1.07 0.9-1.15 Activated Partial Thromboplast Time 24.1 L 24.5-34.5 SEC Sodium Level 133 L 136-145 mmol/L Potassium Level 4.6 3.5-5.1 mmol/L Chloride Level 103 98-107 mmol/L Carbon Dioxide Level 21 20-31 mmol/L Anion Gap 9 5-15 Blood Urea Nitrogen 18 9-23 mg/dL Creatinine 0.80 0.550-1.02 mg/dL Glomerular Filtration Rate Calc 85 >90 mL/min BUN/Creatinine Ratio 22.5 H 10.0-20.0 Serum Glucose 193 H 74-106 mg/dL Calcium Level 10.1 8.7-10.4 mg/dL Magnesium Level 2.0 1.6-2.6 mg/dL Total Bilirubin 0.7 0.2-1.0 mg/dL Aspartate Amino Transferase (AST) 25 13-40 U/L Alanine Aminotransferase (ALT) 30 7-40 U/L Alkaline Phosphatase 315 H 46-116 U/L B-Type Natriuretic Peptide 579.27 0-100 pg/mL Total Protein 7.8 5.7-8.2 g/dL Albumin 4.1 3.2-4.8 g/dL Current Medications Medications (Trade) Dose Ordered Sig/Sonia Route Start Time Stop Time Status Last Admin Morphine Sulfate 2 mg ONCE ONCE IV 01/29/24 08:15 01/29/24 08:16 DC 01/29/24 08:35 Ondansetron HCl (Zofran) 4 mg ONCE ONCE IV 01/29/24 08:15 01/29/24 08:16 DC 01/29/24 08:35 Clopidogrel Bisulfate (Plavix) 75 mg ONCE ONCE PO 01/29/24 08:30 01/29/24 08:31 DC 01/29/24 08:35 Amiodarone HCl 100 ml @ 618 mls/hr ONCE ONCE IV 01/29/24 08:45 01/29/24 08:55 DC 01/29/24 09:04 Amiodarone HCl 250 ml @ 33.333 mls/ hr Q7H30M IV 01/29/24 09:00 01/29/24 12:14 DC 01/29/24 09:20 Empaglifozin (Jardiance) 10 mg DAILY PO 01/29/24 10:00 01/29/24 12:14 DC 01/29/24 10:00 Metoprolol Succinate (Toprol Xl) 25 mg DAILY PO 01/29/24 10:00 01/29/24 12:14 DC 01/29/24 10:56 Spironolactone (Aldactone) 25 mg DAILY PO 01/29/24 10:00 01/29/24 12:14 DC 01/29/24 10:57 Nicotine (Nicoderm 14MG/ 24HR) 1 patch DAILY TD 01/29/24 10:00 01/29/24 12:14 DC 01/29/24 10:56 Sacubitril/ Valsartan (Entresto 24-26 Mg tab) 1 tab BID PO 01/29/24 10:00 01/29/24 12:14 DC 01/29/24 10:56 Apixaban (Eliquis) 5 mg BID PO 01/29/24 10:00 01/29/24 12:14 DC 01/29/24 10:57 Diagnostic Test (Pha) (Accu-Chek Comfort Curve T) 1 strip IQ4HR 01/29/24 12:00 01/29/24 12:14 DC 01/29/24 12:06 Chest X-Ray Impression: No acute cardiopulmonary disease The patient's CBC is within normal limits The chemistry panel is within normal limits The BNP is elevated at 579.27 The 1st troponin level came back is significantly elevated at 2469 The repeat troponins were also significantly elevated. Initially we called a STEMI on this patient after reviewing the EKG The STEMI was then canceled after Cardiology came down and evaluated the patient and stated that the patient did have these changes on his EKG after her stents were placed last week. We reviewed the old EKGs and indeed there are no new changes at this time. Cardiology consult was obtained and they did start the patient on some Plavix. The patient was also been started on amiodarone as well as a beta elsa and some other medications. The patient was being admitted at this time. We discussed the findings with the patient and they are in agreement with the management We considered the patient was critical Care secondary to bedside evaluation and interpretation of labs Also critical Care was involved with reviewing the case with the senior erp consultant The patient was admitted at this time The troponin levels are trending down Images Reviewed?: Images reviewed and evaluated by me Time of 1ST Reevaluation: 08:32 Reevaluation 1ST: Unchanged Time of 2ND Reevaluation: 12:23 Reevaluation 2ND: Improved Patient Education/Counseling: Diagnosis, Treatment, Prognosis Family Education/Counseling: Diagnosis, Treatment, Prognosis Departure 1 Departure Time of Disposition: 12:21 Impression: Primary Impression: Acute myocardial ischemia Additional Impression: Arrhythmia Qualified Codes: I49.9 - Cardiac arrhythmia, unspecified Disposition: ADMITTED INPATIENT Admit to: [facility] Condition: Fair Critical Care Note Critical Care Time?: Yes (1 hr-critical care time only) Stability Stability form required: Yes Unstable for transfer: Telemetry monitoring (Telemetry monitoring required), ED Physician Assesment (Clinical assesment) Heart Score Heart Score: Heart Score Response (Comments) Value History Highly Suspicious 2 EKG Repolarization Disturb 1 Age 45-64 1 Risk Factors >3 or Hx ASHD 2 Troponin >3 x's Normal limit 2 Total 8 I personally scribed for XENIA COURTNEY MD ([email or web address]) on 01/29/24 at 08:18. Electronically submitted by Cristo Olivier ([email or web address]). I personally scribed for XENIA COURTNEY MD ([email or web address]) on 01/29/24 at 09:41. Electronically submitted by Cristo Olivier ([email or web address]). XENIA COURTNEY MD Jan 29, 2024 08:18
--- NOTE | 2024-01-29 08:21 | DVHINCON2 ---
Date Seen: Jan 29, 2024 Referring Physician MD Olga Reason for Consultation Possible STEMI History of Present Illness This is a 58-year-old female who presented to the emergency room with a chief complaint of chest pain for 2 days. At time of assessment the patient denied any further chest pain. She is crying complaining of insomnia and generalized musculoskeletal pain. She underwent a 12 lead electrocardiogram revealing a sinus rhythm with an associated right bundle branch block and left posterior fascicular block at 106 bpm as well as an associated evolved inferior wall ST elevation myocardial infarction with Q-waves. The patient had a recent admission to this facility where she underwent a successful cardiac catheterization and coronary angiogram status post PTCA to the mid RCA and tight proximal LAD including 2 CARROL. Post-procedure and prior to discharge, the patient underwent multiple twelve-lead electrocardiograms revealing the continued evolved inferior wall ST changes with Q-wave association which are similar to those from today. Other significant medical history includes ischemic cardiomyopathy with EF 35-40%, paroxysmal atrial fibrillation status post DC cardioversion, transient supraventricular tachycardia, pti-[id number]-azfaafrzu diabetes mellitus, hypertension, dyslipidemia, cannabinoid use, a smoking history times 25 pack years, and obesity. Past Medical History Past medical history reviewed. No other significant than mentioned above. Past Surgical History C-sections x5 Unilateral oophorectomy Cholecystectomy Family History: Cardiovascular disease G8 MOTHER Diabetes mellitus G8 FATHER Family History Family history reviewed. Social History See HPI. Allergies: Coded Allergies: Codeine (Verified Allergy, Intermediate, 07/21/12) Home Meds Active Scripts Nicotine (Nicoderm 21MG/24HR) 1 Patch Ph, 1 PATCH TOP DAILY, #28 PATCH 1 Refill Prov:ELIE GUSMAN MD 01/25/24 Metoprolol Succinate (Metoprolol Succinate Er) 25 Mg Tab, 1 TAB PO DAILY, #30 TA B 5 Refills Prov:ELIE GUSMAN MD 01/25/24 Atorvastatin Calcium (Lipitor) 40 Mg Tab, 1 TAB PO QPM, #90 TAB 1 Refill Prov:ELIE GUSMAN MD 01/25/24 Sacubitril-Valsartan (Entresto 24-26 mg) 1 Tab Tab, 1 TAB PO BID, #60 TAB Prov:ELIE GUSMAN MD 01/25/24 Spironolactone (Aldactone) 25 Mg Tab, 1 TAB PO DAILY, #90 TAB 1 Refill Prov:ELIE GUSMAN MD 01/25/24 Empagliflozin (Jardiance) 10 Mg Tab, 10 MG PO DAILY, #90 TAB Prov:ELIE GUSMAN MD 01/25/24 Amiodarone Hcl (Amiodarone Hcl) 200 Mg Tab, 1 TAB PO DAILY, #90 TAB 1 Refill Prov:ELIE GUSMAN MD 01/25/24 Apixaban Base (ELIQUIS) 5 Mg Tab, 5 MG PO BID, #180 TAB Prov:ELIE GUSMAN MD 01/25/24 Clopidogrel Bisulfate (Plavix) 75 Mg Tab, 1 TAB PO DAILY, #90 TAB 1 Refill Prov:ELIE GUSMAN MD 01/25/24 Aspirin (Aspirin Adult Low Dose) 81 Mg Tab, 81 MG PO DAILY, #90 TAB Prov:ELIE GUSMAN MD 01/25/24 Reported Medications Diphenhydramine-Acetaminophen (Tylenol Pm Extra Strength 500-25 mg) 1 Tab Tab, 1 TAB PO, TAB 01/20/24 Home Meds Home medications reviewed. Review of Systems Constitutional: Generalized musculoskeletal pain, insomnia Ears, Nose, & Throat: No symptom reported Eyes: No symptom reported Neurological: No symptoms reported Pulmonary/Respiratory: No symptom reported Cardiovascular: Chest pain Gastrointestinal: No symptom reported Genitourinary: No symptom reported Musculoskeletal: No symptom reported Skin: No symptom reported Psychiatric: No symptom reported Endocrine: No symptom reported Hemotologic/Lymphatic: No symptom reported Vital Signs Vital Signs Date Time Temp Pulse Resp B/P (MAP) Pulse Ox O2 Delivery O2 Flow Rate FiO2 01/29/24 08:10 98.4 104 23 146/101 (116) 98 Physical Exam General Appearance: Cooperative. Well developed. Obese. In no acute distress Head Exam: Normal inspection Neck Exam: Normal inspection. Non-tender. Normal alignment Pulmonary/Respiratory: Chest non-tender. Clear bilateral breath sounds Cardiovascular/Chest: Regular rate and rhythm. S1, S2. Evolved ST-elevation inferior wall myocardial infarction. No murmurs. No JVD. Peripheral Pulses: 2+ Radial (R). 2+ Radial (L). 2+ Pedal (R). 2+ Pedal (L) Abdominal Exam: Normal bowel sounds. Soft. Nontender. No hepatospenomegaly. No masses Ankle Exam: Negative ankle edema Lower extremities: Negative lower extremity edema Neuro/Mental Status: A&O x4. Coherent Thoughts/Psych: Normal thought pattern. Anxious, crying Appearance: In no acute distress Skin Exam: Normal inspection. Normal color. Warm. Dry Assessment Evolved inferior wall ST-elevation myocardial infarction s/p PTCA to the RCA/LAD x 2DES on 01/18/2024 Chronic compensated systolic congestive heart failure (HFrEF, LVEF 35-40%) Paroxysmal atrial fibrillation/atrial flutter s/p DC cardioversion on 01/21/2024 Newly diagnosed ischemic cardiomyopathy Tti-homjxwu-lyrfyywfz diabetes mellitus, uncontrolled, HgbA1C >14% Hypertension Dyslipidemia Nicotine dependence Cannabinoid use Obesity Plan/Recommendation (Dr. Gonzales) * Echocardiogram: LVEF 35-40%, global hypokinesia, grade 1 diastolic dysfunction. Continue LifeVest * Completed coronary angiography: Left ventricular end-diastolic pressure 6 mmHg. Dominant RCA with occlusion of the mid segment, 90% stenosis in proximal LAD, 80% stenosis in distal LAD, obtuse marginal with 50-60% stenosis. Completed manual thrombectomy of RCA, placement of stent in mid RCA, placement of stent in proximal LAD. * Antiarrhythmic, initiate amiodarone drip per pharmacy protocol * NOAC therapy, Eliquis BID * [id number] Score 5. HAS-BLED Score 1 * Plavix therapy, statin, and GDMT (beta-elsa, ARNi, MRA and SGLT-2 inhibitors) * Aggressive secondary prevention protocol as warranted * Tight glycemic control, weight loss, Mediterranean diet, exercise as tolerated * Strongly counseled on medical compliance. Follow-up with Cardiology within 1-2 weeks post-discharge Discussed the case with Dr. Gonzales & patient: The patient is status post stent placement to mid RCA and proximal LAD on 01/18/2024. She is chest pain free at this time and with troponin levels trending down as compared to previous admission >25,000 now 2,000s. Doubt in stent-thrombosis and/or restenosis. Presents with improved inferior wall ST changes and associated Q-waves. Continue antiarrhythmic therapy, single-antiplatelet therapy with Plavix, Eliquis BID, statin, and GDMT for CHF as tolerated. Given ischemic cardiomyopathy with an EF 35-40% continue with a LifeVest. Thank you for allowing us to participate in this patient's care. Please call if you have any questions or concerns. Critical care time: 45 min. This medical document was created using an electronic medical record system with voice recognition software and computerized dictation system. Although this document has been carefully reviewed, there might still be some phonetic and typographical errors. Occasional wrong-word or ``sound-alike substitutions may have occurred due to the inherent limitations of voice recognition software. These areas are purely typographical due to imperfections of the software programs and do not reflect any compromise in the patient's medical care. Please read the chart carefully and recognize, using context, where these substitutions have occurred. Plan discussed with: Patient, Other Date of Service: Jan 29, 2024 Billing Provider: SUJATHA GONZALES MD Cardiology Common Codes: 18455-OGQUOYJH CARE 30-74 MIN [facility] Jan 29, 2024 08:21
[2024-01-29] MEDS: CLOPIDOGREL BISULFATE 75 MG TAB PO ONE (08:35)
[2024-01-29] MEDS: ONDANSETRON HCL 4 MG/2 ML VIAL IV ONE (08:35)
[2024-01-29] MEDS: MORPHINE SULFATE 4 MG/ML SYR/VIAL IV ONE (08:35)
[2024-01-29 08:39] LABS: Basophils # (auto) 0.1 10 ^3/uL (0-0.2); Lymphocytes # (auto) 2.9 10 ^3/uL (0.4-5.4); Monocytes # (auto) 0.6 10 ^3/uL (0-1.3)
[2024-01-29 08:41] LABS: Basophils % (auto) 0.9 % (0.0-2.0); Eosinophils # (auto) 0.1 10 ^3/uL (0-0.8); Eosinophils % (auto) 1.7 % (0.0-7.0); Hematocrit 44.4 % (36.0-46.0); Hemoglobin 14.9 g/dL (12.2-16.2); Lymphocytes % (auto) 35.8 % (10.0-50.0); Mean Corpuscular Hemoglobin 29.3 pg (28.0-32.0); Mean Corpuscular Hgb Conc. 33.5 g/dL (32.0-36.0); Mean Corpuscular Volume 87.7 fL (80.0-100.0); Monocytes % (auto) 7.5 % (0.0-12.0); Neutrophils # (auto) 4.4 10 ^3/uL (1.6-8.6); Neutrophils % (auto) 54.1 % (37.0-80.0); Platelet Count (auto) 489 10^3/uL (140-450); Red Blood Cells 5.07 10^6/uL (4.0-5.20); Red Cell Distribution Width 15.2 % (11.8-14.3); White Blood Cell 8.1 10^3/uL (4.4-10.8)
--- NOTE | 2024-01-29 08:41 | DVH ---
EXAM: XY CHEST PORTABLE Indication: CODE STEMI Technique: Single frontal view of the chest was obtained Comparison: XY CHEST PORTABLE on DOS: 01/20/24, XY CHEST PORTABLE on DOS: 01/18/24 FINDINGS: Lines and Tubes: None Lungs: No focal consolidation. Pleura: No effusion. No pneumothorax. Cardiomediastinal contours: Unremarkable Bones: No acute osseous abnormality. IMPRESSION: No acute cardiopulmonary disease.
[2024-01-29] MEDS ORDERED: MORPHINE SULFATE INJ 2 MG/ml SYRG IV PRN ×6 (08:45→12:00)
[2024-01-29 08:57] LABS: Alanine Aminotransferase 30 U/L (7-40); Albumin 4.1 g/dL (3.2-4.8); Alkaline Phosphatase 315 U/L (46-116); Anion Gap 9 (5-15); Aspartate Aminotransferase 25 U/L (13-40); BUN/Creatinine Ratio 22.5 (10.0-20.0); Blood Urea Nitrogen 18 mg/dL (9-23); Calcium 10.1 mg/dL (8.7-10.4); Carbon Dioxide 21 mmol/L (20-31); Chloride 103 mmol/L (98-107); Glucose 193 mg/dL (74-106); INR 1.07 (0.9-1.15); Partial Thromboplastin Time 24.1 SEC (24.5-34.5); Potassium 4.6 mmol/L (3.5-5.1); Prothrombin Time 11.3 sec (9.3-11.8); Sodium 133 mmol/L (136-145)
[2024-01-29 08:58] LABS: Bilirubin, Total 0.7 mg/dL (0.2-1.0); Total Protein 7.8 g/dL (5.7-8.2)
[2024-01-29] MEDS: AMIODARONE BOLUS KIT 100 ML IV ONE (09:04)
--- NOTE | 2024-01-29 09:06 | ECG ---
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
--- NOTE | 2024-01-29 09:14 | ECG ---
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
[2024-01-29] MEDS: AMIODARONE 450mg/250ml AE 250 ML IV SCH ×2 (09:20→15:06)
[2024-01-29 10:00] VITALS: PULSE 85; RESP 16; O2SAT 98
[2024-01-29] MEDS: EMPAGLIFLOZIN 10 MG TAB PO SCH (10:00)
[2024-01-29] MEDS: SACUBITRIL-VALSARTAN 24mg/26mg TAB PO SCH (10:56)
[2024-01-29] MEDS: METOPROLOL SUCCINATE XL 50 MG TAB PO SCH (10:56)
[2024-01-29] MEDS: NICOTINE 14 MG/24HR TOPICAL PATCH TD SCH (10:56)
[2024-01-29] MEDS: APIXABAN 5 MG TAB PO SCH (10:57)
[2024-01-29] MEDS: SPIRONOLACTONE 25 MG TAB PO SCH (10:57)
--- NOTE | 2024-01-29 11:04 | ECG ---
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
[2024-01-29] MEDS ORDERED: DEXTROSE (50%) 50ML SYRG IV PRN (11:45)
[2024-01-29] MEDS ORDERED: LORazepam 0.5 MG TAB PO PRN (11:45)
[2024-01-29] MEDS ORDERED: NITROGLYCERIN 0.4 MG SL TAB SL PRN ×4 (11:45→12:00)
[2024-01-29] MEDS ORDERED: DOCUSATE SOD 100 MG CAP PO PRN (11:45)
[2024-01-29] MEDS ORDERED: ACETAMINOPHEN 325 MG TAB PO PRN (11:45)
[2024-01-29] MEDS ORDERED: TEMAZEPAM 15 MG CAP PO PRN (11:45)
[2024-01-29] MEDS: ACCU-CHEK COMFORT CURVE STRIP VI SCH (12:06)
--- NOTE | 2024-01-29 12:11 | DVHHP2 ---
History of Present Illness Reason for Visit: chest pain History of Present Illness 58-year-old with a history of CHF MD status post stent placement came with evaluation of significant shortness of breath and chest pain for the past few days patient was evaluated in the ED cardiology was consulted with troponins greater than 2000 patient appears to have a acute STEMI which is a evolution of a previous MD that occurred a week and a half to two weeks prior with stent placement patient being evaluated and managed by Cardiology plan is to admit and follow cardiology's recommendations for acute management of a worsening and involving cardiac condition with the patient who is morbidly obese with multiple comorbid conditions including CHF previous MD and continue management for diabetes as well Cardiovascular: CAD, CHF Endocrine: Diabetes Review of Systems Constitutional: Yes: Weakness; No: Fever, Chills, Sweats, Malaise, Other Eyes: No: Pain, Vision change, Conjunctivae inflammation, Eyelid inflammation, Other, Redness ENT: No: Ear pain, Ear discharge, Nose pain, Nose discharge, Nose congestion, Mouth pain, Mouth swelling, Throat pain, Throat swelling, Other Respiratory: Shortness of breath, SOB with excertion; No: Cough, Dry, Wheezing, Hemoptysis, Pleuritic Pain, Sputum, Wheezing, Other Cardiovascular: Chest Pain, Palpitations; No: Orthopnea, Paroxysmal Noc. Dysp rose, Edema, Lt Headedness, Other Gastrointestinal: No: Nausea, Vomiting, Abdominal Pain, Diarrhea, Constipation, Melena, Hematochezia, Other Genitourinary: No Dysuria, No Frequency, No Incontinence, No Hematuria, No Retention, No Other Musculoskeletal: No: other, neck pain, shoulder pain, arm pain, back pain, hand pain, leg pain, foot pain Skin: No: Rash, Lesions, Jaundice, Bruising, Other Neurological: Weakness; No: Numbness, Incoordination, Change in speech, Confusion, Seizures, Other Allergies: Coded Allergies: Codeine (Verified Allergy, Intermediate, 07/21/12) Medications Current Medications Medications Dose Ordered Sig/Sonia Route Start Time Stop Time Status Last Admin Dose Admin Amiodarone HCl 250 ml @ 33.333 mls/ hr Q7H30M IV 01/29/24 09:00 01/29/24 14:59 01/29/24 09:20 33.333 MLS/HR Amiodarone HCl 250 ml @ 16.667 mls/ hr Q15H IV 01/29/24 15:00 Empaglifozin 10 mg DAILY PO 01/29/24 10:00 01/29/24 10:00 10 MG Metoprolol Succinate 25 mg DAILY PO 01/29/24 10:00 01/29/24 10:56 25 MG Spironolactone 25 mg DAILY PO 01/29/24 10:00 01/29/24 10:57 25 MG Nicotine 1 patch DAILY TD 01/29/24 10:00 01/29/24 10:56 1 PATCH Atorvastatin Calcium 40 mg HS PO 01/29/24 22:00 Sacubitril/ Valsartan 1 tab BID PO 01/29/24 10:00 01/29/24 10:56 1 TAB Morphine Sulfate 2 mg Q30M PRN IV 01/29/24 08:45 Apixaban 5 mg BID PO 01/29/24 10:00 01/29/24 10:57 5 MG Clopidogrel Bisulfate 75 mg DAILY PO 01/30/24 10:00 Nitroglycerin 0.4 mg Q5MINP PRN SL 01/29/24 11:45 UNV Morphine Sulfate 2 mg Q30M PRN IV 01/29/24 11:45 UNV Diagnostic Test (Pha) 1 strip IQ4HR 01/29/24 12:00 UNV Insulin Human Regular IQ4HR SC 01/29/24 12:00 UNV Dextrose 50 ml UD PRN IV 01/29/24 11:45 UNV Lorazepam 0.5 mg Q6HP PRN PO 01/29/24 11:45 UNV Al Hydrox/Mg Hydrox/Simethicone 30 ml Q6HP PRN PO 01/29/24 11:45 UNV Docusate Sodium 100 mg BIDPRN PRN PO 01/29/24 11:45 UNV Acetaminophen 650 mg Q6HP PRN PO 01/29/24 11:45 UNV Temazepam 15 mg QHSP PRN PO 01/29/24 11:45 UNV Ondansetron HCl 4 mg Q4HP PRN IV 01/29/24 11:45 UNV Morphine Sulfate 2 mg Q4HPRN PRN IV 01/29/24 11:45 UNV Nitroglycerin 0.4 mg Q5MINP PRN SL 01/29/24 11:45 UNV Morphine Sulfate 2 mg Q30M PRN IV 01/29/24 11:45 UNV Exam Vital Signs Vital Signs Date Time Temp Pulse Resp B/P (MAP) Pulse Ox O2 Delivery O2 Flow Rate FiO2 01/29/24 11:00 92 16 117/69 (85) 98 01/29/24 10:00 Nasal Cannula* 2 28 01/29/24 08:10 98.4 General Appearance: Alert, Oriented X3, moderate distress HEENT: Atraumatic, PERRLA Respiratory: Clear to auscultation, Normal air movement Cardiovascular: Regular rate, Normal S1, Normal S2 Abdominal: Normal bowel sounds, Soft, No tenderness Extremities: No clubbing, No cyanosis Skin: No rashes, No breakdown Neuro: Normal gait, Normal speech Psych/Mental Status: Mood NL Labs/Xrays Labs Test 01/29/24 11:16 01/29/24 08:13 Range/Units Troponin I High Sensitivity 2327 *H </=34 ng/L White Blood Count 8.1 4.4-10.8 10^3/uL Red Blood Count 5.07 4.0-5.20 10^6/uL Hemoglobin 14.9 12.2-16.2 g/dL Hematocrit 44.4 36.0-46.0 % Mean Corpuscular Volume 87.7 80.0-100.0 fL Mean Corpuscular Hemoglobin 29.3 28.0-32.0 pg Mean Corpuscular Hemoglobin Concent 33.5 32.0-36.0 g/dL Red Cell Distribution Width 15.2 H 11.8-14.3 % Platelet Count 489 H 140-450 10^3/uL Mean Platelet Volume 7.9 6.9-10.8 fL Neutrophils (%) (Auto) 54.1 37.0-80.0 % Lymphocytes (%) (Auto) 35.8 10.0-50.0 % Monocytes (%) (Auto) 7.5 0.0-12.0 % Eosinophils (%) (Auto) 1.7 0.0-7.0 % Basophils (%) (Auto) 0.9 0.0-2.0 % Neutrophils # (Auto) 4.4 1.6-8.6 10 ^3/uL Lymphocytes # (Auto) 2.9 0.4-5.4 10 ^3/uL Monocytes # (Auto) 0.6 0-1.3 10 ^3/uL Eosinophils # (Auto) 0.1 0-0.8 10 ^3/uL Basophils # (Auto) 0.1 0-0.2 10 ^3/uL Nucleated Red Blood Cells 0.0 % Prothrombin Time 11.3 9.3-11.8 sec Prothrombin Time INR 1.07 0.9-1.15 Activated Partial Thromboplast Time 24.1 L 24.5-34.5 SEC Sodium Level 133 L 136-145 mmol/L Potassium Level 4.6 3.5-5.1 mmol/L Chloride Level 103 98-107 mmol/L Carbon Dioxide Level 21 20-31 mmol/L Anion Gap 9 5-15 Blood Urea Nitrogen 18 9-23 mg/dL Creatinine 0.80 0.550-1.02 mg/dL Glomerular Filtration Rate Calc 85 >90 mL/min BUN/Creatinine Ratio 22.5 H 10.0-20.0 Serum Glucose 193 H 74-106 mg/dL Calcium Level 10.1 8.7-10.4 mg/dL Magnesium Level 2.0 1.6-2.6 mg/dL Total Bilirubin 0.7 0.2-1.0 mg/dL Aspartate Amino Transferase (AST) 25 13-40 U/L Alanine Aminotransferase (ALT) 30 7-40 U/L Alkaline Phosphatase 315 H 46-116 U/L B-Type Natriuretic Peptide 579.27 0-100 pg/mL Total Protein 7.8 5.7-8.2 g/dL Albumin 4.1 3.2-4.8 g/dL Assessment/Plan Assessment/Plan Admit to [facility] STEMI From previously stented MD Chest Pain Trops> 2k Cardiology following History Stents 01/18/24 Following cardio recommendations Beta blockers anticoagulation ordered CHF history noted and monitor for fluid overload Chronic Issues HTN/DM c/w home meds as recommended insulin sliding scale bianca for both dm management and chf management Plan discussed with: Patient My Orders Orders - BELGICA BRYAN MD Procedure Category Date Status Time * Cardiology Consult CONS 01/29/24 Transmitted 11:44 Nitroglycerin PHA 01/29/24 Logged Sublingual (Ntrostat 11:45 Morphine Sulfate PHA 01/29/24 Logged Injection 11:45 Stat Ekg For Chest [place] 01/29/24 In Process Pain 11:44 Notify Md Of Changes [place] 01/29/24 In Process From Base 11:44 Signals Collector/Analyst For [facility] 01/29/24 In Process 24 Hours 11:44 Emergency Dysrhythmia [facility] 01/29/24 In Process Protocol 11:44 Rhythm Strips Once [facility] 01/29/24 In Process Every Shift 11:44 Oxygen By Nasal RT 01/29/24 Transmitted Cannula 11:44 Glucose Blood PHA 01/29/24 Logged (Accu-Chek Comfort 12:00 Insulin R (Human) PHA 01/29/24 Logged (Insulin R) 12:00 Dextrose 50% Syringe PHA 01/29/24 Logged 11:45 Admit ADMIT 01/29/24 Transmitted 11:44 Code Status CODE 01/29/24 Transmitted 11:44 Vital Signs [facility] 01/29/24 In Process 11:44 Review Orders With [facility] 01/29/24 In Process Adm. 11:44 Consistent DIET 01/29/24 Transmitted Carb(Ccho)Diabetes Lunch Lorazepam Tablet PHA 01/29/24 Logged (Ativan Tablet) 11:45 Alum & Mag PHA 01/29/24 Logged Hydrox-Simethicone 11:45 Docusate Sodium PHA 01/29/24 Logged Capsule (Colace 11:45 Acetaminophen Tablet PHA 01/29/24 Logged (Tylenol Tablet) 11:45 Temazepam (Restoril) PHA 01/29/24 Logged 11:45 Notify Md Of Changes [facility] 01/29/24 In Process From Base 11:44 Advance Directive [facility] 01/29/24 In Process 11:44 Basic Metabolic Panel LAB 01/30/24 Verified 04:00 Complete Blood Count LAB 01/30/24 Verified 04:00 Patient Condition ORDERS 01/29/24 Transmitted 11:44 Allergies [facility] 01/29/24 In Process 11:44 Ondansetron Hcl PHA 01/29/24 Logged (Zofran) 11:45 Morphine Sulfate PHA 01/29/24 Logged Injection 11:45 Nitroglycerin PHA 01/29/24 Logged Sublingual (Ntrostat 11:45 Morphine Sulfate PHA 01/29/24 Logged Injection 11:45 Stat Ekg For Chest [facility] 01/29/24 In Process Pain 11:44 Notify Of Changes [facility] 01/29/24 In Process From Base 11:44 Signals Collector/Analyst For [facility] 01/29/24 In Process 24 Hours 11:44 Emergency Dysrhythmia [facility] 01/29/24 In Process Protocol 11:44 Rhythm Strips Once [place] 01/29/24 In Process Every Shift 11:44 Oxygen By Nasal RT 01/29/24 Transmitted Cannula 11:44 Problem List: (1) CHF (congestive heart failure) (2) Uncontrolled diabetes mellitus (3) STEMI (ST elevation myocardial infarction) Date of Service: Jan 29, 2024 Billing Provider: BELGICA BRYAN MD Common Visit Codes: [id number] INP/OBS CARE (HIGH) BELGICA BRYAN MD Jan 29, 2024 12:11
[2024-01-29] MEDS: InsuLIN REG 1unit/0.01ml Soln (100units/ml) SC SCH (12:14)
[2024-01-29 12:49] LABS: Urine Bacteria None Seen /hpf (None Seen)
[2024-01-29 13:07] LABS: Urine Blood TRACE /uL (Negative); Urine Budding Yeast OCCASIONAL /hpf (None Seen); Urine Clarity Clear (Clear); Urine Color Light-Yellow (Yellow); Urine Mucus FEW (None Seen); Urine Protein, UAD Negative (Negative); Urine Specific Gravity 1.032 (1.001-1.035); Urine Urobilinogen Normal (Negative); Urine WBC <1 /hpf (0 - 5)
[2024-01-29] MEDS: MORPHINE SULFATE INJ 2 MG/ml SYRG IV PRN (18:13)
[2024-01-29 20:30] VITALS: PULSE 87; RESP 14; O2SAT 96
[2024-01-29] MEDS: AMIODARONE 450mg/250ml AE 250 ML IV ONE (20:53)
[2024-01-29] MEDS: ACETAMINOPHEN 325 MG TAB PO PRN (21:50)
[2024-01-29 23:00] VITALS: BP 120/88; PULSE 91; RESP 18; TEMP 98.2; O2SAT 96
[2024-01-30] VITALS (10 sets, daily range): BP systolic 94–133; BP diastolic 49–87; PULSE 71–88; RESP 18–20; TEMP 97.6–98.6; O2SAT 92–98
[2024-01-30] MEDS: TEMAZEPAM 15 MG CAP PO PRN (00:17)
[2024-01-30] MEDS: ATORVASTATIN 20 MG TAB PO SCH (00:17)
[2024-01-30 06:05] LABS: Basophils # (auto) 0.1 10 ^3/uL (0-0.2); Basophils % (auto) 1.2 % (0.0-2.0); Eosinophils # (auto) 0.2 10 ^3/uL (0-0.8); Eosinophils % (auto) 3.3 % (0.0-7.0); Hemoglobin 14.9 g/dL (12.2-16.2); Lymphocytes # (auto) 2.5 10 ^3/uL (0.4-5.4); Lymphocytes % (auto) 38.2 % (10.0-50.0); Mean Corpuscular Hemoglobin 29.9 pg (28.0-32.0); Mean Corpuscular Hgb Conc. 34.5 g/dL (32.0-36.0); Mean Corpuscular Volume 86.7 fL (80.0-100.0); Monocytes # (auto) 0.5 10 ^3/uL (0-1.3); Monocytes % (auto) 7.6 % (0.0-12.0); Neutrophils # (auto) 3.2 10 ^3/uL (1.6-8.6); Neutrophils % (auto) 49.7 % (37.0-80.0); Nucleated Red Blood Cells % 0.1 %; Platelet Count (auto) 424 10^3/uL (140-450); Red Blood Cells 4.96 10^6/uL (4.0-5.20); Red Cell Distribution Width 15.1 % (11.8-14.3); White Blood Cell 6.5 10^3/uL (4.4-10.8)
[2024-01-30 06:17] LABS: Anion Gap 10 (5-15); Carbon Dioxide 23 mmol/L (20-31); Chloride 103 mmol/L (98-107); Potassium 4.1 mmol/L (3.5-5.1); Sodium 136 mmol/L (136-145)
[2024-01-30 06:18] LABS: Calcium 9.9 mg/dL (8.7-10.4)
[2024-01-30 06:23] LABS: BUN/Creatinine Ratio 22.3 (10.0-20.0); Blood Urea Nitrogen 21 mg/dL (9-23); Glucose 168 mg/dL (74-106)
[2024-01-30] MEDS: CLOPIDOGREL BISULFATE 75 MG TAB PO SCH (09:57)
[2024-01-30] MEDS: ONDANSETRON HCL 4 MG/2 ML VIAL IV PRN (10:02)
--- NOTE | 2024-01-30 10:37 | DVHPN2 ---
Consult Progress Note Date Seen: Jan 30, 2024 Subjective Review of Systems: CVS:Normal, RESPIRATORY:Normal, GI:Abnormal, NEURO:Normal Other Systems: C/o abdominal discomfort. No cardiac complains Objective vital signs Vital Sign Date Time Temp Pulse Resp B/P (MAP) Pulse Ox O2 Delivery O2 Flow Rate FiO2 01/30/24 10:01 79 18 119/84 01/30/24 09:00 97.6 95 97.6 01/30/24 00:26 Room Air* 0 21 Total Intake and Output 01/29/24 01/29/24 01/30/24 15:00 23:00 07:00 Intake Total 100 ml 200 ml Output Total 300 ml Balance 100 ml -100 ml medications Current Medications Medications Dose Ordered Sig/Sonia Route Start Time Stop Time Status Last Admin Dose Admin Amiodarone HCl 250 ml @ 16.667 mls/ hr Q15H IV 01/29/24 15:00 01/29/24 20:53 16.667 MLS/HR Empaglifozin 10 mg DAILY PO 01/29/24 10:00 01/30/24 09:57 10 MG Metoprolol Succinate 25 mg DAILY PO 01/29/24 10:00 01/30/24 09:58 25 MG Spironolactone 25 mg DAILY PO 01/29/24 10:00 01/30/24 09:57 25 MG Nicotine 1 patch DAILY TD 01/29/24 10:00 01/29/24 10:56 1 PATCH Atorvastatin Calcium 40 mg HS PO 01/29/24 22:00 01/30/24 00:17 40 MG Sacubitril/ Valsartan 1 tab BID PO 01/29/24 10:00 01/30/24 09:57 1 TAB Apixaban 5 mg BID PO 01/29/24 10:00 01/30/24 09:57 5 MG Clopidogrel Bisulfate 75 mg DAILY PO 01/30/24 10:00 01/30/24 09:57 75 MG Diagnostic Test (Pha) 1 strip IQ4HR 01/29/24 12:00 01/30/24 08:19 1 STRIP Insulin Human Regular IQ4HR SC 01/29/24 12:00 01/30/24 08:23 6 UNITS Dextrose 50 ml UD PRN IV 01/29/24 11:45 Al Hydrox/Mg Hydrox/Simethicone 30 ml Q6HP PRN PO 01/29/24 11:45 Docusate Sodium 100 mg BIDPRN PRN PO 01/29/24 11:45 Ondansetron HCl 4 mg Q4HP PRN IV 01/29/24 11:45 01/30/24 10:02 4 MG Morphine Sulfate 2 mg Q4HPRN PRN IV 01/29/24 12:00 01/30/24 10:01 2 MG Morphine Sulfate 2 mg Q30M PRN IV 01/29/24 12:00 Nitroglycerin 0.4 mg Q5MINP PRN SL 01/29/24 12:00 Lorazepam 0.5 mg Q6HP PRN PO 01/29/24 12:00 Acetaminophen 650 mg Q6HP PRN PO 01/29/24 12:00 01/29/24 21:50 650 MG Temazepam 15 mg QHSP PRN PO 01/29/24 12:00 01/30/24 00:17 15 MG Examination: LUNGS:Normal, CVS:Normal, NEURO:Normal laboratory and microbiology Laboratory Tests 01/30/24 04:54 Test 01/30/24 04:54 Range/Units Serum Glucose 168 H 74-106 mg/dL Problem List/Assessment/Plan Problem List/Assessment/Plan Evolved inferior wall ST-elevation myocardial infarction s/p PTCA to the RCA/LAD x 2DES on 01/18/2024 Paroxysmal atrial fibrillation/atrial flutter s/p DC cardioversion on 01/21/2024 Chronic compensated HFrEF with LVEF of 35-40% Newly diagnosed ischemic cardiomyopathy [id number] diabetes mellitus, uncontrolled, HgbA1C >14% Hypertension Dyslipidemia Nicotine dependence Cannabinoid use Obesity Plan/Recommendation (Dr. Mcarthur) * Echocardiogram revealed: LVEF 35-40%, global hypokinesia, grade 1 diastolic dysfunction. Continue LifeVest * Coronary angiography: Left ventricular end-diastolic pressure 6 mmHg. Dominant RCA with occlusion of the mid segment, 90% stenosis in proximal LAD, 80% stenosis in distal LAD, obtuse marginal with 50-60% stenosis. Completed manual thrombectomy of RCA, placement of stent in mid RCA, placement of stent in proximal LAD. * Antiarrhythmic, transition to amiodarone p.o. * NOAC therapy, Eliquis BID * [id number] Score 5. HAS-BLED Score 1 * Plavix therapy, statin, and GDMT for CHF(beta-elsa, ARNi, MRA and SGLT-2 inhibitors) * Aggressive secondary prevention protocol as warranted * Tight glycemic control, weight loss, Mediterranean diet, exercise as tolerated * Strongly counseled on medical compliance. Follow-up with Cardiology within 1-2 weeks post-discharge Discussed the case with Dr. Mcarthur & patient: The patient is status post stent placement to the mid RCA and proximal LAD completed on 01/18/2024. Continue single-antiplatelet therapy with Plavix, Eliquis BID, statin, GDMT for CHF as tolerated, and antiarrhythmic. Continue with a LifeVest given an ischemic cardiomyopathy with an EF 35-40% (this can be fitted at home). Strongly recommend tight glycemic control, the patient was previously discharge home without diabetic management and presents with a HgbA1C >14%. Follow-up with primary cloth presser within 1-2 weeks post-discharge. There is no further cardiac work-up indicated at this time. Kindly call with any questions or concerns. Thank you for allowing us to participate in this patient's care. Critical care time: 45 min. This medical document was created using an electronic medical record system with voice recognition software and computerized dictation system. Although this document has been carefully reviewed, there might still be some phonetic and typographical errors. Occasional wrong-word or ``sound-alike substitutions may have occurred due to the inherent limitations of voice recognition software. These areas are purely typographical due to imperfections of the software programs and do not reflect any compromise in the patient's medical care. Please read the chart carefully and recognize, using context, where these substitutions have occurred. Plan discussed with: Patient, Other Date of Service: Jan 30, 2024 Billing Provider: SUJATHA MCARTHUR MD Cardiology Common Codes: [id number] INP/OBS CARE(Mod) [facility] Jan 30, 2024 10:36
[2024-01-30] MEDS: AMIODARONE HCL 200 MG TAB PO ONE (11:40)
--- NOTE | 2024-01-30 13:06 | ECG ---
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
[2024-01-30] MEDS: MAALOX PLUS or MAALOX 30 ML PO PRN (14:10)
--- NOTE | 2024-01-30 15:17 | DVHPN2 ---
Assessment/Plan Assessment/Plan progress note Subjective 58-year-old female with prior STEMI status post CARROL admitted for NSTEMI. Patient evaluated by Cardiology with low concern of stent rethrombosis Objective Physical exam Alert, oriented x3 PERRLA No JVD Clear breath sounds bilaterally S1-S2 regular rate and rhythm no murmur Abdomen soft nontender, no organomegaly Moving all four extremities No lower extremity edema Lab Troponin elevation High BNP Hyperglycemia EKG Evolution of prior STEMI seen in previous EKG too Assessment and plan Noncardiac chest pain Likely viral syndrome Diabetes Heart failure with reduced ejection fraction last echo 35% Hypertension CAD status post CARROL x2 RCA/LAD AFib/a flutter on Eliquis History of the cardioversion Continue with Plavix and Eliquis Cardio consult appreciated Basal bolus insulin Fingerstick a.c. HS Supportive treatment for viral syndrome Tylenol [id number] Resume home medication Diet cardiac DVT prophylaxis on Eliquis Plan discussed with: Patient Date of Service: Jan 30, 2024 Billing Provider: JAYJAY GOODEN MD Common Visit Codes: [id number] INP/OBS CARE(HIGH) JAYJAY GOODEN MD Jan 30, 2024 15:17
[2024-01-30] MEDS: MORPHINE SULFATE INJ 2 MG/ml SYRG IV PRN (21:24)
[2024-01-30] MEDS: AMIODARONE HCL 200 MG TAB PO SCH (21:30)
[2024-01-31] MEDS: INSULIN LANTUS (GLARGINE) 1 /0.01ml (100units/ml) SC SCH (00:24)
[2024-01-31 01:00] VITALS: BP 119/86; PULSE 89; RESP 19; TEMP 98; O2SAT 98
[2024-01-31 05:00] VITALS: BP 105/76; PULSE 91; RESP 19; TEMP 97.9; O2SAT 94
[2024-01-31] MEDS: LORazepam 0.5 MG TAB PO PRN (05:53)
[2024-01-31 08:00] VITALS: PULSE 86; PULSE 98; RESP 18; O2SAT 96
[2024-01-31 08:26] VITALS: BP 113/76; PULSE 85; RESP 20; TEMP 98.2; O2SAT 96
[2024-01-31] MEDS ORDERED: BLOO1KIT60 XX (12:25)
[2024-01-31] MEDS ORDERED: INSUINJ37 SC (12:25)
[2024-01-31 13:00] VITALS: BP 101/79; PULSE 89; RESP 19; TEMP 98.3; O2SAT 95
[2024-01-31 14:42] VITALS: BP 113/76; PULSE 86; TEMP 36.8
--- NOTE | 2024-01-31 19:44 | DVHDS2 ---
Discharge Summary Date of Admission Jan 29, 2024 at 11:44 Date of Discharge: Jan 31, 2024 Labs/Diagnostic Data: Laboratory Results Test 01/31/24 15:46 01/30/24 04:54 01/29/24 12:40 01/29/24 11:16 POC Glucose 228 mg/dl (70-106) White Blood Count 6.5 10^3/uL (4.4-10.8) Red Blood Count 4.96 10^6/uL (4.0-5.20) Hemoglobin 14.9 g/dL (12.2-16.2) Hematocrit 43.0 % (36.0-46.0) Mean Corpuscular Volume 86.7 fL (80.0-100.0) Mean Corpuscular Hemoglobin 29.9 pg (28.0-32.0) Mean Corpuscular Hemoglobin Concent 34.5 g/dL (32.0-36.0) Red Cell Distribution Width 15.1 % (11.8-14.3) Platelet Count 424 10^3/uL (140-450) Mean Platelet Volume 8.0 fL (6.9-10.8) Neutrophils (%) (Auto) 49.7 % (37.0-80.0) Lymphocytes (%) (Auto) 38.2 % (10.0-50.0) Monocytes (%) (Auto) 7.6 % (0.0-12.0) Eosinophils (%) (Auto) 3.3 % (0.0-7.0) Basophils (%) (Auto) 1.2 % (0.0-2.0) Neutrophils # (Auto) 3.2 10 ^3/uL (1.6-8.6) Lymphocytes # (Auto) 2.5 10 ^3/uL (0.4-5.4) Monocytes # (Auto) 0.5 10 ^3/uL (0-1.3) Eosinophils # (Auto) 0.2 10 ^3/uL (0-0.8) Basophils # (Auto) 0.1 10 ^3/uL (0-0.2) Nucleated Red Blood Cells 0.1 % Sodium Level 136 mmol/L (136-145) Potassium Level 4.1 mmol/L (3.5-5.1) Chloride Level 103 mmol/L (98-107) Carbon Dioxide Level 23 mmol/L (20-31) Anion Gap 10 (5-15) Blood Urea Nitrogen 21 mg/dL (9-23) Creatinine 0.94 mg/dL (0.550-1.02) Glomerular Filtration Rate Calc 70 mL/min (>90) BUN/Creatinine Ratio 22.3 (10.0-20.0) Serum Glucose 168 mg/dL (74-106) Calcium Level 9.9 mg/dL (8.7-10.4) Urine Color Light-yellow (Yellow) Urine Clarity Clear (Clear) Urine pH 5.0 (5.0-9.0) Urine Specific [place] 1.032 (1.001-1.035) Urine Protein Negative (Negative) Urine Ketones Negative (Negative) Urine Blood Trace /uL (Negative) Urine Nitrite Negative (Negative) Urine Bilirubin Negative (Negative) Urine Urobilinogen Normal mg/dL (Negative) Urine Leukocyte Esterase Negative /uL (Negative) Urine RBC 2 /hpf (0 - 4) Urine WBC <1 /hpf (0 - 5) Urine Squamous Epithelial Cells Few /hpf (<5) Urine Bacteria None seen /hpf (None Seen) Urine Mucus Few (None Seen) Urine Yeast (Budding) Occasional /hpf (None Urine Glucose 4+ mg/dL (Normal) Troponin I High Sensitivity 2327 ng/L (</=34) Test 01/29/24 08:13 Prothrombin Time 11.3 sec (9.3-11.8) Prothrombin Time INR 1.07 (0.9-1.15) Activated Partial Thromboplast Time 24.1 SEC (24.5-34.5) Magnesium Level 2.0 mg/dL (1.6-2.6) Total Bilirubin 0.7 mg/dL (0.2-1.0) Aspartate Amino Transferase (AST) 25 U/L (13-40) Alanine Aminotransferase (ALT) 30 U/L (7-40) Alkaline Phosphatase 315 U/L (46-116) B-Type Natriuretic Peptide 579.27 pg/mL (0-100) Total Protein 7.8 g/dL (5.7-8.2) Albumin 4.1 g/dL (3.2-4.8) Other Laboratory Tests 01/30/24 04:54 Brief Hx & Hospital Course: 58 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 Likely symptoms from viral syndrome. Also had hyperglycemia, she did not receive insulin at home. Resent insulin. Condition at Discharge: Good Final Diagnosis/Problems List non cardiac chest pain hyperglycemia Discharge Disposition: Home Discharge Instruct/Medications Diet: Cardiac 2g Na,low cholest Activity: No Restrictions, As Tolerated Follow Up/Referral: cardiology PCP Medications: lantus diabetic DME 39 Discharge Statement: "Patient was advised to return to the ER or call 911 if any headaches, dizziness, shortness of breath, chest pain, abdominal pain, bleeding, fevers, or worsening of medical condition. Patient was counseled about treatment plan, medications, possible side effects, patientverbalized understanding. All questions were answered to the best of my ability. This discharge took greater then 30 minutes in planning, reviewing documentation, counseling the patient, and discussing with other team members." ASSESSMENT ASSESSMENT Assessment Noncardiac chest pain Likely viral syndrome Diabetes Heart failure with reduced ejection fraction last echo 35% Hypertension CAD status post CARROL x2 RCA/LAD AFib/a flutter on Eliquis History of the cardioversion Date of Service: Jan 31, 2024 Billing Provider: JAYJAY GOODEN MD Common Visit Codes: [id number]/OBS DISCH DAY >30min JAYJAY GOODEN MD Jan 31, 2024 19:44
== END 2024-01-31 16:20 | disposition home or self-care (01) | DRG 723 ==
LOC: ER 08:02 → EDBD 08:02 → TELE 11:44 → ER 11:57 → TELE-CENTR 22:23
PROVIDERS: ADMIT Hospitalist; ATTEND Student in an Organized Health Care Education/Training Program
DX: B34.9 Viral infection, unspecified (principal); I11.0 Hypertensive heart disease with heart failure; I48.92 Unspecified atrial flutter; I50.22 Chronic systolic (congestive) heart failure; I25.10 Atherosclerotic heart disease of native coronary artery without angina pectoris; E11.65 Type 2 diabetes mellitus with hyperglycemia; I45.2 Bifascicular block; I25.5 Ischemic cardiomyopathy; I48.0 Paroxysmal atrial fibrillation; F17.210 Nicotine dependence, cigarettes, uncomplicated; E78.5 Hyperlipidemia, unspecified; G47.00 Insomnia, unspecified; E66.01 Morbid (severe) obesity due to excess calories; I25.2 Old myocardial infarction; Z95.5 Presence of coronary angioplasty implant and graft; Z88.5 Allergy status to narcotic agent; Z90.721 Acquired absence of ovaries, unilateral; Z83.3 Family history of diabetes mellitus; Z82.49 Family history of ischemic heart disease and other diseases of the circulatory system; Z79.84 Long term (current) use of oral hypoglycemic drugs; Z79.02 Long term (current) use of antithrombotics/antiplatelets; Z90.49 Acquired absence of other specified parts of digestive tract; Z68.42 Body mass index [BMI] 45.0-49.9, adult
CPT/HCPCS: 36415; 71045; 80048; 80053; 81001; 82962; 83735; 83880; 84484; 85025; 85610; 85730; 87081; 93005; 99291; G0378; J1815; J2405

== ENCOUNTER 2024-02-15 05:03 | Inpatient (IN) | payer OTHER ==
[~2024-02-15] VITALS: Ht 162.6 cm; Wt 95.2 kg
[2024-02-15] VITALS (17 sets, daily range): BP systolic 94–118; BP diastolic 65–80; PULSE 78–127; RESP 10–27; TEMP 97.6–99; O2SAT 91–99
[~2024-02-15 05:03] MED LIST changes: +BLOO1KIT60 XX; +INSUINJ37 SC
--- NOTE | 2024-02-15 05:24 | ED.PDOC ---
HPI Comments A 58 year old female brought in by EMS presents to the ED with a chief complaint of chest pain onset yesterday around 20:00. Per EMS, patient was hospitalized at this hospital about 2 weeks ago due to AR, she had 2 cardiac stents placed. Patient has not been taking prescribed medication for the past week. Upon EMS arrival, BP was 084/131, BS 231, HR 137, O2 sat 94% on RA. Patient states she is also experiencing dizziness, headache and shortness of breath. She has a past m edical history of CHF, DM, HTN, AR. Denies nausea, vomiting, diarrhea, fever, abdominal pain. No other symptoms or modifying factors present at this time. Chief Complaint: Chest Pain Time Seen by MD: 05:14 Primary Care Provider: NONE Reviewed Notes: Medications, Allergies Allergies: Coded Allergies: Codeine (Verified Allergy, Intermediate, 07/21/12) Home Meds Active Scripts Blood Glucose Monitoring Suppl (D-Care Glucometer Kit/Glu W/Device) 1 Kit Kit, KIT XX ACHS, #1 Prov:JAYJAY GOODEN MD 01/31/24 Insulin Glargine (Lantus Solostar) 100 Unit/Ml Inj, 20 UNIT SC HS for 30 Days, #3 KIT 1 Refill Prov:JAYJAY GOODEN MD 01/31/24 Nicotine (Nicoderm 21MG/24HR) 1 Patch Ph, 1 PATCH TOP DAILY, #28 PATCH 1 Refill Prov:ELIE GUSMAN MD 01/25/24 Metoprolol Succinate (Metoprolol Succinate Er) 25 Mg Tab, 1 TAB PO DAILY, #30 TAB 5 Refills Prov:ELIE GUSMAN MD 01/25/24 Atorvastatin Calcium (Lipitor) 40 Mg Tab, 1 TAB PO QPM, #90 TAB 1 Refill Prov:ELIE GUSMAN MD 01/25/24 Sacubitril-Valsartan (Entresto 24-26 mg) 1 Tab Tab, 1 TAB PO BID, #60 TAB Prov:ELIE GUSMAN MD 01/25/24 Spironolactone (Aldactone) 25 Mg Tab, 1 TAB PO DAILY, #90 TAB 1 Refill Prov:ELIE GUSMAN MD 01/25/24 Empagliflozin (Jardiance) 10 Mg Tab, 10 MG PO DAILY, #90 TAB Prov:ELIE GUSMAN MD 01/25/24 Amiodarone Hcl (Amiodarone Hcl) 200 Mg Tab, 1 TAB PO DAILY, #90 TAB 1 Refill Prov:ELIE GUSMAN MD 01/25/24 Apixaban Base (ELIQUIS) 5 Mg Tab, 5 MG PO BID, #180 TAB Prov:ELIE GUSMAN MD 01/25/24 Clopidogrel Bisulfate (Plavix) 75 Mg Tab, 1 TAB PO DAILY, #90 TAB 1 Refill Prov:ELIE GUSMAN MD 01/25/24 Aspirin (Aspirin Adult Low Dose) 81 Mg Tab, 81 MG PO DAILY, #90 TAB Prov:ELIE GUSMAN MD 01/25/24 Reported Medications Diphenhydramine-Acetaminophen (Tylenol Pm Extra Strength 500-25 mg) 1 Tab Tab, 1 TAB PO, TAB 01/20/24 Mode of Arrival: EMS Vital Signs Vital Signs Date Time Temp Pulse Resp B/P (MAP) Pulse Ox O2 Delivery O2 Flow Rate FiO2 02/15/24 06:02 125 39 156/110 02/15/24 05:12 98.3 94 Physical Exam General: Awake, alert and oriented. No acute distress. Skin: Skin in warm, dry and intact. Appropriate color for ethnicity. Nailbeds pink with no cyanosis. HEENT: The head is normocephalic and atraumatic. Conjunctivae are clear without exudates or hemorrhage. Sclera is non-icteric. EOM are intact. No signs of n ystagmus. Eyelids are normal in appearance without swelling or lesions. Oral mucosa is pink and moist Neck: The neck is supple with normal range of motion. No JVD. Cardiac: Heart rate and rhythm are normal. No murmurs, gallops, or rubs are auscultated. Respiratory: No signs of respiratory distress. Lung sounds are clear in all lobes bilaterally without rales, ronchi, or wheezes. Abdominal: Abdomen is soft, non-tender without distention. Bowel sounds are present and normoactive in all four quadrants. Extremities: Upper and lower extremities are atraumatic in appearance without deformity or edema. Neurological: The patient is awake, alert and oriented to person, place, and time with normal speech. Speech is clear. There is no facial asymmetry. Psychiatric: Appropriate mood and affect. Good judgement and insight. No visual or auditory hallucinations. Review of Systems: As stated in HPI Past Medical History PAST MEDICAL HISTORY: CHF, DM, HTN, AR, Denies Surgical History: Denies all surgeries RECEPTIONIST SECRETARY History: No Pertinent RECEPTIONIST SECRETARY History Family History Family History: Reviewed,noncontributory to illness Social History Smoker: Quit Less Than 1 Year Alcohol: Denies ETOH Use Drugs: Denies Drug Use Lives In: Home Was a procedure done? Was a procedure done?: No CP Differential Dx Differential Diagnosis: Other (Differential diagnoses considered include acute ischemic coronary syndrome, aortic dissection, cardiac tamponade, mediastinitis, pulmonary embolus, pneumothorax, tension pneumothorax, esophageal rupture, coronary artery vasospasm, myocarditis, pericarditis, pneumonia, pulmonary edema, esophageal tear, pancreatitis, aortic stenosis, dilated cardiomyopathy, hypertrophic cardiomyopathy, mitral valve prolapse, malignancy, pleuritis, pneumomediastinum, primary pulmonary hypertension, cholecystitis, esophageal spasm, esophagus, gastritis, GERD, peptic ulcer disease, costochondritis, fibromyalgia, rib fracture, herpes zoster, radicular syndromes, thoracic outlet syndrome, somatization.) X-Ray, Labs, Meds, VS Vital Signs Date Time Temp Pulse Resp B/P (MAP) Pulse Ox O2 Delivery O2 Flow Rate FiO2 02/15/24 06:02 125 39 156/110 02/15/24 05:12 98.3 138 30 175/126 (142) 94 02/15/24 05:11 136 Lab Test 02/15/24 05:45 Range/Units White Blood Count Pending Red Blood Count Pending Hemoglobin Pending Hematocrit Pending Mean Corpuscular Volume Pending Mean Corpuscular Hemoglobin Pending Mean Corpuscular Hemoglobin Concent Pending Red Cell Distribution Width Pending Platelet Count Pending Mean Platelet Volume Pending Neutrophils (%) (Auto) Pending Lymphocytes (%) (Auto) Pending Monocytes (%) (Auto) Pending Basophils (%) (Auto) Pending Neutrophils # (Auto) Pending Lymphocytes # (Auto) Pending Monocytes # (Auto) Pending Sodium Level Pending Potassium Level Pending Chloride Level Pending Carbon Dioxide Level Pending Anion Gap Pending Blood Urea Nitrogen Pending Creatinine Pending Glomerular Filtration Rate Calc Pending BUN/Creatinine Ratio Pending Serum Glucose Pending Calcium Level Pending Total Bilirubin Pending Aspartate Amino Transferase (AST) Pending Alanine Aminotransferase (ALT) Pending Alkaline Phosphatase Pending Troponin I High Sensitivity Pending B-Type Natriuretic Peptide Pending Total Protein Pending Albumin Pending Current Medications Medications (Trade) Dose Ordered Sig/Sonia Route Start Time Stop Time Status Last Admin Morphine Sulfate 2 mg ONCE ONCE IV 02/15/24 05:45 02/15/24 05:46 DC 02/15/24 06:02 Ondansetron HCl (Zofran) 4 mg ONCE ONCE IV 02/15/24 05:45 02/15/24 05:46 DC 02/15/24 06:00 Time of 1ST Reevaluation: 05:44 Reevaluation 1ST: Unchanged Patient Education/Counseling: Diagnosis, Treatment, Prognosis Family Education/Counseling: No Family Present Departure 1 Departure Time of Disposition: 06:08 Impression: Primary Impression: Chest pain Disposition: 30 STILL A PATIENT Condition: Stable Comments 58-year-old female with chest pain after recent angioplasty. Case was discussed with , cardiologists reviewed EKG this interpretation is No STEMI. Sign out to oncoming provider pending lab, imaging results. Critical Care Note Critical Care Time?: No Stability Stability form required: No Heart Score Heart Score: Heart Score Response (Comments) Value History Moderate Suspicious 1 EKG Repolarization Disturb 1 Age 45-64 1 Risk Factors >3 or Hx ASHD 2 Troponin N/A 0 Total 5 I personally scribed for TIFFANIE HERNANDEZ MD ([email or web address]) on 02/15/24 at 05:24. Electronically submitted by January Brumfield ([email or web address]). TIFFANIE HERNANDEZ MD Feb 15, 2024 05:24
[2024-02-15] MEDS ORDERED: ASPirin 81 mg TAB PO ONE (05:30)
[2024-02-15] MEDS: ONDANSETRON HCL 4 MG/2 ML VIAL IV ONE (06:00)
[2024-02-15] MEDS: MORPHINE SULFATE INJ 2 MG/ml SYRG IV ONE (06:02)
[2024-02-15 06:15] LABS: Basophils # (auto) 0 10 ^3/uL (0-0.2); Basophils % (auto) 0.5 % (0.0-2.0); Eosinophils # (auto) 0.1 10 ^3/uL (0-0.8); Eosinophils % (auto) 1.2 % (0.0-7.0); Hematocrit 41.6 % (36.0-46.0); Hemoglobin 13.8 g/dL (12.2-16.2); Lymphocytes # (auto) 2.4 10 ^3/uL (0.4-5.4); Lymphocytes % (auto) 28.5 % (10.0-50.0); Mean Corpuscular Hemoglobin 28.8 pg (28.0-32.0); Mean Corpuscular Hgb Conc. 33.2 g/dL (32.0-36.0); Mean Corpuscular Volume 86.8 fL (80.0-100.0); Monocytes # (auto) 0.3 10 ^3/uL (0-1.3); Monocytes % (auto) 3.6 % (0.0-12.0); Neutrophils # (auto) 5.5 10 ^3/uL (1.6-8.6); Neutrophils % (auto) 66.2 % (37.0-80.0); Nucleated Red Blood Cells % 0.1 %; Platelet Count (auto) 280 10^3/uL (140-450); White Blood Cell 8.3 10^3/uL (4.4-10.8)
--- NOTE | 2024-02-15 06:19 | DVH ---
CHEST RADIOGRAPH Indication: cp Technique: Single frontal view of the chest was obtained Comparison: XY CHEST PORTABLE on DOS: 01/29/24 FINDINGS: Lines and Tubes: None Lungs: Bilateral interstitial prominence noted. Pleura: No effusion. No pneumothorax. Cardiomediastinal contours: Cardiomegaly. Bones: No acute osseous abnormality. IMPRESSION: 1. Pulmonary vascular congestion.
[2024-02-15] MEDS: ACETAMINOPHEN 500 MG TAB or CAP PO ONE (06:39)
[2024-02-15] MEDS: ASPirin 325 MG TAB PO ONE (06:48)
[2024-02-15] MEDS: ENOXAPARIN SOD 100 MG/1 ML SYRINGE SC ONE (06:52)
[2024-02-15 06:58] LABS: Alanine Aminotransferase 23 U/L (7-40); Albumin 4.1 g/dL (3.2-4.8); Anion Gap 10 (5-15); Aspartate Aminotransferase 21 U/L (13-40); BUN/Creatinine Ratio 16.2 (10.0-20.0); Blood Urea Nitrogen 16 mg/dL (9-23); Carbon Dioxide 20 mmol/L (20-31); Chloride 105 mmol/L (98-107); Potassium 4.2 mmol/L (3.5-5.1); Total Protein 7.2 g/dL (5.7-8.2)
[2024-02-15 06:59] LABS: Alkaline Phosphatase 136 U/L (46-116); Bilirubin, Total 2.2 mg/dL (0.2-1.0); Glucose 240 mg/dL (74-106); Sodium 135 mmol/L (136-145)
[2024-02-15] MEDS ORDERED: DOCUSATE SOD 100 MG CAP PO PRN (09:00)
[2024-02-15] MEDS ORDERED: ONDANSETRON HCL 4 MG/2 ML VIAL IV PRN (09:00)
[2024-02-15] MEDS ORDERED: ACETAMINOPHEN 325 MG TAB PO PRN (09:00)
[2024-02-15] MEDS ORDERED: NITROGLYCERIN 0.4 MG SL TAB SL PRN (09:00)
[2024-02-15] MEDS ORDERED: DEXTROSE (50%) 50ML SYRG IV PRN (09:45)
--- NOTE | 2024-02-15 09:52 | DVHINCON2 ---
Date Seen: Feb 15, 2024 Referring Physician CAROLINE Dave Reason for Consultation Elevated troponin History of Present Illness This is a 58-year-old female patient who presents to the emergency room with chief complaint of chest pain that began two days ago. She describes chest pain as unprovoked, sharp in nature, intermittent, left-sided and without radiation. Associated symptoms include dizziness and shortness of breath. The patient comes to the emergency room for further evaluation. Cardiology has been consulted this time for further evaluation. Initial twelve lead electrocardiogram reveals sinus tachycardia with right bundle branch block and with notable Q-waves. Initial troponin level of 106ng/L with flat trend thereafter. Significant past medical history includes coronary artery disease status post PTCA x2 CARROL, paroxysmal atrial fibrillation status post DC cardioversion, congestive heart failure, [id number] diabetes mellitus, hypertension, dyslipidemia, nicotine dependence, and morbid obesity. Of note, the patient was recently seen at this facility on January 18, 2024 as a STEMI patient. At that time, the patient was emergently taken to the crime laboratory analyst where she underwent a coronary angiogram status post PTCA x2 CARROL (to mid RCA and proximal LAD). The patient admits that she has not been taking any of her prescribed medication including her antiplatelet therapy. She has also not followed up with any protection agent in the outpatient setting. Past Medical History Past medical history reviewed. No other significant than mentioned above. Past Surgical History Cholecystectomy Unilateral oophorectomy x5 Family History: Cardiovascular disease G8 MOTHER, Onset:40's - 50 Diabetes mellitus G8 FATHER, Onset:50's - 60 Family History Family history reviewed. Social History Patient has a 25 pack-year history, quit smoking approximately one year ago Denies any illicit drug use Denies any alcohol use Allergies: Coded Allergies: Codeine (Verified Allergy, Intermediate, 07/21/12) Home Meds Active Scripts Blood Glucose Monitoring Suppl (D-Care Glucometer Kit/Glu W/Device) 1 Kit Kit, KIT XX ACHS, #1 Prov:JAYJAY GOODEN MD 01/31/24 Insulin Glargine (Lantus Solostar) 100 Unit/Ml Inj, 20 UNIT SC HS for 30 Days, #3 KIT 1 Refill Prov:JAYJAY GOODEN MD 01/31/24 Nicotine (Nicoderm 21MG/24HR) 1 Patch Ph, 1 PATCH TOP DAILY, #28 PATCH 1 Refill Prov:ELIE GUSMAN MD 01/25/24 Metoprolol Succinate (Metoprolol Succinate Er) 25 Mg Tab, 1 TAB PO DAILY, #30 TAB 5 Refills Prov:ELIE GUSMAN MD 01/25/24 Atorvastatin Calcium (Lipitor) 40 Mg Tab, 1 TAB PO QPM, #90 TAB 1 Refill Prov:ELIE GUSMAN MD 01/25/24 Sacubitril-Valsartan (Entresto 24-26 mg) 1 Tab Tab, 1 TAB PO BID, #60 TAB Prov:ELIE GUSMAN MD 01/25/24 Spironolactone (Aldactone) 25 Mg Tab, 1 TAB PO DAILY, #90 TAB 1 Refill Prov:ELIE GUSMAN MD 01/25/24 Empagliflozin (Jardiance) 10 Mg Tab, 10 MG PO DAILY, #90 TAB Prov:ELIE GUSMAN MD 01/25/24 Amiodarone Hcl (Amiodarone Hcl) 200 Mg Tab, 1 TAB PO DAILY, #90 TAB 1 Refill Prov:ELIE GUSMAN MD 01/25/24 Apixaban Base (ELIQUIS) 5 Mg Tab, 5 MG PO BID, #180 TAB Prov:ELIE GUSMAN MD 01/25/24 Clopidogrel Bisulfate (Plavix) 75 Mg Tab, 1 TAB PO DAILY, #90 TAB 1 Refill Prov:ELIE GUSMAN MD 01/25/24 Aspirin (Aspirin Adult Low Dose) 81 Mg Tab, 81 MG PO DAILY, #90 TAB Prov:ELIE GUSMAN MD 01/25/24 Reported Medications Diphenhydramine-Acetaminophen (Tylenol Pm Extra Strength 500-25 mg) 1 Tab Tab, 1 TAB PO, TAB 01/20/24 Home Meds Home medications reviewed. Current Medications Current Medications Medications (Trade) Dose Ordered Sig/Sonia Route PRN Reason Start Time Stop Time Status Last Admin Acetaminophen/ Hydrocodone Bitart ([place] 5/325MG Tab) 1 tab Q4HP PRN PO MODERATE PAIN (4-6 PAIN SCALE) 02/15/24 09:00 Ondansetron HCl (Zofran) 4 mg Q4HP PRN IV NAUSEA / VOMITING 02/15/24 09:00 Docusate Sodium (Colace Capsule) 100 mg BIDPRN PRN PO FOR CONSTIPATION 02/15/24 09:00 Acetaminophen (Tylenol Tablet) 650 mg Q6HP PRN PO PAIN SCALE 1-3 OR TEMP>100.4 02/15/24 09:00 Nitroglycerin (Ntrostat Sublingual) 0.4 mg Q5MINP PRN SL FOR CHEST PAIN 02/15/24 09:00 Morphine Sulfate 2 mg Q30M PRN IV FOR CHEST PAIN 02/15/24 09:00 Amiodarone HCl (Cordarone Tablet) 200 mg DAILY PO 02/15/24 10:00 Apixaban (Eliquis) 5 mg BID PO 02/15/24 10:00 Aspirin (Ecotrin Enteric Coated Tablet) 81 mg DAILY PO 02/15/24 10:00 UNV Clopidogrel Bisulfate (Plavix) 75 mg DAILY PO 02/15/24 10:00 UNV Empaglifozin (Jardiance) 10 mg DAILY PO 02/15/24 10:00 UNV Sacubitril/ Valsartan (Entresto 24-26 Mg tab) 1 tab BID PO 02/15/24 10:00 UNV Spironolactone (Aldactone) 25 mg DAILY PO 02/15/24 10:00 Patient Own Medication 1 tab QPM PO 02/15/24 18:00 UNV Metoprolol Succinate (Toprol Xl) 25 mg DAILY PO 02/15/24 10:00 Diagnostic Test (Pha) (Accu-Chek Comfort Curve T) 1 strip Q6HR 02/15/24 12:00 Insulin Human Regular (InsuLIN R) Q6HR SC 02/15/24 12:00 Dextrose 50 ml UD PRN IV Blood Sugar LESS THAN 60 02/15/24 09:45 Review of Systems Constitutional: No symptom reported Ears, Nose, & Throat: No symptom reported Eyes: No symptom reported Neurological: No symptoms reported Pulmonary/Respiratory: Shortness of breath Cardiovascular: Chest pain Gastrointestinal: No symptom reported Genitourinary: No symptom reported Musculoskeletal: No symptom reported Skin: No symptom reported Psychiatric: No symptom reported Endocrine: No symptom reported Hematologic/Lymphatic: No symptom reported Vital Signs Vital Signs Date Time Temp Pulse Resp B/P (MAP) Pulse Ox O2 Delivery O2 Flow Rate FiO2 02/15/24 09:17 95 Nasal Cannula* 2 28 02/15/24 09:15 90 16 02/15/24 09:14 99.5 108/72 (84) 99.5 Physical Exam General Appearance: Cooperative. Obesity Pulmonary/Respiratory: Clear, bilateral breaths sounds. Cardiovascular/Chest: Regular rate and rhythm. Peripheral Pulses: 2+ Radial (R). 2+ Radial (L). 2+ Pedal (R). 2+ Pedal (L) Abdominal Exam: Normal bowel sounds. Ankle Exam: Negative ankle edema Lower extremities: Negative lower extremity edema Neuro/Mental Status: A/OX4, coherent. Thoughts/Psych: Normal thought pattern. Appropriate mood and affect. Good judg ment and insight. Appearance: No acute distress. Skin Exam: Normal inspection. Normal color. Warm and dry. Labs/Diagnostic Data Labs Test 02/15/24 08:20 02/15/24 05:45 Range/Units Troponin I High Sensitivity 110 *H </=34 ng/L White Blood Count 8.3 4.4-10.8 10^3/uL Red Blood Count 4.80 4.0-5.20 10^6/uL Hemoglobin 13.8 12.2-16.2 g/dL Hematocrit 41.6 36.0-46.0 % Mean Corpuscular Volume 86.8 80.0-100.0 fL Mean Corpuscular Hemoglobin 28.8 28.0-32.0 pg Mean Corpuscular Hemoglobin Concent 33.2 32.0-36.0 g/dL Red Cell Distribution Width 16.0 H 11.8-14.3 % Platelet Count 280 140-450 10^3/uL Mean Platelet Volume 8.1 6.9-10.8 fL Neutrophils (%) (Auto) 66.2 37.0-80.0 % Lymphocytes (%) (Auto) 28.5 10.0-50.0 % Monocytes (%) (Auto) 3.6 0.0-12.0 % Eosinophils (%) (Auto) 1.2 0.0-7.0 % Basophils (%) (Auto) 0.5 0.0-2.0 % Neutrophils # (Auto) 5.5 1.6-8.6 10 ^3/uL Lymphocytes # (Auto) 2.4 0.4-5.4 10 ^3/uL Monocytes # (Auto) 0.3 0-1.3 10 ^3/uL Eosinophils # (Auto) 0.1 0-0.8 10 ^3/uL Basophils # (Auto) 0 0-0.2 10 ^3/uL Nucleated Red Blood Cells 0.1 % Sodium Level 135 L 136-145 mmol/L Potassium Level 4.2 3.5-5.1 mmol/L Chloride Level 105 98-107 mmol/L Carbon Dioxide Level 20 20-31 mmol/L Anion Gap 10 5-15 Blood Urea Nitrogen 16 9-23 mg/dL Creatinine 0.99 0.550-1.02 mg/dL Glomerular Filtration Rate Calc 66 >90 mL/min BUN/Creatinine Ratio 16.2 10.0-20.0 Serum Glucose 240 H 74-106 mg/dL Calcium Level 10.0 8.7-10.4 mg/dL Total Bilirubin 2.2 H 0.2-1.0 mg/dL Aspartate Amino Transferase (AST) 21 13-40 U/L Alanine Aminotransferase (ALT) 23 7-40 U/L Alkaline Phosphatase 136 H 46-116 U/L B-Type Natriuretic Peptide 2127.12 0-100 pg/mL Total Protein 7.2 5.7-8.2 g/dL Albumin 4.1 3.2-4.8 g/dL Assessment Chest pain, rule out InStent restenosis/thrombosis Coronary artery disease s/p PTCA to the RCA/LAD x 2DES on 01/18/2024 Paroxysmal atrial fibrillation/atrial flutter s/p DC cardioversion on 01/21/2024 Chronic compensated HFrEF, NYHA class III Ischemic cardiomyopathy Vke-afnbeua-kjndbhfnn diabetes mellitus, uncontrolled, HgbA1C >14% Hypertension Dyslipidemia Nicotine dependence Cannabinoid use Obesity Medical noncompliance Plan/Recommendation We will continue with the plan recommendations (Dr. Gonzales): * Echocardiogram from 01/21/24 revealed: LVEF 35% with global wall hypokinesia * Initiate GDMT for CHF as tolerated * Single antiplatelet therapy and NOAC (Eliquis) * [id number] Score 5. HAS-BLED Score 1 * Continue NOAC therapy with Eliquis * Continue antiarrhythmic agent amiodarone * Beta-elsa for rate control * Lipid lowering agent * Risk factor modifications, counseled * Adherence to medication regimen Patient seen and examined at bedside with . Given the patient's clinical presentation and recent stent placement (with noncompliance to antiplatelet therapy), we will recommend for the patient to urgently go to the crime laboratory analyst to undergo a coronary angiogram with left heart catheterization. The procedure was discussed with the patient full detail including risks and benefits. Risks include but are not limited to bleeding, contrast induced nephropathy, stroke, and even . The patient understands and is agreeable to undergo the procedure. We will schedule the patient at first availability on 02/15/24. Thank you for allowing us to care for this patient. Please call with any questions or concerns. Critical care time spent: 40 minutes This medical document was created using an electronic medical record system with voice recognition software and computerized dictation system. Although this document has been carefully reviewed, there might still be some phonetic and typographical errors. Occasional wrong-word or ``sound-alike substitutions may have occurred due to the inherent limitations of voice recognition software. These areas are purely typographical due to imperfections of the software programs and do not reflect any compromise in the patient's medical care. Please read the chart carefully and recognize, using context, where these substitutions have occurred. Plan discussed with: Patient NYHA Physical activity limitations: Class3(Marked) ordinary (activity causes symtoms) Date of Service: Feb 15, 2024 Billing Provider: SUJATHA GONZALES MD Cardiology Common Codes: 42314-ABRZEXN INP/OBS CARE (High) Cardiology Consultation Codes: 22709-ALGPKTINO CONSULT <45MIN SHEFALI KEENE Feb 15, 2024 09:52
--- NOTE | 2024-02-15 09:57 | DVHHP2 ---
History of Present Illness Reason for Visit: Chest Pain History of Present Illness Lupe Gaytan is a 58-year-old female with past medical history of CHF, DM, hypertension, hyperlipidemia, and recent UT with 2 stents placed, who comes into the ER with complaints of chest pain. Patient states that her chest pain began last night and progressively worsened causing shortness of breath and her to come to the hospital. Patient states that she has not been taking any of her home medications for the last 2-3 days due to not feeling well. Patient states that there has been a flu going around in her household. Patient did come in with a fever of 101, tachycardic, and hypertensive. Cardiovascular: AFIB, CHF, UT, hyperipidemia Endocrine: Diabetes Past Surgical History: Cholecystectomy, (x 3) Family History: None Smoke: Quit (1 year ago) ALCOHOL: none Drugs: None Lives: with Family Review of Systems Constitutional: No: Fever, Chills, Sweats, Weakness, Malaise, Other Eyes: No: Pain, Vision change, Conjunctivae inflammation, Eyelid inflammation, Other, Redness ENT: No: Ear pain, Ear discharge, Nose pain, Nose discharge, Nose congestion, Mouth pain, Mouth swelling, Throat pain, Throat swelling, Other Respiratory: Shortness of breath; No: Cough, Dry, SOB with excertion, Wheezing, Hemoptysis, Pleuritic Pain, Sputum, Wheezing, Other Cardiovascular: Chest Pain; No: Palpitations, Orthopnea, Paroxysmal Noc. Dyspnea, Edema, Lt Headedness, Other Gastrointestinal: No: Nausea, Vomiting, Abdominal Pain, Diarrhea, Constipation, Melena, Hematochezia, Other Genitourinary: No Dysuria, No Frequency, No Incontinence, No Hematuria, No Retention, No Other Musculoskeletal: No: other, neck pain, shoulder pain, arm pain, back pain, hand pain, leg pain, foot pain Skin: No: Rash, Lesions, Jaundice, Bruising, Other Neurological: No: Weakness, Numbness, Incoordination, Change in speech, Confusion, Seizures, Other Allergies: Coded Allergies: Codeine (Verified Allergy, Intermediate, 07/21/12) Exam Vital Signs Vital Signs Date Time Temp Pulse Resp B/P (MAP) Pulse Ox O2 Delivery O2 Flow Rate FiO2 02/15/24 09:17 95 Nasal Cannula* 2 28 02/15/24 09:15 90 16 12/5/24 09:14 99.5 108/72 (84) 99.5 General Appearance: Alert, Oriented X3, Cooperative, moderate distress HEENT: Atraumatic, PERRLA Respiratory: Clear to auscultation, Normal air movement Cardiovascular: Regular rate, Normal S1, Normal S2 Abdominal: Normal bowel sounds, Soft, No tenderness, No hepatospenomegaly Extremities: No clubbing, No cyanosis, Other (bilateral lower extremity edema) Skin: No rashes, No breakdown, No significant lesion Neuro: Normal gait, Normal speech, Strength at 5/5 X4 ext Psych/Mental Status: Mental status NL, Mood NL Labs/Xrays Labs Test 02/15/24 08:20 02/15/24 05:45 Range/Units Troponin I High Sensitivity 110 *H </=34 ng/L White Blood Count 8.3 4.4-10.8 10^3/uL Red Blood Count 4.80 4.0-5.20 10^6/uL Hemoglobin 13.8 12.2-16.2 g/dL Hematocrit 41.6 36.0-46.0 % Mean Corpuscular Volume 86.8 80.0-100.0 fL Mean Corpuscular Hemoglobin 28.8 28.0-32.0 pg Mean Corpuscular Hemoglobin Concent 33.2 32.0-36.0 g/dL Red Cell Distribution Width 16.0 H 11.8-14.3 % Platelet Count 280 140-450 10^3/uL Mean Platelet Volume 8.1 6.9-10.8 fL Neutrophils (%) (Auto) 66.2 37.0-80.0 % Lymphocytes (%) (Auto) 28.5 10.0-50.0 % Monocytes (%) (Auto) 3.6 0.0-12.0 % Eosinophils (%) (Auto) 1.2 0.0-7.0 % Basophils (%) (Auto) 0.5 0.0-2.0 % Neutrophils # (Auto) 5.5 1.6-8.6 10 ^3/uL Lymphocytes # (Auto) 2.4 0.4-5.4 10 ^3/uL Monocytes # (Auto) 0.3 0-1.3 10 ^3/uL Eosinophils # (Auto) 0.1 0-0.8 10 ^3/uL Basophils # (Auto) 0 0-0.2 10 ^3/uL Nucleated Red Blood Cells 0.1 % Sodium Level 135 L 136-145 mmol/L Potassium Level 4.2 3.5-5.1 mmol/L Chloride Level 105 98-107 mmol/L Carbon Dioxide Level 20 20-31 mmol/L Anion Gap 10 5-15 Blood Urea Nitrogen 16 9-23 mg/dL Creatinine 0.99 0.550-1.02 mg/dL Glomerular Filtration Rate Calc 66 >90 mL/min BUN/Creatinine Ratio 16.2 10.0-20.0 Serum Glucose 240 H 74-106 mg/dL Calcium Level 10.0 8.7-10.4 mg/dL Total Bilirubin 2.2 H 0.2-1.0 mg/dL Aspartate Amino Transferase (AST) 21 13-40 U/L Alanine Aminotransferase (ALT) 23 7-40 U/L Alkaline Phosphatase 136 H 46-116 U/L B-Type Natriuretic Peptide 2127.12 0-100 pg/mL Total Protein 7.2 5.7-8.2 g/dL Albumin 4.1 3.2-4.8 g/dL CHEST RADIOGRAPH FINDINGS: Lines and Tubes: None Lungs: Bilateral interstitial prominence noted. Pleura: No effusion. No pneumothorax. Cardiomediastinal contours: Cardiomegaly. Bones: No acute osseous abnormality. IMPRESSION: 1. Pulmonary vascular congestion. Assessment/Plan Assessment/Plan Assessment: Elevated troponin, R/O ACS, SIRS, S/P UT with 2 stents placed on 01/25/2024, Hyperglycemia, Hypertension, Hyperlipidemia, CHF, Plan: Admit to Tele, Cardiology consult, NPO until cleared by cardiology, UA with reflux urine culture, Influenza A&B swab, COVID swab, Consider antibiotics if fevers continue, IV hydration, Home medications reconciled, Accu checks Q AC&HS with sliding scale, Plan discussed with: Patient My Orders Orders - PAPITO GRACIA [employer]PER[employer] Procedure Category Date Status Time * Cardiology Consult CONS 02/15/24 Transmitted 08:54 Admit ADMIT 02/15/24 Transmitted 08:54 Code Status CODE 02/15/24 Transmitted 08:54 Hydrocodone-Acet PHA 02/15/24 Logged 5/325mg Tab ([place] 09:00 Ondansetron Hcl PHA 12/5/24 Logged (Zofran) 09:00 Docusate Sodium [facility] 02/15/24 Logged Capsule (Colace 09:00 Complete Blood Count LAB 02/16/24 Verified 04:00 Comprehensive LAB 02/16/24 Verified Metabolic Panel 04:00 Npo (Nothing By DIET 02/15/24 Transmitted Mouth) Diet Breakfast Condition: Serious [facility] 02/15/24 Transmitted 08:54 Acetaminophen Tablet [facility] 02/15/24 Logged (Tylenol Tablet) 09:00 Nitroglycerin [facility] 02/15/24 Logged Sublingual (Ntrostat 09:00 Morphine Sulfate [facility] 02/15/24 Logged Injection 09:00 Stat Ekg For Chest [facility] 02/15/24 Transmitted Pain 08:54 Notify Of Changes [facility] 02/15/24 Transmitted From Base 08:54 Marketing Technology Specialist For [facility] 02/15/24 Transmitted 24 Hours 08:54 Emergency Dysrhythmia [facility] 02/15/24 Transmitted Protocol 08:54 Rhythm Strips Once [facility] 02/15/24 Transmitted Every Shift 08:54 Oxygen By Nasal RT 02/15/24 Transmitted Cannula 08:54 Amiodarone Tablet [facility] 02/15/24 Transmitted (Cordarone Tablet) 10:00 Apixaban (Eliquis) PHA 02/15/24 Transmitted 10:00 Aspirin Enteric [facility] 02/15/24 Transmitted Coated Tablet 10:00 Clopidogrel Bisulfate [facility] 02/15/24 Transmitted (Plavix) 10:00 Empagliflozin [facility] 02/15/24 Transmitted (Jardiance) 10:00 Sacubitril-Valsartan [facility] 02/15/24 Transmitted (Entresto 24-26 Mg 10:00 Spironolactone [facility] 02/15/24 Transmitted (Aldactone) 10:00 (Nf) Atorvastatin PHA 02/15/24 Transmitted Calcium (Lipitor) 18:00 (Nf) Metoprolol PHA 02/15/24 Transmitted Succinate (Metoprolol 10:00 Date of Service: Feb 15, 2024 Billing Provider: PAPITO GRACIA Common Visit Codes: [id number] INP/OBS CARE (MOD) PAPITO GRACIA Feb 15, 2024 09:57
[2024-02-15] MEDS ORDERED: CLOPIDOGREL BISULFATE 75 MG TAB PO SCH (10:00)
[2024-02-15] MEDS: SPIRONOLACTONE 25 MG TAB PO SCH (10:00)
[2024-02-15] MEDS: SACUBITRIL-VALSARTAN 24mg/26mg TAB PO SCH (10:00)
[2024-02-15] MEDS ORDERED: ASPirin-EC 81 mg tab PO SCH (10:00)
[2024-02-15] MEDS: METOPROLOL SUCCINATE XL 50 MG TAB PO SCH (10:00)
[2024-02-15] MEDS: IODIXANOL 320MG/ML 100ML BTL IV ONE (10:00)
[2024-02-15] MEDS: CLOPIDOGREL BISULFATE 75 MG TAB PO ONE (10:08)
[2024-02-15] MEDS: VERAPAMIL 2.5MG/ML INJ 2ML VIAL IV ONE (10:09)
[2024-02-15] MEDS: HEPARIN SODIUM (PORCINE) 5000 UNITS/ML 1ML VIAL ONE (10:09)
[2024-02-15] MEDS: LIDOCAINE 2%HCL (LOCAL ANESTH.) INJ 10ml MDV ONE (10:09)
[2024-02-15] MEDS: ANGIOMAX 250 MG VIAL IV ONE (10:10)
[2024-02-15] MEDS: MIDAZOLAM HCL 2MG/2ML 2ml VIAL (1mg/ml) ONE (10:11)
[2024-02-15] MEDS: fentaNYL CITRATE 100 MCG/2 ML VL ONE (10:11)
[2024-02-15] MEDS: SODIUM CHL 0.9% 0 ML ONE (10:11)
--- NOTE | 2024-02-15 11:03 | DVHOP2 ---
Operative Report -Cardiology Report Details Date: 02/15/24 Preop Diagnosis: Non ST-elevation myocardial infarction. Postop Diagnosis: Patient was admitted recently with a an inferior ST-elevation myocardial infarction status post two drug-eluting stent implantation to the right coronary artery as well as single drug-eluting stent of prox LAD. She has a pinched 1st diagonal branch which was left for medical management. She comes in today after she stopped taking her medication for two weeks with chest pain. Her EKG shows mild ST segment elevation in the lead two. With a Q-wave in the inferior leads. Coronary angiogram done today shows patent stent to the LAD and right coronary artery with no interval changes. Patient reassured about the findings and was advised to consider taking her medication without interruption. Given risk of stent thrombosis. Surgeon: Namrata Mcarthur MD Anesthesiologist: Conscious sedation using25 mcg of fentanyl as well as a mg IV midazolam. It was given under direct supervision of the primary actuary manager of the preserved attending nurses. Patient was monitored for total of35 minutes without obvious complication. Anesthesia: Local Consent: The patient was informed of the risks and benefits of the procedure. These include but are not limited to complications of anesthesia, postoperative infection, incomplete relief of symptoms, recurrence of symptoms, damage to blood vessels, nerves and tendons, deep venous thrombosis, pulmonary embolism and possible need for repeat surgery in the future. Indications for Surgery: This is a 58-year-old female patient who presents to the emergency room with chief complaint of chest pain that began two days ago. She describes chest pain as unprovoked, sharp in nature, intermittent, left-sided and without radiation. Associated symptoms include dizziness and shortness of breath. The patient comes to the emergency room for further evaluation. Cardiology has been consulted this time for further evaluation. Initial twelve lead electrocardiogram reveals sinus tachycardia with right bundle branch block and with notable Q-waves. Significant past medical history includes coronary artery disease status post PTCA x2 CARROL, paroxysmal atrial fibrillation status post DC cardioversion, congestive heart failure, bpl-[id number] diabetes mellitus, hypertension, dyslipidemia, nicotine dependence, and morbid obesity. Of note, the patient was recently seen at this facility on January 18, 2024 as a STEMI patient. At that time, the patient was emergently taken to the cardiac cath lab radiology technologist where she underwent a coronary angiogram status post PTCA x2 CARROL (to mid RCA and proximal LAD). The patient admits that she has not been taking any of her pres cribed medication including her dual antiplatelet therapy. Name of Procedure Performed 1. Left heart catheterization with left ventricular end-diastolic pressure measurement. 2. Selective right and left coronary angiography utilizing right transradial approach. 3. Conscious sedation using25 mcg of fentanyl as well as a mg IV midazolam. Procedure Details Procedure Details: Procedure note and vascular access: After informed consent was obtained, risks, benefits, complications, alternatives were discussed in details with the patient who agrees to have the procedure done. At the beginning of the procedure, the right wrist and the right groin area were prepped and draped in regular sterile fashion. Patient received total of25 mcg of fentanyl as well as a mg midazolam for conscious sedation. Thereafter a total of2 cc of 1% xylocaine was given to the right wrist area without problem. Finally a six Taiwanese sheath was placed to the right radial artery without difficulty using modified Seldinger technique findings were as follows: 1. Left heart catheterization with left ventricular end-diastolic pressure measurement: With the help of a tiger five Taiwanese catheter as well as a J-tip wire we were able to cross the aortic valve and measured left ventricular end-diastolic pressure which was elevated at 26 mm of mercury. There was no gradient across the aortic valve on the pullback. 2. Selective right and left coronary angiography utilizing right transradial approach: 1. The right coronary artery comes off the right coronary cusp it is widely pa tent it has two stent which has no InStent thrombosis. There is a sluggish flow in the distal RCA with no significant interval changes from baseline. 2. The left main comes off the left coronary cusp it is widely patent vessel it bifurcates into a large left anterior descending artery as well as large left circumflex vessel. 3. The left anterior descending artery it is a large vessel it gives rise to a large diagonal branch. There is a stent in the proximal LAD that spans with the diagonal branch. The stent has no significant InStent restenosis or stent thrombosis. There is 70 stenosis of the ostium of the 1st diagonal branch secondary to pinching of the stent to that part. No interval changes was noted from the last angiogram. 4. The left circumflex artery is a medium-sized vessel it gives rise to two obtuse marginal branches without significant stenosis. Impression and plan: 1. Widely patent stent to the right coronary artery as well as left anterior descending artery. 2. Quite elevated left ventricular end-diastolic pressure indicating underlying diastolic heart failure. 3. Sluggish flow to all coronary arteries, patient is hard high-risk of stent thrombosis if she interrupt dual antiplatelet therapy. I have stressed the importance of resuming backup dual antiplatelet therapy likely indefinitely in this lady. 4. Patient would need an echocardiogram to assess left ventricular ejection fraction and to proceed with goal-directed therapy. In addition to secondary prevention protocol with a high-dose statin to achieve LDL target of less than 50 mg/dL. Condition Good Dominance Dominance: Right Disposition NAMRATA MCARTHUR MD Feb 15, 2024 11:03
[2024-02-15] MEDS: ACCU-CHEK COMFORT CURVE STRIP VI SCH (12:19)
[2024-02-15] MEDS: InsuLIN REG 1unit/0.01ml Soln (100units/ml) SC SCH (12:20)
--- NOTE | 2024-02-15 12:54 | ECG ---
[facility] Test Date: 2024-02-15 Test Time: 05:11:24 Pat Name: MOON COON Department: er Room: [address] [place] [address] Gender: F Diver Assistant: reese : 1965 Requested By: TIFFANIE HERNANDEZ Order Number: [id number] Reading MD: Kishan Cintron Measurements Intervals [place] Rate: 136 P: 220 MT: 42 QRS: -135 QRSD: 148 T: 37 QT: 382 QTc: 575 Interpretive Statements Sinus or ectopic atrial tachycardia Right bundle branch block Inferior infarct, acute Electronically Signed On 02-15-2024 13:10:08 PST by Kishan Cintron Please click the below link to view image of tracing.
[2024-02-15 14:56] LABS: COVID19 ANTIGEN SOFIA FIA NEGATIVE (NEGATIVE); Rapid Influenza A Negative (Negative); Rapid Influenza B Negative (Negative)
[2024-02-15] MEDS: EMPAGLIFLOZIN 10 MG TAB PO SCH (15:21)
[2024-02-15] MEDS: APIXABAN 5 MG TAB PO SCH (15:21)
[2024-02-15] MEDS: AMIODARONE HCL 200 MG TAB PO SCH (15:22)
[2024-02-15] MEDS: traZODone HCL 50 MG TAB PO ONE (17:43)
[2024-02-15] MEDS: MORPHINE SULFATE INJ 2 MG/ml SYRG IV PRN (20:14)
[2024-02-15] MEDS: MELATONIN 5 MG TAB PO ONE (22:25)
[2024-02-15] MEDS: ATORVASTATIN 20 MG TAB PO SCH (22:25)
[2024-02-16] VITALS (7 sets, daily range): BP systolic 100–110; BP diastolic 58–71; PULSE 82–99; RESP 19–20; TEMP 97.8–98.2; O2SAT 91–99
[2024-02-16 06:33] LABS: Basophils # (auto) 0 10 ^3/uL (0-0.2); Basophils % (auto) 0.8 % (0.0-2.0); Eosinophils # (auto) 0.1 10 ^3/uL (0-0.8); Eosinophils % (auto) 1.6 % (0.0-7.0); Hematocrit 40.8 % (36.0-46.0); Hemoglobin 13.2 g/dL (12.2-16.2); Lymphocytes # (auto) 1.3 10 ^3/uL (0.4-5.4); Mean Corpuscular Hemoglobin 28.9 pg (28.0-32.0); Mean Corpuscular Hgb Conc. 32.5 g/dL (32.0-36.0); Mean Corpuscular Volume 88.8 fL (80.0-100.0); Monocytes # (auto) 0.2 10 ^3/uL (0-1.3); Monocytes % (auto) 6.5 % (0.0-12.0); Neutrophils % (auto) 55.1 % (37.0-80.0); Nucleated Red Blood Cells % 0.2 %; Platelet Count (auto) 208 10^3/uL (140-450); Red Blood Cells 4.59 10^6/uL (4.0-5.20); Red Cell Distribution Width 16.5 % (11.8-14.3); White Blood Cell 3.6 10^3/uL (4.4-10.8)
--- NOTE | 2024-02-16 06:48 | ECG ---
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
[2024-02-16 06:54] LABS: Alanine Aminotransferase 34 U/L (7-40); Albumin 3.5 g/dL (3.2-4.8); Anion Gap 9 (5-15); Aspartate Aminotransferase 31 U/L (13-40); BUN/Creatinine Ratio 15.7 (10.0-20.0); Blood Urea Nitrogen 14 mg/dL (9-23); Calcium 9.2 mg/dL (8.7-10.4); Carbon Dioxide 22 mmol/L (20-31); Chloride 106 mmol/L (98-107); Potassium 3.8 mmol/L (3.5-5.1); Sodium 137 mmol/L (136-145)
[2024-02-16 06:55] LABS: Total Protein 6.3 g/dL (5.7-8.2)
[2024-02-16 06:58] LABS: Alkaline Phosphatase 178 U/L (46-116); Bilirubin, Total 2.6 mg/dL (0.2-1.0); Glucose 117 mg/dL (74-106)
[2024-02-16] MEDS: CLOPIDOGREL BISULFATE 75 MG TAB PO SCH (09:38)
--- NOTE | 2024-02-16 10:40 | DVHPN2 ---
Subjective Continues to complain of shortness of breath and chest pain Reviewed: Care Plan, H&P, Labs, Medications, Previous Orders, Radiology, Other (Consultation) Changes from previous H/P or p: No Changes Objective Vitals Vital Signs Date Time Temp Pulse Resp B/P (MAP) Pulse Ox O2 Delivery O2 Flow Rate FiO2 02/16/24 09:36 90 100/70 02/16/24 09:00 98.2 20 91 98.2 02/16/24 08:00 Nasal Cannula* 3 32 Intake/Output Intake and Output 02/16/24 07:00 Intake Total 500 ml Output Total 0 ml Balance 500 ml Intake Oral 500 ml Output Urine Total 0 ml # Voids 1 General Appearance: Alert, Oriented X3, Cooperative, mild distress HEENT: Atraumatic Lungs: Clear to auscultation, Normal air movement Cardiovascular: Regular rate, Normal S1, Normal S2 Neuro: Normal speech, Cranial nerves 3-12 NL Psych/Mental Status: Mental status NL Medications Current Medications Medications Dose Ordered Sig/Sonia Route Start Time Stop Time Status Last Admin Dose Admin Acetaminophen/ Hydrocodone Bitart 1 tab Q4HP PRN PO 02/15/24 09:00 Ondansetron HCl 4 mg Q4HP PRN IV 02/15/24 09:00 Docusate Sodium 100 mg BIDPRN PRN PO 02/15/24 09:00 Acetaminophen 650 mg Q6HP PRN PO 02/15/24 09:00 Nitroglycerin 0.4 mg Q5MINP PRN SL 02/15/24 09:00 Morphine Sulfate 2 mg Q30M PRN IV 02/15/24 09:00 02/15/24 22:41 2 MG Amiodarone HCl 200 mg DAILY PO 02/15/24 10:00 02/16/24 09:37 200 MG Apixaban 5 mg BID PO 02/15/24 10:00 02/16/24 09:38 5 MG Empaglifozin 10 mg DAILY PO 02/15/24 10:00 02/16/24 09:38 10 MG Sacubitril/ Valsartan 1 tab BID PO 02/15/24 10:00 02/15/24 22:25 1 TAB Spironolactone 25 mg DAILY PO 02/15/24 10:00 02/16/24 09:38 25 MG Atorvastatin Calcium 40 mg HS PO 02/15/24 22:00 12/5/24 22:25 40 MG Metoprolol Succinate 25 mg DAILY PO 02/15/24 10:00 Diagnostic Test (Pha) 1 strip Q6HR 02/15/24 12:00 02/16/24 05:47 1 STRIP Insulin Human Regular Q6HR SC 02/15/24 12:00 02/16/24 00:10 3 UNITS Dextrose 50 ml UD PRN IV 02/15/24 09:45 Clopidogrel Bisulfate 75 mg DAILY PO 02/16/24 10:00 02/16/24 09:38 75 MG Laboratory Results Laboratory Tests 02/16/24 06:06 Chemistry Test 02/16/24 06:06 Albumin 3.5 g/dL (3.2-4.8) Calcium Level 9.2 mg/dL (8.7-10.4) Total Protein 6.3 g/dL (5.7-8.2) LFT Test 02/16/24 06:06 Alanine Aminotransferase (ALT) 34 U/L (7-40) Alkaline Phosphatase 178 U/L (46-116) H Aspartate Amino Transferase (AST) 31 U/L (13-40) Total Bilirubin 2.6 mg/dL (0.2-1.0) H Urinalysis Test 02/15/24 17:38 Urine Color Pending Urine Clarity Pending Urine pH Pending Urine Specific Lane Pending Urine Protein Pending Urine Ketones Pending Urine Blood Pending Urine Nitrite Pending Urine Bilirubin Pending Urine Urobilinogen Pending Urine Leukocyte Esterase Pending Urine RBC Pending Urine WBC Pending Urine Squamous Epithelial Cells Pending Urine Bacteria Pending Urine Glucose Pending Labs and/or images reviewed: Labs reviewed by me, Image(s) reviewed by me Assessment/Plan Assessment/Plan A 58-year-old female patient; with multiple comorbidities; who presented with SOB and chest pain. #SOB, and Chest pain, in-stent restenosis/thrombosis ruled out by cardiac catheterization done on February 15, 2024; reviewed cardiac catheterization note; telemetry; continue clopidogrel and a statin; started on aspirin as per cardiology recommendations; telemetry; continue monitoring #Coronary artery disease s/p PTCA to the RCA/LAD x 2DES on January 18, 2024; management as above; continue monitoring #Paroxysmal atrial fibrillation/atrial flutter s/p DC cardioversion on January 21, 2024; continue amiodarone and apixaban; telemetry; continue monitoring #Ischemic/chronic compensated HFrEF with diastolic dysfunction, NYHA class III; continue GDMT; telemetry; will need to repeat echocardiogram after three months; reviewed echocardiogram from earlier this month; continue monitoring #KAREN; most likely vasomotor nephropathy; avoid nephrotoxic agents; continue monitoring #Alo-qapajqb-xktiepcej diabetes mellitus, uncontrolled, HgbA1C >14%; continue insulin sliding scale with hypoglycemia protocol; continue monitoring #Hypertensive heart disease with heart failure; continue antihypertensive medications and adjust accordingly; continue monitoring #Dyslipidemia; continue statin; continue monitoring #Polysubstance use disorder; tobacco and marijuana; counseled on cessation for 22 minutes; continue monitoring #Nonadherence; counseled on the importance of adherence to medical management especially medications including dual antiplatelet therapy and anticoagulation; continue monitoring #Morbid obesity with metabolic syndrome; counseled on the importance of adopting healthy lifestyle with diet and exercise in order to lose weight; continue monitoring #Physical deconditioning in the setting of recurrent hospitalization; consulted physical therapy and executive secretary social welfare; continue monitoring Goals of care discussion for 20 minutes; full code. Late Entry. This medical document was created using an electronic medical record system with computerized dictation system. Although this document has been carefully reviewed, there might still be some phonetic and typographical errors. These areas are purely typographical due to imperfections of the software programs, and do not reflect any compromise in the patient's medical care. Plan discussed with: Patient, Other (Nurse) My Orders Orders - MICHAELLE ARANGO MD Procedure Category Date Status Time Complete Blood Count LAB 02/17/24 Verified 04:00 Comprehensive LAB 02/17/24 Verified Metabolic Panel 04:00 Date of Service: Feb 16, 2024 Billing Provider: MICHAELLE ARANGO MD Common Visit Codes: [id number] INP/OBS CARE(HIGH) Secondary Visit Codes: 92297-ADSVG CHNG SMOKING >10MIN (22 minutes for both tobacco and marijuana use cessation), [id number] CARE PLAN 30 MINUTES (20 minutes) MICHAELLE ARANGO MD Feb 16, 2024 10:40
--- NOTE | 2024-02-16 10:58 | DVHPN2 ---
Consult Progress Note Date Seen: Feb 16, 2024 Subjective Review of Systems: CVS:Normal, RESPIRATORY:Normal, NEURO:Normal Other Systems: C/o mild abd pain otherwise cardiac stable Objective vital signs Vital Sign Date Time Temp Pulse Resp B/P (MAP) Pulse Ox O2 Delivery O2 Flow Rate FiO2 02/16/24 09:36 90 100/70 02/16/24 09:00 98.2 20 91 98.2 02/16/24 08:00 Nasal Cannula* 3 32 Total Intake and Output 02/15/24 02/15/24 02/16/24 15:00 23:00 07:00 Intake Total 300 ml 200 ml Output Total 0 ml Balance 300 ml 200 ml medications Current Medications Medications Dose Ordered Sig/Sonia Route Start Time Stop Time Status Last Admin Dose Admin Acetaminophen/ Hydrocodone Bitart 1 tab Q4HP PRN PO 02/15/24 09:00 Ondansetron HCl 4 mg Q4HP PRN IV 02/15/24 09:00 Docusate Sodium 100 mg BIDPRN PRN PO 02/15/24 09:00 Acetaminophen 650 mg Q6HP PRN PO 02/15/24 09:00 Nitroglycerin 0.4 mg Q5MINP PRN SL 02/15/24 09:00 Morphine Sulfate 2 mg Q30M PRN IV 02/15/24 09:00 02/15/24 22:41 2 MG Amiodarone HCl 200 mg DAILY PO 02/15/24 10:00 02/16/24 09:37 200 MG Apixaban 5 mg BID PO 02/15/24 10:00 02/16/24 09:38 5 MG Empaglifozin 10 mg DAILY PO 02/15/24 10:00 02/16/24 09:38 10 MG Sacubitril/ Valsartan 1 tab BID PO 02/15/24 10:00 02/15/24 22:25 1 TAB Spironolactone 25 mg DAILY PO 02/15/24 10:00 02/16/24 09:38 25 MG Atorvastatin Calcium 40 mg HS PO 02/15/24 22:00 02/15/24 22:25 40 MG Metoprolol Succinate 25 mg DAILY PO 02/15/24 10:00 Diagnostic Test (Pha) 1 strip Q6HR 02/15/24 12:00 02/16/24 05:47 1 STRIP Insulin Human Regular Q6HR SC 02/15/24 12:00 02/16/24 00:10 3 UNITS Dextrose 50 ml UD PRN IV 02/15/24 09:45 Clopidogrel Bisulfate 75 mg DAILY PO 02/16/24 10:00 02/16/24 09:38 75 MG Examination: GENERAL:Normal, LUNGS:Normal, CVS:Normal, NEURO:Normal laboratory and microbiology Laboratory Tests 02/16/24 06:06 Test 02/16/24 06:06 Range/Units Serum Glucose 117 H 74-106 mg/dL Problem List/Assessment/Plan Problem List/Assessment/Plan Chest pain, in-stent restenosis/thrombosis ruled out Coronary artery disease s/p PTCA to the RCA/LAD x 2DES on 01/18/2024 Paroxysmal atrial fibrillation/atrial flutter s/p DC cardioversion on 01/21/2024 Ischemic/chronic compensated HFrEF, NYHA class III Tpy-zbkbdip-fsktlcnwl diabetes mellitus, uncontrolled, HgbA1C >14% Hypertension Dyslipidemia Nicotine dependence/Cannabinoid use Medical noncompliance Obesity Plan/Recommendation (Dr. Gonzales) * Echocardiogram from 01/21/24 revealed: LVEF 35% with global wall hypokinesia * Continue GDMT for CHF and up-titrate as tolerated * Single-antiplatelet therapy, NOAC (Eliquis), and lipid-lowering agent * [id number] Score 5. HAS-BLED Score 1 * Antiarrhythmic agent, amiodarone * Beta-elsa for rate control * Risk factor modifications, counseled * STRONGLY counseled for adherence to medication regimen. Patient promises she will be compliant with medical therapy at home There is no further cardiac work-up indicated, please call if in need to re- consult. Thank you for allowing us to care for this patient. This medical document was created using an electronic medical record system with voice recognition software and computerized dictation system. Although this document has been carefully reviewed, there might still be some phonetic and typographical errors. Occasional wrong-word or ``sound-alike substitutions may have occurred due to the inherent limitations of voice recognition software. These areas are purely typographical due to imperfections of the software programs and do not reflect any compromise in the patient's medical care. Please read the chart carefully and recognize, using context, where these substitutions have occurred. Plan discussed with: Patient, Other Date of Service: Feb 16, 2024 Billing Provider: SUJATHA GONZALES MD Cardiology Common Codes: [id number] INP/OBS CARE(Mod) LAURA TORRES [facility] Feb 16, 2024 10:58
[2024-02-16] MEDS: MAALOX PLUS or MAALOX 30 ML PO ONE (12:38)
[2024-02-16] MEDS: MAGNESIUM SULFATE 1GM/100ML 100 ML IV ONE (12:38)
[2024-02-16 14:04] LABS: INR 1.17 (0.9-1.15); Partial Thromboplastin Time 30.6 SEC (24.5-34.5); Prothrombin Time 12.3 sec (9.3-11.8)
[2024-02-16] MEDS: MORPHINE SULFATE INJ 2 MG/ml SYRG IV PRN (14:23)
[2024-02-16] MEDS: AMIODARONE HCL 200 MG TAB PO SCH (21:39)
[2024-02-16] MEDS: SACUBITRIL-VALSARTAN 24mg/26mg TAB PO SCH (21:40)
[2024-02-17] VITALS (8 sets, daily range): BP systolic 97–118; BP diastolic 62–85; PULSE 71–99; RESP 18–20; TEMP 97.4–98.2; O2SAT 92–100
--- NOTE | 2024-02-17 04:54 | DVHPN2 ---
Subjective Continues to complain of shortness of breath and chest pain Reviewed: Care Plan, H&P, Labs, Medications, Previous Orders, Radiology, Other (Consultation) Changes from previous H/P or p: No Changes Objective Vitals Vital Signs Date Time Temp Pulse Resp B/P (MAP) Pulse Ox O2 Delivery O2 Flow Rate FiO2 02/17/24 02:39 98 20 138/86 02/17/24 01:00 97.8 96 97.8 02/16/24 20:00 Nasal Cannula* 3 32 Intake/Output Intake and Output 02/17/24 07:00 Intake Total 800 ml Output Total 600 ml Balance 200 ml Intake Oral 700 ml IV Total 100 ml Output Urine Total 600 ml General Appearance: Alert, Oriented X3, Cooperative, No acute distress HEENT: Atraumatic Lungs: Clear to auscultation, Normal air movement Cardiovascular: Regular rate, Normal S1, Normal S2 Neuro: Normal speech, Cranial nerves 3-12 NL Psych/Mental Status: Mental status NL Medications Current Medications Medications Dose Ordered Sig/Sonia Route Start Time Stop Time Status Last Admin Dose Admin Acetaminophen/ Hydrocodone Bitart 1 tab Q4HP PRN PO 02/15/24 09:00 Ondansetron HCl 4 mg Q4HP PRN IV 02/15/24 09:00 Docusate Sodium 100 mg BIDPRN PRN PO 02/15/24 09:00 Acetaminophen 650 mg Q6HP PRN PO 02/15/24 09:00 Nitroglycerin 0.4 mg Q5MINP PRN SL 02/15/24 09:00 Morphine Sulfate 2 mg Q30M PRN IV 02/15/24 09:00 02/17/24 00:17 2 MG Apixaban 5 mg BID PO 02/15/24 10:00 02/16/24 21:40 5 MG Empaglifozin 10 mg DAILY PO 02/15/24 10:00 02/16/24 09:38 10 MG Atorvastatin Calcium 40 mg HS PO 02/15/24 22:00 02/16/24 21:40 40 MG Metoprolol Succinate 25 mg DAILY PO 02/15/24 10:00 Diagnostic Test (Pha) 1 strip Q6HR 02/15/24 12:00 02/17/24 00:04 1 STRIP Insulin Human Regular Q6HR SC 02/15/24 12:00 02/17/24 00:07 3 UNITS Dextrose 50 ml UD PRN IV 02/15/24 09:45 Clopidogrel Bisulfate 75 mg DAILY PO 02/16/24 10:00 02/16/24 09:38 75 MG Amiodarone HCl 200 mg BID PO 02/16/24 22:00 02/16/24 21:39 200 MG Sacubitril/ Valsartan 0.5 tab BID PO 02/16/24 22:00 02/16/24 21:40 0.5 TAB Spironolactone 12.5 mg DAILY PO 02/17/24 10:00 Morphine Sulfate 2 mg Q4HPRN PRN IV 02/16/24 12:00 02/17/24 02:39 2 MG Laboratory Results Laboratory Tests 02/16/24 06:06 Chemistry Test 02/16/24 06:06 Albumin 3.5 g/dL (3.2-4.8) Calcium Level 9.2 mg/dL (8.7-10.4) Total Protein 6.3 g/dL (5.7-8.2) Coagulation Test 02/16/24 13:30 Prothrombin Time 12.3 sec (9.3-11.8) H Prothrombin Time INR 1.17 (0.9-1.15) H Activated Partial Thromboplast Time 30.6 SEC (24.5-34.5) LFT Test 02/16/24 06:06 Alanine Aminotransferase (ALT) 34 U/L (7-40) Alkaline Phosphatase 178 U/L (46-116) H Aspartate Amino Transferase (AST) 31 U/L (13-40) Total Bilirubin 2.6 mg/dL (0.2-1.0) H Urinalysis Test 02/15/24 17:38 Urine Color Pending Urine Clarity Pending Urine pH Pending Urine Specific [place] Pending Urine Protein Pending Urine Ketones Pending Urine Blood Pending Urine Nitrite Pending Urine Bilirubin Pending Urine Urobilinogen Pending Urine Leukocyte Esterase Pending Urine RBC Pending Urine WBC Pending Urine Squamous Epithelial Cells Pending Urine Bacteria Pending Urine Glucose Pending Microbiology Microbiology Date/Time Source Procedure Growth Status 02/15/24 18:10 Nose MRSA Screen - Final Complete Labs and/or images reviewed: Labs reviewed by me, Image(s) reviewed by me Assessment/Plan Assessment/Plan A 58-year-old female patient; with multiple comorbidities; who presented with SOB and chest pain. #SOB/Chest pain, in-stent restenosis/thrombosis ruled out by cardiac catheterization done on February 15, 2024; reviewed cardiac catheterization note; telemetry; continue clopidogrel and statin; on aspirin as per cardiology recommendations; telemetry; continue monitoring #Coronary artery disease s/p PTCA to the RCA/LAD x 2DES on January 18, 2024; management as above; continue monitoring #Paroxysmal atrial fibrillation/atrial flutter s/p DC cardioversion on January 21, 2024; continue amiodarone and apixaban; telemetry; continue monitoring #Ischemic/chronic compensated HFrEF with diastolic dysfunction, NYHA class III; in exacerbation on with pulmonary congestion on chest x-ray; will start IV diuresis; continue GDMT; telemetry; will need to repeat echocardiogram after three months; reviewed echocardiogram from earlier this month; continue monitoring #KAREN; most likely vasomotor nephropathy; avoid nephrotoxic agents; continue monitoring #Gvz-jcuieyx-gebzwkhvz diabetes mellitus, uncontrolled, HgbA1C >14%; continue insulin sliding scale with hypoglycemia protocol; continue monitoring #Hypertensive heart disease with heart failure; continue antihypertensive medications and adjust accordingly; continue monitoring #Dyslipidemia; continue statin; continue monitoring #Polysubstance use disorder; tobacco and marijuana; counseled on cessation; continue monitoring #Nonadherence; counseled on the importance of adherence to medical management especially medications including dual antiplatelet therapy and anticoagulation; continue monitoring #Morbid obesity with metabolic syndrome; counseled on the importance of adopting healthy lifestyle with diet and exercise in order to lose weight; continue monitoring #Physical deconditioning in the setting of recurrent hospitalization; physical therapy and forensic social worker onboard; continue monitoring Late Entry. This medical document was created using an electronic medical record system with computerized dictation system. Although this document has been carefully reviewed, there might still be some phonetic and typographical errors. These areas are purely typographical due to imperfections of the software programs, and do not reflect any compromise in the patient's medical care. Plan discussed with: Patient, Other (Nurse) My Orders Orders - MICHAELLE ARANGO MD Procedure Category Date Status Time Complete Blood Count LAB 02/17/24 Logged 04:00 Comprehensive LAB 02/17/24 Logged Metabolic Panel 04:00 Morphine Sulfate PHA 02/16/24 In Process Injection 12:00 Pt Request For Service PT 02/17/24 Logged 04:43 * [place] Operator CONS 12/7/24 Transmitted Consult Complete Blood Count LAB 02/18/24 Verified 04:00 Comprehensive LAB 02/18/24 Verified Metabolic Panel 04:00 Aspirin Tablet PHA 02/17/24 In Process 10:00 Date of Service: Feb 17, 2024 Billing Provider: MICHAELLE ARANGO MD Common Visit Codes: [id number] INP/OBS CARE(HIGH) MICHAELLE ARANGO MD Feb 17, 2024 04:54
[2024-02-17 08:00] LABS: Basophils # (auto) 0 10 ^3/uL (0-0.2); Basophils % (auto) 1.2 % (0.0-2.0); Eosinophils # (auto) 0.2 10 ^3/uL (0-0.8); Hematocrit 41.9 % (36.0-46.0); Hemoglobin 14.1 g/dL (12.2-16.2); Lymphocytes # (auto) 1.9 10 ^3/uL (0.4-5.4); Mean Corpuscular Hemoglobin 29.4 pg (28.0-32.0); Mean Corpuscular Hgb Conc. 33.7 g/dL (32.0-36.0); Mean Corpuscular Volume 87.4 fL (80.0-100.0); Monocytes # (auto) 0.2 10 ^3/uL (0-1.3); Monocytes % (auto) 5.8 % (0.0-12.0); Neutrophils # (auto) 1.6 10 ^3/uL (1.6-8.6); Nucleated Red Blood Cells % 0.3 %; Platelet Count (auto) 228 10^3/uL (140-450); White Blood Cell 3.9 10^3/uL (4.4-10.8)
[2024-02-17 08:08] LABS: Alanine Aminotransferase 36 U/L (7-40); Albumin 3.6 g/dL (3.2-4.8); Anion Gap 9 (5-15); Aspartate Aminotransferase 33 U/L (13-40); BUN/Creatinine Ratio 18.8 (10.0-20.0); Blood Urea Nitrogen 18 mg/dL (9-23); Calcium 9.5 mg/dL (8.7-10.4); Carbon Dioxide 25 mmol/L (20-31); Chloride 104 mmol/L (98-107); Sodium 138 mmol/L (136-145); Total Protein 6.5 g/dL (5.7-8.2)
[2024-02-17 08:10] LABS: Alkaline Phosphatase 257 U/L (46-116); Bilirubin, Total 1.7 mg/dL (0.2-1.0); Glucose 150 mg/dL (74-106)
[2024-02-17] MEDS: ASPirin 81 mg TAB PO SCH (09:48)
[2024-02-17] MEDS: SPIRONOLACTONE 25 MG TAB PO SCH (09:50)
[2024-02-17] MEDS: FUROSEMIDE 40 MG/4 ML VIAL IV SCH (19:08)
[2024-02-18] VITALS (8 sets, daily range): BP systolic 101–125; BP diastolic 72–85; PULSE 67–92; RESP 17–20; TEMP 97.9–98.6; O2SAT 93–100
[2024-02-18 07:01] LABS: Basophils # (auto) 0 10 ^3/uL (0-0.2); Basophils % (auto) 0.7 % (0.0-2.0); Eosinophils # (auto) 0.2 10 ^3/uL (0-0.8); Hematocrit 45.4 % (36.0-46.0); Hemoglobin 15.2 g/dL (12.2-16.2); Mean Corpuscular Hemoglobin 29.2 pg (28.0-32.0); Mean Corpuscular Hgb Conc. 33.5 g/dL (32.0-36.0); Monocytes # (auto) 0.3 10 ^3/uL (0-1.3); Monocytes % (auto) 4.7 % (0.0-12.0); Neutrophils % (auto) 54.6 % (37.0-80.0); Platelet Count (auto) 304 10^3/uL (140-450); Red Blood Cells 5.22 10^6/uL (4.0-5.20); Red Cell Distribution Width 16.2 % (11.8-14.3); White Blood Cell 5.5 10^3/uL (4.4-10.8)
[2024-02-18 07:11] LABS: Alanine Aminotransferase 39 U/L (7-40); Albumin 4.2 g/dL (3.2-4.8); Anion Gap 10 (5-15); Aspartate Aminotransferase 29 U/L (13-40); BUN/Creatinine Ratio 20.8 (10.0-20.0); Blood Urea Nitrogen 21 mg/dL (9-23); Carbon Dioxide 25 mmol/L (20-31); Chloride 101 mmol/L (98-107); Sodium 136 mmol/L (136-145)
[2024-02-18 07:12] LABS: Alkaline Phosphatase 298 U/L (46-116); Bilirubin, Total 1.5 mg/dL (0.2-1.0); Calcium 10.6 mg/dL (8.7-10.4); Glucose 169 mg/dL (74-106); Total Protein 7.6 g/dL (5.7-8.2)
--- NOTE | 2024-02-18 09:47 | DVHPN2 ---
Subjective Continues to complain of shortness of breath and chest pain Reviewed: Care Plan, H&P, Labs, Medications, Previous Orders, Radiology, Other (Consultation) Changes from previous H/P or p: No Changes Objective Vitals Vital Signs Date Time Temp Pulse Resp B/P (MAP) Pulse Ox O2 Delivery O2 Flow Rate FiO2 02/18/24 09:42 89 19 106/72 02/18/24 08:33 98.1 93 98.1 02/17/24 20:00 Nasal Cannula* 3 32 Intake/Output Intake and Output 02/18/24 07:00 Intake Total 1400 ml Output Total 1200 ml Balance 200 ml Intake Oral 1400 ml Output Urine Total 1200 ml # Voids 2 # Bowel Movements 1 General Appearance: Alert, Oriented X3, Cooperative, No acute distress HEENT: Atraumatic Lungs: Clear to auscultation, Normal air movement Cardiovascular: Regular rate, Normal S1, Normal S2 Neuro: Normal speech, Cranial nerves 3-12 NL Psych/Mental Status: Mental status NL Medications Current Medications Medications Dose Ordered Sig/Sonia Route Start Time Stop Time Status Last Admin Dose Admin Acetaminophen/ Hydrocodone Bitart 1 tab Q4HP PRN PO 02/15/24 09:00 Ondansetron HCl 4 mg Q4HP PRN IV 02/15/24 09:00 Docusate Sodium 100 mg BIDPRN PRN PO 02/15/24 09:00 Acetaminophen 650 mg Q6HP PRN PO 02/15/24 09:00 Nitroglycerin 0.4 mg Q5MINP PRN SL 02/15/24 09:00 Morphine Sulfate 2 mg Q30M PRN IV 02/15/24 09:00 02/18/24 04:12 2 MG Apixaban 5 mg BID PO 02/15/24 10:00 02/18/24 09:37 5 MG Empaglifozin 10 mg DAILY PO 02/15/24 10:00 02/18/24 09:37 10 MG Atorvastatin Calcium 40 mg HS PO 02/15/24 22:00 02/17/24 21:54 40 MG Metoprolol Succinate 25 mg DAILY PO 02/15/24 10:00 02/18/24 09:38 25 MG Diagnostic Test (Pha) 1 strip Q6HR 02/15/24 12:00 02/18/24 05:50 1 STRIP Insulin Human Regular Q6HR SC 02/15/24 12:00 12/8/24 05:50 4 UNITS Dextrose 50 ml UD PRN IV 02/15/24 09:45 Clopidogrel Bisulfate 75 mg DAILY PO 02/16/24 10:00 02/18/24 09:37 75 MG Amiodarone HCl 200 mg BID PO 02/16/24 22:00 02/18/24 09:38 200 MG Sacubitril/ Valsartan 0.5 tab BID PO 02/16/24 22:00 02/18/24 09:37 0.5 TAB Spironolactone 12.5 mg DAILY PO 02/17/24 10:00 02/18/24 09:39 12.5 MG Morphine Sulfate 2 mg Q4HPRN PRN IV 02/16/24 12:00 02/18/24 09:42 2 MG Aspirin 81 mg DAILY PO 02/17/24 10:00 02/18/24 09:37 81 MG Furosemide 40 mg BIDD IV 02/17/24 18:45 02/18/24 05:49 40 MG Laboratory Results Laboratory Tests 02/18/24 06:01 Chemistry Test 02/18/24 06:01 Albumin 4.2 g/dL (3.2-4.8) Calcium Level 10.6 mg/dL (8.7-10.4) H Total Protein 7.6 g/dL (5.7-8.2) LFT Test 02/18/24 06:01 Alanine Aminotransferase (ALT) 39 U/L (7-40) Alkaline Phosphatase 298 U/L (46-116) H Aspartate Amino Transferase (AST) 29 U/L (13-40) Total Bilirubin 1.5 mg/dL (0.2-1.0) H Microbiology Microbiology Date/Time Source Procedure Growth Status 02/15/24 18:10 Nose MRSA Screen - Final Complete Labs and/or images reviewed: Labs reviewed by me, Image(s) reviewed by me Assessment/Plan Assessment/Plan A 58-year-old female patient; with multiple comorbidities; who presented with SOB and chest pain. #SOB/Chest pain, in-stent restenosis/thrombosis ruled out by cardiac catheterization done on February 15, 2024; reviewed cardiac catheterization note; telemetry; continue clopidogrel and statin; on aspirin as per cardiology recommendations; telemetry; continue monitoring #Coronary artery disease s/p PTCA to the RCA/LAD x 2DES on January 18, 2024; management as above; continue monitoring #Paroxysmal atrial fibrillation/atrial flutter s/p DC cardioversion on January 21, 2024; continue amiodarone and apixaban; telemetry; continue monitoring #Ischemic/chronic compensated HFrEF with diastolic dysfunction, NYHA class III; in exacerbation on with pulmonary congestion on chest x-ray; continue IV diuresis; continue GDMT; telemetry; will need to repeat echocardiogram after three months; reviewed echocardiogram from earlier this month; continue monitoring #KAREN; most likely vasomotor nephropathy; avoid nephrotoxic agents; continue monitoring #Zzp-czmjtqb-qblbwakhg diabetes mellitus, uncontrolled, HgbA1C >14%; continue insulin sliding scale with hypoglycemia protocol; continue monitoring #Hypertensive heart disease with heart failure; continue antihypertensive medications and adjust accordingly; continue monitoring #Dyslipidemia; continue statin; continue monitoring #Polysubstance use disorder; tobacco and marijuana; re-counseled on cessation for 15 minutes in the presence of the patient's daughter; continue monitoring #Nonadherence; counseled on the importance of adherence to medical management especially medications including dual antiplatelet therapy and anticoagulation; continue monitoring #Morbid obesity with metabolic syndrome; counseled on the importance of adopting healthy lifestyle with diet and exercise in order to lose weight; continue monitoring #Physical deconditioning in the setting of recurrent hospitalization; physical therapy and hospice social worker onboard; continue monitoring Had a long discussion with the patient and her daughter: An agreement reached that the patient will need home health with home RN for medications management in order to increase adherence to medical treatment and avoid rehospitalization; a new order placed to Ultrasound Supervisor. Goals of care rediscussed with the patient and her daughter for 22 minutes; full code. Late Entry. This medical document was created using an electronic medical record system with computerized dictation system. Although this document has been carefully reviewed, there might still be some phonetic and typographical errors. These areas are purely typographical due to imperfections of the software programs, and do not reflect any compromise in the patient's medical care. Plan discussed with: Patient, Daughter, Other (Nurse) My Orders Orders - MICHAELLE ARANGO MD Procedure Category Date Status Time Furosemide Injection PHA 02/17/24 In Process (Lasix Injection) 18:45 Date of Service: Feb 18, 2024 Billing Provider: MICHAELLE ARANGO MD Common Visit Codes: [id number] INP/OBS CARE(HIGH) Secondary Visit Codes: [id number] CHNG SMOKING >10MIN (Re counseled on cessation for 15 minutes), [id number] CARE PLAN 30 MINUTES (22 minutes) MICHAELLE ARANGO MD Feb 18, 2024 09:46
[2024-02-18] MEDS: LORazepam 2MG/ML-1ML VIAL IV PRN (14:23)
[2024-02-19] VITALS (8 sets, daily range): BP systolic 91–110; BP diastolic 49–69; PULSE 85–105; RESP 18–20; TEMP 97.7–98.6; O2SAT 94–100
[2024-02-19 06:37] LABS: Alanine Aminotransferase 35 U/L (7-40); Anion Gap 12 (5-15); BUN/Creatinine Ratio 27.1 (10.0-20.0); Carbon Dioxide 22 mmol/L (20-31); Chloride 101 mmol/L (98-107); Potassium 3.9 mmol/L (3.5-5.1)
[2024-02-19 06:39] LABS: Albumin 4.3 g/dL (3.2-4.8); Aspartate Aminotransferase 28 U/L (13-40)
[2024-02-19 06:40] LABS: Total Protein 7.8 g/dL (5.7-8.2)
[2024-02-19 06:48] LABS: Alkaline Phosphatase 274 U/L (46-116); Bilirubin, Total 1.7 mg/dL (0.2-1.0); Blood Urea Nitrogen 29 mg/dL (9-23); Calcium 10.6 mg/dL (8.7-10.4); Glucose 160 mg/dL (74-106); Sodium 135 mmol/L (136-145)
[2024-02-19 07:03] LABS: Amphetamine Screen, Urine Neg (NEGATIVE); Barbiturate Scree,Urine Neg (NEGATIVE); Benzodiazephine Screen, Urine Neg (NEGATIVE); Cannabinoid Screen, Urine Neg (NEGATIVE); Cocaine Screen, Urine Neg (NEGATIVE); Opiate Scree,Urine Neg (NEGATIVE); Phencyclidine Screen, Urine Neg (NEGATIVE)
[2024-02-19 07:27] LABS: Urine Blood TRACE /uL (Negative); Urine Clarity Clear (Clear); Urine Color Light-Yellow (Yellow); Urine Protein, UAD Negative (Negative); Urine Specific Gravity 1.008 (1.001-1.035); Urine Urobilinogen Normal (Negative); Urine WBC 2 /hpf (0 - 5)
--- NOTE | 2024-02-19 11:42 | DVHPN2 ---
Subjective The patient is seen and examined at bedside. Very tired today. Reviewed: Care Plan, H&P, Labs, Medications, Previous Orders, Radiology, Other (Consultation) Changes from previous H/P or p: No Changes Objective Vitals Vital Signs Date Time Temp Pulse Resp B/P (MAP) Pulse Ox O2 Delivery O2 Flow Rate FiO2 02/19/24 09:28 90 83/52 02/19/24 08:30 97.7 18 100 97.7 02/18/24 20:00 Room Air* 0 21 Intake/Output Intake and Output 02/19/24 07:00 Intake Total 1340 ml Output Total 650 ml Balance 690 ml Intake Oral 1340 ml Output Urine Total 650 ml # Voids 2 General Appearance: Alert, Oriented X3, Cooperative, No acute distress HEENT: Atraumatic Lungs: Clear to auscultation, Normal air movement Cardiovascular: Regular rate, Normal S1, Normal S2 Neuro: Normal speech, Cranial nerves 3-12 NL Psych/Mental Status: Mental status NL Medications Current Medications Medications Dose Ordered Sig/Sonia Route Start Time Stop Time Status Last Admin Dose Admin Acetaminophen/ Hydrocodone Bitart 1 tab Q4HP PRN PO 02/15/24 09:00 Ondansetron HCl 4 mg Q4HP PRN IV 02/15/24 09:00 Docusate Sodium 100 mg BIDPRN PRN PO 02/15/24 09:00 Acetaminophen 650 mg Q6HP PRN PO 02/15/24 09:00 Nitroglycerin 0.4 mg Q5MINP PRN SL 02/15/24 09:00 Morphine Sulfate 2 mg Q30M PRN IV 02/15/24 09:00 02/18/24 04:12 2 MG Apixaban 5 mg BID PO 02/15/24 10:00 02/19/24 09:14 5 MG Empaglifozin 10 mg DAILY PO 02/15/24 10:00 02/19/24 09:16 10 MG Atorvastatin Calcium 40 mg HS PO 02/15/24 22:00 02/18/24 21:17 40 MG Metoprolol Succinate 25 mg DAILY PO 02/15/24 10:00 02/18/24 09:38 25 MG Diagnostic Test (Pha) 1 strip Q6HR 02/15/24 12:00 02/19/24 11:37 1 STRIP Insulin Human Regular Q6HR SC 02/15/24 12:00 12/9/24 06:18 3 UNITS Dextrose 50 ml UD PRN IV 02/15/24 09:45 Clopidogrel Bisulfate 75 mg DAILY PO 02/16/24 10:00 02/19/24 09:15 75 MG Amiodarone HCl 200 mg BID PO 02/16/24 22:00 02/19/24 09:15 200 MG Sacubitril/ Valsartan 0.5 tab BID PO 02/16/24 22:00 02/19/24 09:14 0.5 TAB Spironolactone 12.5 mg DAILY PO 02/17/24 10:00 02/19/24 09:15 12.5 MG Morphine Sulfate 2 mg Q4HPRN PRN IV 02/16/24 12:00 02/19/24 03:50 2 MG Aspirin 81 mg DAILY PO 02/17/24 10:00 02/19/24 09:16 81 MG Furosemide 40 mg BIDD IV 02/17/24 18:45 02/19/24 06:13 40 MG Lorazepam 1 mg Q8HP PRN IV 02/18/24 13:45 02/19/24 09:24 1 MG Laboratory Results Laboratory Tests 02/18/24 06:01 02/19/24 05:45 Chemistry Test 02/19/24 05:45 Albumin 4.3 g/dL (3.2-4.8) Calcium Level 10.6 mg/dL (8.7-10.4) H Total Protein 7.8 g/dL (5.7-8.2) LFT Test 02/19/24 05:45 Alanine Aminotransferase (ALT) 35 U/L (7-40) Alkaline Phosphatase 274 U/L (46-116) H Aspartate Amino Transferase (AST) 28 U/L (13-40) Total Bilirubin 1.7 mg/dL (0.2-1.0) H Urinalysis Test 02/19/24 00:15 Urine Color Light-yellow (Yellow) Urine Clarity Clear (Clear) Urine pH 6.0 (5.0-9.0) Urine Specific [place] 1.008 (1.001-1.035) Urine Protein Negative (Negative) Urine Ketones Negative (Negative) Urine Blood Trace /uL (Negative) H Urine Nitrite Negative (Negative) Urine Bilirubin Negative (Negative) Urine Urobilinogen Normal mg/dL (Negative) Urine Leukocyte Esterase 1+ /uL (Negative) Urine RBC 1 /hpf (0 - 4) Urine WBC 2 /hpf (0 - 5) Urine Squamous Epithelial Cells Few /hpf (<5) Urine Bacteria /hpf (None Seen) Urine Glucose 4+ mg/dL (Normal) H Microbiology Microbiology Date/Time Source Procedure Growth Status 02/15/24 18:10 Nose MRSA Screen - Final Complete Labs and/or images reviewed: Labs reviewed by me Assessment/Plan Assessment/Plan #SOB/Chest pain, in-stent restenosis/thrombosis ruled out by cardiac catheterization done on February 15, 2024; reviewed cardiac catheterization note; telemetry; continue clopidogrel and statin; on aspirin as per cardiology recommendations; telemetry; continue monitoring #Coronary artery disease s/p PTCA to the RCA/LAD x 2DES on January 18, 2024; management as above; continue monitoring #Paroxysmal atrial fibrillation/atrial flutter s/p DC cardioversion on January 21, 2024; continue amiodarone and apixaban; telemetry; continue monitoring #Ischemic/chronic compensated HFrEF with diastolic dysfunction, NYHA class III; in exacerbation on with pulmonary congestion on chest x-ray; continue IV diuresis; continue GDMT; telemetry; will need to repeat echocardiogram after three months; reviewed echocardiogram from earlier this month; continue monitoring #KAREN; most likely vasomotor nephropathy; avoid nephrotoxic agents; continue monitoring #Cai-iislurs-omilcasyf diabetes mellitus, uncontrolled, HgbA1C >14%; continue insulin sliding scale with hypoglycemia protocol; continue monitoring #Hypertensive heart disease with heart failure; continue antihypertensive medications and adjust accordingly; continue monitoring #Dyslipidemia; continue statin; continue monitoring #Polysubstance use disorder; tobacco and marijuana; re-counseled on cessation for 15 minutes in the presence of the patient's daughter; continue monitoring #Nonadherence; counseled on the importance of adherence to medical management especially medications including dual antiplatelet therapy and anticoagulation; continue monitoring #Morbid obesity with metabolic syndrome; counseled on the importance of adopting healthy lifestyle with diet and exercise in order to lose weight; continue monitoring #Physical deconditioning in the setting of recurrent hospitalization; physical therapy and social worker onboard; continue monitoring. Encouraged the patient to be out of bed and ambulate. This medical document was created using an electronic medical record system with [employer] direct computerized dictation system. Although this document has been carefully reviewed, there may still be some phonetic and typographical errors. These areas are purely typographical due to imperfections of the software programs, and do not reflect any compromise in the patient's medical care. Plan discussed with: Patient Date of Service: Feb 19, 2024 Billing Provider: SABRA WALLACE MD Common Visit Codes: [id number] INP/OBS CARE(HIGH) SABRA WALLACE MD Feb 19, 2024 11:42
[2024-02-20] VITALS (7 sets, daily range): BP systolic 94–123; BP diastolic 47–81; PULSE 78–96; RESP 18–20; TEMP 97.5–98; O2SAT 95–97
[2024-02-20] MEDS ORDERED: CLOP75TA28 PO (12:44)
[2024-02-20] MEDS ORDERED: ASPI1TAB19 PO (12:44)
--- NOTE | 2024-02-20 13:55 | DVHDS2 ---
Discharge Summary Date of Admission Feb 15, 2024 at 08:54 Date of Discharge: Feb 20, 2024 Labs/Diagnostic Data: Laboratory Results Test 02/20/24 12:17 02/19/24 05:45 02/19/24 00:15 02/18/24 06:01 POC Glucose 209 mg/dl (70-106) Sodium Level 135 mmol/L (136-145) Potassium Level 3.9 mmol/L (3.5-5.1) Chloride Level 101 mmol/L (98-107) Carbon Dioxide Level 22 mmol/L (20-31) Anion Gap 12 (5-15) Blood Urea Nitrogen 29 mg/dL (9-23) Creatinine 1.07 mg/dL (0.550-1.02) Glomerular Filtration Rate Calc 60 mL/min (>90) BUN/Creatinine Ratio 27.1 (10.0-20.0) Serum Glucose 160 mg/dL (74-106) Calcium Level 10.6 mg/dL (8.7-10.4) Total Bilirubin 1.7 mg/dL (0.2-1.0) Aspartate Amino Transferase (AST) 28 U/L (13-40) Alanine Aminotransferase (ALT) 35 U/L (7-40) Alkaline Phosphatase 274 U/L (46-116) Total Protein 7.8 g/dL (5.7-8.2) Albumin 4.3 g/dL (3.2-4.8) Urine Color Light-yellow (Yellow) Urine Clarity Clear (Clear) Urine pH 6.0 (5.0-9.0) Urine Specific [place] 1.008 (1.001-1.035) Urine Protein Negative (Negative) Urine Ketones Negative (Negative) Urine Blood Trace /uL (Negative) Urine Nitrite Negative (Negative) Urine Bilirubin Negative (Negative) Urine Urobilinogen Normal mg/dL (Negative) Urine Leukocyte Esterase 1+ /uL (Negative) Urine RBC 1 /hpf (0 - 4) Urine WBC 2 /hpf (0 - 5) Urine Squamous Epithelial Cells Few /hpf (<5) Urine Bacteria /hpf (None Seen) Urine Glucose 4+ mg/dL (Normal) Urine Opiates Screen Neg (NEGATIVE) Urine Fentanyl Screen Neg (NEGATIVE) Urine Barbiturates Screen Neg (NEGATIVE) Urine Phencyclidine Screen Neg (NEGATIVE) Urine Amphetamines Screen Neg (NEGATIVE) Urine Benzodiazepines Screen Neg (NEGATIVE) Urine Cocaine Screen Neg (NEGATIVE) Urine Cannabinoids Screen Neg (NEGATIVE) White Blood Count 5.5 10^3/uL (4.4-10.8) Red Blood Count 5.22 10^6/uL (4.0-5.20) Hemoglobin 15.2 g/dL (12.2-16.2) Hematocrit 45.4 % (36.0-46.0) Mean Corpuscular Volume 87.0 fL (80.0-100.0) Mean Corpuscular Hemoglobin 29.2 pg (28.0-32.0) Mean Corpuscular Hemoglobin Concent 33.5 g/dL (32.0-36.0) Red Cell Distribution Width 16.2 % (11.8-14.3) Platelet Count 304 10^3/uL (140-450) Mean Platelet Volume 8.2 fL (6.9-10.8) Neutrophils (%) (Auto) 54.6 % (37.0-80.0) Lymphocytes (%) (Auto) 36.0 % (10.0-50.0) Monocytes (%) (Auto) 4.7 % (0.0-12.0) Eosinophils (%) (Auto) 4.0 % (0.0-7.0) Basophils (%) (Auto) 0.7 % (0.0-2.0) Neutrophils # (Auto) 3.0 10 ^3/uL (1.6-8.6) Lymphocytes # (Auto) 2.0 10 ^3/uL (0.4-5.4) Monocytes # (Auto) 0.3 10 ^3/uL (0-1.3) Eosinophils # (Auto) 0.2 10 ^3/uL (0-0.8) Basophils # (Auto) 0 10 ^3/uL (0-0.2) Nucleated Red Blood Cells 0.0 % Test 02/16/24 13:30 02/15/24 13:35 02/15/24 08:20 02/15/24 05:45 Prothrombin Time 12.3 sec (9.3-11.8) Prothrombin Time INR 1.17 (0.9-1.15) Activated Partial Thromboplast Time 30.6 SEC (24.5-34.5) Influenza Type A Antigen Negative (Negative) Influenza Type B Antigen Negative (Negative) SARS-CoV-2 Antigen (Rapid) Negative (NEGATIVE) Magnesium Level 1.7 mg/dL (1.6-2.6) Troponin I High Sensitivity 110 ng/L (</=34) Thyroid Stimulating Hormone (TSH) 2.17 uIU/mL (0.55-4.78) B-Type Natriuretic Peptide 2127.12 pg/mL (0-100) Other Laboratory Tests 02/19/24 05:45 02/18/24 06:01 Brief Hx & Hospital Course: 58-year-old female with CAD status post CARROL on LAD and RCA last month admitted for chest pain, after not taking medication for 2 weeks. Of note patient had previous admissions for similar chest pain. On this admission however patient received left heart catheterization with shows patent stent. Patient was given education regarding her chest pain and also taking antiplatelet medication. Discussed with patient regarding risk of not taking medication, dietary and medical noncompliance. Stable to discharge home Condition at Discharge: Good Final Diagnosis/Problems List Patient was admitted recently with a an inferior ST-elevation myocardialinfarction status post two drug-eluting stent implantation to the rightcoronary artery as well as single drug-eluting stent of prox LAD. She hasa pinched 1st diagonal branch which was left for medical management. Shecomes in today after she stopped taking her medication for two weeks withchest pain. Her EKG shows mild ST segment elevation in the lead two.With a Q-wave in the inferior leads. Coronary angiogram done today showspatent stent to the LAD and right coronary artery with no intervalchanges. Patient reassured about the findings and was advised to considertaking her medication without interruption. Given risk of stentthrombosis. Discharge Disposition: Home Discharge Instruct/Medications Diet: Consistent carbohydrate, Cardiac 2g Na,low cholest Activity: No Restrictions, As Tolerated Follow Up/Referral: cardiology PCP Medications: aspirin and plavix 39 Discharge Statement: "Patient was advised to return to the ER or call 911 if any headaches, dizziness, shortness of breath, chest pain, abdominal pain, bleeding, fevers, or worsening of medical condition. Patient was counseled about treatment plan, medications, possible side effects, patientverbalized understanding. All questions were answered to the best of my ability. This discharge took greater then 30 minutes in planning, reviewing documentation, counseling the patient, and discussing with other team members." ASSESSMENT ASSESSMENT Assessment #SOB/Chest pain stable angina #Coronary artery disease s/p PTCA to the RCA/LAD x 2DES on January 18, 2024, no in stent thrombosis from catheterization on February #Paroxysmal atrial fibrillation/atrial flutter s/p DC cardioversion on January 21, 2024 #Ischemic/chronic compensated HFrEF with diastolic dysfunction, NYHA class III #KAREN; most likely vasomotor nephropathy resolved Insulin-dependent diabetes mellitus #Hypertensive heart disease with heart failure #Dyslipidemia Smoker Marijuana use Medication noncompliance Diet noncompliance #Morbid obesity Metabolic syndrome #Physical deconditioning in the setting of recurrent hospitalization; physical therapy and manager social responsibility onboard; continue monitoring. Encouraged the patient to be out of bed and ambulate. Date of Service: Feb 20, 2024 Billing Provider: JAYJAY GOODEN MD Common Visit Codes: 27873-FWL/OBS DISCH DAY >30min JAYJAY GOODEN MD Feb 20, 2024 13:55
[2024-02-20] MEDS: HYDROcodone-ACET 5/325MG TAB PO PRN (15:57)
== END 2024-02-20 17:10 | disposition home or self-care (01) | DRG 191 ==
LOC: EDUNIT# 05:03 → ER 05:03 → EDBD 05:03 → TELE 08:54 → TELE-EAST 14:41
PROVIDERS: ADMIT Nurse Practitioner Family; ATTEND Student in an Organized Health Care Education/Training Program
PROC: 4A023N7 Measurement of Cardiac Sampling and Pressure, Left Heart, Percutaneous Approach (ICD-10-PCS; principal; 2024-02-15)
PROC: B2111ZZ Fluoroscopy of Multiple Coronary Arteries using Low Osmolar Contrast (ICD-10-PCS; 2024-02-15)
DX: I25.118 Atherosclerotic heart disease of native coronary artery with other forms of angina pectoris (principal); I11.0 Hypertensive heart disease with heart failure; I48.92 Unspecified atrial flutter; R65.10 Systemic inflammatory response syndrome (SIRS) of non-infectious origin without acute organ dysfunction; I50.42 Chronic combined systolic (congestive) and diastolic (congestive) heart failure; I48.0 Paroxysmal atrial fibrillation; I25.2 Old myocardial infarction; E11.9 Type 2 diabetes mellitus without complications; I45.10 Unspecified right bundle-branch block; Z20.822 Contact with and (suspected) exposure to COVID-19; E78.5 Hyperlipidemia, unspecified; F17.200 Nicotine dependence, unspecified, uncomplicated; I25.5 Ischemic cardiomyopathy; E88.810 Metabolic syndrome; E66.01 Morbid (severe) obesity due to excess calories; F19.10 Other psychoactive substance abuse, uncomplicated; K21.9 Gastro-esophageal reflux disease without esophagitis; Z90.49 Acquired absence of other specified parts of digestive tract; Z79.84 Long term (current) use of oral hypoglycemic drugs; Z79.4 Long term (current) use of insulin; Z88.5 Allergy status to narcotic agent; Z91.199 Patient's noncompliance with other medical treatment and regimen due to unspecified reason; Z95.5 Presence of coronary angioplasty implant and graft; Z82.49 Family history of ischemic heart disease and other diseases of the circulatory system; Z83.3 Family history of diabetes mellitus; Z90.721 Acquired absence of ovaries, unilateral; Z91.119 Patient's noncompliance with dietary regimen due to unspecified reason; Z68.36 Body mass index [BMI] 36.0-36.9, adult
CPT/HCPCS: 36415; 71045; 80053; 80307; 81001; 82962; 83735; 83880; 84443; 84484; 85025; 85610; 85730; 87081; 87086; 87426; 87804; 93005; 96374; 96375; 97116; 97163; 97530; 99152; G0378; J1815; J2003; J2250; J2405; Q9967

== ENCOUNTER 2024-03-04 06:52 | Inpatient (IN) | payer MEDICAID, OTHER ==
[~2024-03-04] VITALS: Ht 172.7 cm; Wt 91.7 kg
[~2024-03-04 06:52] MED LIST changes: -ASPI-628 PO; +ASPI1TAB19 PO
--- NOTE | 2024-03-04 07:09 | ED.PDOC ---
SOB-HPI HPI Comments 58 year old female DAVID presents to the ED with chief complaint of SOB. Patient reports that she has been experiencing SOB with associated chest pressure and dizziness since last night. Patient relays that her SOB is worse when laying flat. EMS state patient's BP was 143/99 and O2 saturation stayed around 97%. Patient denies any chest pain, headache, N/V, cough, or fever. Chief Complaint: Shortness of Breath Time Seen by MD: 07:06 Primary Care Provider: NONE Reviewed notes: Nurses Notes, Hand Coper Notes, Medications, Allergies Information Source: Patient, Emergency Med Personnel Mode of Arrival: EMS Severity: Moderate Timing: Hours Duration: Since onset Context: At Rest PE Risk Factors: None History of: CHF Prehospital treatment: None Modifying Factors: Laying flat Quality: Pressure Radiation: No Radiation Location: Substernal Past Medical History PAST MEDICAL HISTORY: CHF, DM, HTN, LA Surgical History: PTCA FURRIER APPRENTICE History: No Pertinent FURRIER APPRENTICE History Family History Family History: Reviewed,noncontributory to illness Social History Smoker: Quit Less Than 1 Year Alcohol: Denies ETOH Use Drugs: Denies Drug Use Lives In: Home Constitutional: denies: chills, diaphoresis, fatigue, fever, malaise, sweats, weakness, others EENTM: denies: blurred vision, double vision, ear bleeding, ear discharge, ear drainage, ear pain, ear ringing, eye pain, eye redness, hearing loss, mouth pain, mouth swelling, nasal discharge, nose bleeding, nose congestion, nose pain, photophobia, tearing, throat pain, throat swelling, voice changes, others Respiratory: reports: shortness of breath; denies: cough, hemoptysis, orthopnea, SOB at rest, SOB with excertion, stridor, wheezing, others Cardiovascular: reports: others (Chest pressure); denies: chest pain, dizzy spells, diaphoresis, Dyspnea on exertion, edema, irregular heart beat, left arm pain, lightheadedness, palpitations, PND, syncope Gastrointestinal: denies: abdomen distended, abdominal pain, blood streaked bowels, constipated, diarrhea, dysphagia, difficulty swallowing, hematemesis, m jahaira, nausea, poor appetite, poor fluid intake, rectal bleeding, rectal pain, vomiting, others Genitourinary: denies: abnormal vagina bleeding, burning, dyspareunia, dysuria, flank pain, frequency, hematuria, incontinence, pain, , vagina discharge, urgency, others Neurological: reports: dizziness; denies: fainting, headache, left sided numbness, left sided weakness, numbness, paresthesia, pre-existing deficit, right sided numbness, right sided weakness, seizure, speech problems, tingling, tremors, weakness, others Musculoskeletal: denies: back pain, gout, joint pain, joint swelling, muscle pain, muscle stiffness, neck pain, others Integumetry: denies: bruises, change in color, change in hair/nails, dryness, laceration, lesions, lumps, rash, wounds, others Allergic/Immunocompromised: denies: Difficulty Healing, Frequent Infections, Hives, Itching, others Hematologic/Lymphatic: denies: anemia, blood clots, easy bleeding, easy bruising, swollen glands, others Endocrine: denies: excessive hunger, excessive sweating, excessive thirst, excessive urination, flushing, intolerance to cold, intolerance to heat, unexplained weight gain, unexplained weight loss, others Psychiatric: denies: anxiety, bipolar disorder, depression, hopeless, panic disorder, schizophrenia, sleepless, suicidal, others All Other Systems: Reviewed and Negative Physical Exam General Appearance: Moderate Distress, Obese HEENT: Normal ENT Inspection, PERRL/EOMI Neck: Full Range of Motion, Non-Tender, Normal, Normal Inspection Respiratory: Chest Non-Tender, Lungs Clear, No Accessory Muscle Use, No Respiratory Distress, Normal Breath Sounds Cardiovascular: No Edema, No JVD, No Murmur, No Gallop, Normal Peripheral Pulses, Regular Rate/Rhythm Breast Exam: Deferred Gastrointestinal: No Organomegaly, Non Tender, No Pulsatile Mass, Normal Bowel Sounds, Soft Genitalia: Deferred Pelvic: Deferred Rectal: Deferred Extremities: No calf tenderness, Normal capillary refill, Normal inspection, Normal range of motion, Non-tender, No pedal edema Neurologic: Alert, industrial hygenist II-XII nml as Tested, No Motor Deficits, Normal Affect, Normal Mood, No Sensory Deficits Cerebellar Function: Normal Reflexes: Normal Skin: Dry, Normal Color, Warm Peripheral Pulses: 1+ carotid (R), 1+ carotid (L) Lymphatic: No Adenopathy EKG EKG : Pulse Rate (adult): 94 [place]: Normal Cardiac Rhythm: ST Block: RBBB Was a procedure done? Was a procedure done?: No Differential Dx Differential Diagnosis: Anxiety, CHF, Dysrhythmia, Hypertension, Hyponatremia, Myocardial infarction, Pneumonia, Pulmonary Embolism X-Ray, Labs, Meds, VS Vital Signs Date Time Temp Pulse Resp B/P (MAP) Pulse Ox O2 Delivery O2 Flow Rate FiO2 03/04/24 11:00 97.8 80 18 113/85 (94) 96 97.8 03/04/24 08:44 98.0 80 17 123/87 (99) 99 98.0 03/04/24 08:44 80 17 99 Room Air* 0 21 03/04/24 07:57 88 03/04/24 07:21 94 03/04/24 06:55 94 03/04/24 06:55 98.2 102 20 160/104 (122) 98 Lab Test 03/04/24 10:41 03/04/24 09:25 03/04/24 09:00 03/04/24 07:27 Range/Units Troponin I High Sensitivity 38 *H 42 *H 44 *H </=34 ng/L Urine Color Light-yellow Yellow Urine Clarity Clear Clear Urine pH 5.0 5.0-9.0 Urine Specific [place] 1.036 H 1.001-1.035 Urine Protein Negative Negative Urine Ketones Negative Negative Urine Blood 1+ H Negative /uL Urine Nitrite Negative Negative Urine Bilirubin Negative Negative Urine Urobilinogen Normal Negative mg/dL Urine Leukocyte Esterase Negative Negative /uL Urine RBC 2 0 - 4 /hpf Urine WBC 2 0 - 5 /hpf Urine Squamous Epithelial Cells Few <5 /hpf Urine Bacteria None seen None Seen /hpf Urine Glucose 4+ H Normal mg/dL White Blood Count 5.6 4.4-10.8 10^3/uL Red Blood Count 4.95 4.0-5.20 10^6/uL Hemoglobin 14.1 12.2-16.2 g/dL Hematocrit 42.9 36.0-46.0 % Mean Corpuscular Volume 86.6 80.0-100.0 fL Mean Corpuscular Hemoglobin 28.5 28.0-32.0 pg Mean Corpuscular Hemoglobin Concent 33.0 32.0-36.0 g/dL Red Cell Distribution Width 16.3 H 11.8-14.3 % Platelet Count 286 140-450 10^3/uL Mean Platelet Volume 8.1 6.9-10.8 fL Neutrophils (%) (Auto) 46.5 37.0-80.0 % Lymphocytes (%) (Auto) 43.8 10.0-50.0 % Monocytes (%) (Auto) 5.6 0.0-12.0 % Eosinophils (%) (Auto) 2.8 0.0-7.0 % Basophils (%) (Auto) 1.3 0.0-2.0 % Neutrophils # (Auto) 2.6 1.6-8.6 10 ^3/uL Lymphocytes # (Auto) 2.5 0.4-5.4 10 ^3/uL Monocytes # (Auto) 0.3 0-1.3 10 ^3/uL Eosinophils # (Auto) 0.2 0-0.8 10 ^3/uL Basophils # (Auto) 0.1 0-0.2 10 ^3/uL Nucleated Red Blood Cells 0.0 % Prothrombin Time 11.2 9.3-11.8 sec Prothrombin Time INR 1.06 0.9-1.15 Activated Partial Thromboplast Time 27.7 24.5-34.5 SEC D-Dimer, Quantitative 0.61 H 0.0-0.49 mg/L FEU Sodium Level 142 136-145 mmol/L Potassium Level 4.2 3.5-5.1 mmol/L Chloride Level 109 H 98-107 mmol/L Carbon Dioxide Level 25 20-31 mmol/L Anion Gap 8 5-15 Blood Urea Nitrogen 22 9-23 mg/dL Creatinine 1.16 H 0.550-1.02 mg/dL Glomerular Filtration Rate Calc 55 >90 mL/min BUN/Creatinine Ratio 19.0 10.0-20.0 Serum Glucose 159 H 74-106 mg/dL Calcium Level 10.6 H 8.7-10.4 mg/dL Magnesium Level 1.8 1.6-2.6 mg/dL Total Bilirubin 1.1 H 0.2-1.0 mg/dL Aspartate Amino Transferase (AST) 21 13-40 U/L Alanine Aminotransferase (ALT) 22 7-40 U/L Alkaline Phosphatase 118 H 46-116 U/L Total Protein 6.7 5.7-8.2 g/dL Albumin 3.9 3.2-4.8 g/dL Thyroid Stimulating Hormone (TSH) 8.62 H 0.55-4.78 uIU/mL Current Medications Medications (Trade) Dose Ordered Sig/Sonia Route Start Time Stop Time Status Last Admin Aspirin 162 mg ONCE ONCE PO 03/04/24 07:15 03/04/24 07:16 DC 03/04/24 08:43 Chest XR: FINDINGS: Lines and Tubes: None Lungs: Mild congestion Pleura: No effusion. No pneumothorax. Cardiomediastinal contours: Unremarkable Bones: Unremarkable IMPRESSION: Viral pneumonitis versus mild congestion. X-Ray, Labs, Meds, VS Comment Course in the emergency department eventful patient came in with shortness of breath and chest pressure since last night respiratory rate is 20 her heart rate is 2 her blood pressure is 160/104 patient mild multiple issues CAD CHF hypertension diabetes insulin dependent three weeks ago she had an LA chest high cholesterol and had two stents The chest x-ray shows viral pneumonitis EKG shows normal sinus rhythm at 94 with a right bundle-branch block CMP normal CBC negative Urine shows 1+ blood 4+ glucose INR 1.06 D-dimer elevated at 0.61 Troponin slightly elevated at 44 42 and 38 TSH elevated at 8.6 to Magnesium 1.8 Blood sugar 159 GFR at 55 Patient will be admitted for further care high-risk patient Images Reviewed?: Images reviewed and evaluated by me Time of 1ST Reevaluation: 08:06 Reevaluation 1ST: Unchanged Time of 2ND Reevaluation: 11:38 Reevaluation 2ND: Unchanged Patient Education/Counseling: Diagnosis, Treatment Family Education/Counseling: No Family Present Additional Information - I reviewed the following notes from patient's past medical encounters: 02/15/24 for Elevated Troponin - The following tests were ordered, and results were reviewed by me: Chest XR, EKG, Troponin, UA, TSH, D-Dimer, PTPTT, Magnesium, CBC, CMP - Additional information was gathered from interviewing the following indepen dent Historian: EMT - I reviewed and agreed with the following test results read by other provider: Chest XR - I discussed treatments and results with medical personnel. Departure 1 Departure Time of Disposition: 11:40 Impression: Primary Impression: Chest pain Additional Impressions: Dyspnea and respiratory abnormalities Elevated d-dimer CAD S/P percutaneous coronary angioplasty Recent myocardial infarction Hypothyroidism Disposition: ADMITTED INPATIENT Admit to: [facility] Condition: Serious Critical Care Note Critical Care Time?: No Stability Stability form required: Yes Unstable for transfer: Telemetry monitoring (Telemetry monitoring required), Requires medication (Requires Med for stabilization) Heart Score Heart Score: Heart Score Response (Comments) Value History Slightly Suspicious 0 EKG Normal 0 Age 45-64 1 Risk Factors >3 or Hx ASHD 2 Troponin Normal limit 0 Total 3 I personally scribed for ROJELIO WALDEN MD ([email or web address]) on 03/04/24 at 07:09. Electronically submitted by Zeke Morris ([email or web address]). I personally scribed for ROJELIO WALDEN MD ([email or web address]) on 03/04/24 at 08:56. Electronically submitted by Zeke Morris ([email or web address]). I personally scribed for ROJELIO WALDEN MD ([email or web address]) on 03/04/24 at 08:58. Electronically submitted by Zeke Morris ([email or web address]). ROJELIO WALDEN MD Mar 04, 2024 07:09
[2024-03-04 08:18] LABS: Basophils # (auto) 0.1 10 ^3/uL (0-0.2); Basophils % (auto) 1.3 % (0.0-2.0); Eosinophils # (auto) 0.2 10 ^3/uL (0-0.8); Eosinophils % (auto) 2.8 % (0.0-7.0); Hematocrit 42.9 % (36.0-46.0); Hemoglobin 14.1 g/dL (12.2-16.2); Lymphocytes # (auto) 2.5 10 ^3/uL (0.4-5.4); Lymphocytes % (auto) 43.8 % (10.0-50.0); Mean Corpuscular Hemoglobin 28.5 pg (28.0-32.0); Mean Corpuscular Volume 86.6 fL (80.0-100.0); Monocytes # (auto) 0.3 10 ^3/uL (0-1.3); Monocytes % (auto) 5.6 % (0.0-12.0); Neutrophils # (auto) 2.6 10 ^3/uL (1.6-8.6); Neutrophils % (auto) 46.5 % (37.0-80.0); Platelet Count (auto) 286 10^3/uL (140-450); Red Blood Cells 4.95 10^6/uL (4.0-5.20); Red Cell Distribution Width 16.3 % (11.8-14.3); White Blood Cell 5.6 10^3/uL (4.4-10.8)
[2024-03-04] MEDS: SODIUM CHLORIDE 0.9% 1,000 ML IV ONE (08:23)
--- NOTE | 2024-03-04 08:34 | DVH ---
CHEST RADIOGRAPH Indication: cp Technique: Single frontal view of the chest was obtained COMPARISON: XY CHEST XRAY 1 VIEW on DOS: 02/15/24, XY CHEST PORTABLE on DOS: 01/29/24, XY CHEST PORTAB LE on DOS: 01/20/24, XY CHEST PORTABLE on DOS: 01/18/24 FINDINGS: Lines and Tubes: None Lungs: Mild congestion Pleura: No effusion. No pneumothorax. Cardiomediastinal contours: Unremarkable Bones: Unremarkable IMPRESSION: Viral pneumonitis versus mild congestion.
[2024-03-04] MEDS: ASPirin 81 mg TAB PO ONE (08:43)
[2024-03-04 08:44] VITALS: PULSE 80; RESP 17; O2SAT 99
[2024-03-04 08:45] LABS: Alanine Aminotransferase 22 U/L (7-40); Albumin 3.9 g/dL (3.2-4.8); Anion Gap 8 (5-15); Aspartate Aminotransferase 21 U/L (13-40); Bilirubin, Total 1.1 mg/dL (0.2-1.0); Blood Urea Nitrogen 22 mg/dL (9-23); Carbon Dioxide 25 mmol/L (20-31); Magnesium 1.8 mg/dL (1.6-2.6); Potassium 4.2 mmol/L (3.5-5.1); Sodium 142 mmol/L (136-145); Total Protein 6.7 g/dL (5.7-8.2)
[2024-03-04 08:46] LABS: Alkaline Phosphatase 118 U/L (46-116); Calcium 10.6 mg/dL (8.7-10.4); Chloride 109 mmol/L (98-107); Glucose 159 mg/dL (74-106)
[2024-03-04 09:17] LABS: INR 1.06 (0.9-1.15); Partial Thromboplastin Time 27.7 SEC (24.5-34.5); Prothrombin Time 11.2 sec (9.3-11.8)
[2024-03-04 09:18] LABS: Urine Bacteria None Seen /hpf (None Seen)
[2024-03-04 09:27] LABS: Urine Blood 1+ /uL (Negative); Urine Clarity Clear (Clear); Urine Color Light-Yellow (Yellow); Urine Protein, UAD Negative (Negative); Urine Specific Gravity 1.036 (1.001-1.035); Urine Urobilinogen Normal (Negative); Urine WBC 2 /hpf (0 - 5)
[2024-03-04] MEDS: NITROGLYCERIN 0.4 MG SL TAB SL ONE (10:02)
[2024-03-04] MEDS: IOHEXOL 350 MG/ML 100ML IJ ONE (12:23)
[2024-03-04] MEDS ORDERED: ACETAMINOPHEN 325 MG TAB PO PRN (13:45)
[2024-03-04] MEDS ORDERED: NITROGLYCERIN 0.4 MG SL TAB SL PRN (13:45)
[2024-03-04] MEDS ORDERED: MORPHINE SULFATE INJ 2 MG/ml SYRG IV PRN (13:45)
[2024-03-04] MEDS ORDERED: ONDANSETRON HCL 4 MG/2 ML VIAL IV PRN (13:45)
--- NOTE | 2024-03-04 13:50 | DVH ---
CT angiogram INDICATION: Pulmonary embolism Technique: Serial axial images were performed through the chest using 3 mm slice thickness and interv al following the administration of 100 mL of Omnipaque 350 IV contrast. Multiplanar MIP reconstructio n imaging was provided and reviewed at the workstation FINDINGS: No filling defects in the central branches of the pulmonary arteries is normal. The heart size is enlarged. There is no pericardial effusion present. On lung windows there are no infiltrates or effusions. There are small mediastinal lymph nodes under a cm in size Images of the upper abdomen reveal no bony abnormalities. Gallbladder is been removed IMPRESSION: 1. No central pulmonary emboli or signs of acute cardiopulmonary pathology 2. Cardiomegaly. Computed Tomographic Radiation Dosimetry Report: Total CTDI vol = 27 mGy Total DLP = 883 mGy-cm All CT scans at this medical facility are performed using dose modulation techniques as appropriate t o a performed exam including the following: Automated exposure control was utilized; adjustment of the MA and/or KvP according to patient size; a nd use of iterative reconstruction technique.
--- NOTE | 2024-03-04 13:56 | DVHHP2 ---
History of Present Illness History of Present Illness 58 year old female w pmhx HFrEF, T2 DM (A1c >14), HTN, HLD, CA w CAD sp CARROL X 2 (RCA/lad), AFib s/p DCCV jan (on Eliquis), NICM, is BIBA, presents to the ED w c/o SOB and chest pain. Patient reports that she has been experiencing SOB with associated chest pressure and dizziness since last night. Patient relays that her SOB is worse when laying flat. Patient endorses no sick contacts, and she has chest pain that worsens with deep inspiration. Chest pain is nonpositional, 8 to 10/10, sharp, pleuritic,. No nausea and vomiting, fever chills,. She has some dry cough. Chest pain does not radiate anywhere, is localized to anterior chest wall. Upon EMS response and assessment, vital signs are stable. Patient denies any illicit drug abuse, alcohol use. Review of Systems Review of Systems Per HPI Allergies: Coded Allergies: Codeine (Verified Allergy, Intermediate, 07/21/12) Exam Vital Signs Vital Signs Date Time Temp Pulse Resp B/P (MAP) Pulse Ox O2 Delivery O2 Flow Rate FiO2 03/04/24 11:00 97.8 80 18 113/85 (94) 96 97.8 03/04/24 08:44 Room Air* 0 21 Exam GEN: Patient is coughing and appears to be in mild distress HEENT: NC/AT; MMM. CV: RRR, no m/r/g. Severe significant tenderness on palpation anterior chest wall. LUNGS: CTAB, no w/r/c. Bibasilar rales. ABD: Soft, NT/ND, NBS, no masses or organomegaly. EXT: skin Warm, well perfused. no rashes. No clubbing, cyanosis, or edema. NEURO: Ambulating with no limitations. No focal deficits. Labs/Xrays Labs Test 03/04/24 10:41 03/04/24 09:00 03/04/24 07:27 Range/Units Troponin I High Sensitivity 38 *H </=34 ng/L Urine Color Light-yellow Yellow Urine Clarity Clear Clear Urine pH 5.0 5.0-9.0 Urine Specific [place] 1.036 H 1.001-1.035 Urine Protein Negative Negative Urine Ketones Negative Negative Urine Blood 1+ H Negative /uL Urine Nitrite Negative Negative Urine Bilirubin Negative Negative Urine Urobilinogen Normal Negative mg/dL Urine Leukocyte Esterase Negative Negative /uL Urine RBC 2 0 - 4 /hpf Urine WBC 2 0 - 5 /hpf Urine Squamous Epithelial Cells Few <5 /hpf Urine Bacteria None seen None Seen /hpf Urine Glucose 4+ H Normal mg/dL White Blood Count 5.6 4.4-10.8 10^3/uL Red Blood Count 4.95 4.0-5.20 10^6/uL Hemoglobin 14.1 12.2-16.2 g/dL Hematocrit 42.9 36.0-46.0 % Mean Corpuscular Volume 86.6 80.0-100.0 fL Mean Corpuscular Hemoglobin 28.5 28.0-32.0 pg Mean Corpuscular Hemoglobin Concent 33.0 32.0-36.0 g/dL Red Cell Distribution Width 16.3 H 11.8-14.3 % Platelet Count 286 140-450 10^3/uL Mean Platelet Volume 8.1 6.9-10.8 fL Neutrophils (%) (Auto) 46.5 37.0-80.0 % Lymphocytes (%) (Auto) 43.8 10.0-50.0 % Monocytes (%) (Auto) 5.6 0.0-12.0 % Eosinophils (%) (Auto) 2.8 0.0-7.0 % Basophils (%) (Auto) 1.3 0.0-2.0 % Neutrophils # (Auto) 2.6 1.6-8.6 10 ^3/uL Lymphocytes # (Auto) 2.5 0.4-5.4 10 ^3/uL Monocytes # (Auto) 0.3 0-1.3 10 ^3/uL Eosinophils # (Auto) 0.2 0-0.8 10 ^3/uL Basophils # (Auto) 0.1 0-0.2 10 ^3/uL Nucleated Red Blood Cells 0.0 % Prothrombin Time 11.2 9.3-11.8 sec Prothrombin Time INR 1.06 0.9-1.15 Activated Partial Thromboplast Time 27.7 24.5-34.5 SEC D-Dimer, Quantitative 0.61 H 0.0-0.49 mg/L FEU Sodium Level 142 136-145 mmol/L Potassium Level 4.2 3.5-5.1 mmol/L Chloride Level 109 H 98-107 mmol/L Carbon Dioxide Level 25 20-31 mmol/L Anion Gap 8 5-15 Blood Urea Nitrogen 22 9-23 mg/dL Creatinine 1.16 H 0.550-1.02 mg/dL Glomerular Filtration Rate Calc 55 >90 mL/min BUN/Creatinine Ratio 19.0 10.0-20.0 Serum Glucose 159 H 74-106 mg/dL Calcium Level 10.6 H 8.7-10.4 mg/dL Magnesium Level 1.8 1.6-2.6 mg/dL Total Bilirubin 1.1 H 0.2-1.0 mg/dL Aspartate Amino Transferase (AST) 21 13-40 U/L Alanine Aminotransferase (ALT) 22 7-40 U/L Alkaline Phosphatase 118 H 46-116 U/L Total Protein 6.7 5.7-8.2 g/dL Albumin 3.9 3.2-4.8 g/dL Thyroid Stimulating Hormone (TSH) 8.62 H 0.55-4.78 uIU/mL Assessment/Plan Assessment/Plan # Intractable chest pain , rule out CA- consult cardiology. Given aspirin 162 load, # Pneumonia likely, Gram-negative Gram-positive atypicals possible. - Rocephin azithromycin # pericarditis possible - started indomethacin, consult Cardiology, holding off colchicine or steroids Pend Cards review, on tele, defer echo to Cards #costochondritis possible versus viral pleurisy possible - COVID flu pending, start NSAIDs # PE ruled out- CTA read pending # NSTEMI type 2, rule out type 1- see above # history CA, SP CARROL next to (lad/RCA), high-risk patient.; # HFrEF, continue GDM T # T2 DM (A1c >14), - SSI a.c. HS. Hold orals metformin Jardiance # HTN, continue home # HLD, meds continue home meds # AFib s/p DCCV jan (on Eliquis), keep on tele . Full-dose Lovenox to replace Eliquis # NICM, Diet cardiac diabetic GI prophylaxis - Protonix IV q.d. DVT prophylaxis - full-dose Lovenox (to replace Eliquis) Med tele Full code Plan discussed with: Patient My Orders Orders - HEATHER MARINA MD Procedure Category Date Status Time B-Type Natriuretic LAB 03/04/24 In Process Peptide 12:14 Admit ADMIT 03/04/24 Transmitted 13:37 Code Status CODE 03/04/24 Transmitted 13:37 Hydrocodone-Acet PHA 03/04/24 Transmitted 5/325mg Tab ([place] 13:45 Ondansetron Hcl PHA 03/04/24 Transmitted (Zofran) 13:45 Complete Blood Count LAB 03/05/24 Verified 04:00 Comprehensive LAB 03/05/24 Verified Metabolic Panel 04:00 Cardiac DIET 03/04/24 Transmitted Diet-2gna,Lofat,Lochol Dinner Acetaminophen Tablet [facility] 03/04/24 Transmitted (Tylenol Tablet) 13:45 Bedrest With Bathroom [facility] 03/04/24 Transmitted Privileg 13:37 Morphine Sulfate [facility] 03/04/24 Transmitted Injection 13:45 Lovenox 40mg PHA 03/04/24 Transmitted 17:00 Nitroglycerin [facility] 03/04/24 Transmitted Sublingual (Ntrostat 13:45 Morphine Sulfate PHA 03/04/24 Transmitted Injection 13:45 Stat Ekg For Chest [facility] 03/04/24 Transmitted Pain 13:37 Notify Md Of Changes [facility] 03/04/24 Transmitted From Base 13:37 Silverware Washer For [facility] 03/04/24 Transmitted 24 Hours 13:37 Emergency Dysrhythmia [facility] 03/04/24 Transmitted Protocol 13:37 Rhythm Strips Once [facility] 03/04/24 Transmitted Every Shift 13:37 Oxygen By Nasal RT 03/04/24 Transmitted Cannula 13:37 Date of Service: Mar 04, 2024 Billing Provider: HEATHER MARINA MD Common Visit Codes: [id number] INP/OBS CARE (HIGH) HEATHER MARINA MD Mar 04, 2024 13:56
[2024-03-04] MEDS: KETOROLAC TROMETH 30 MG/ML 1ML VIAL IV ONE (14:00)
[2024-03-04] MEDS ORDERED: DEXTROSE (50%) 50ML SYRG IV PRN (14:30)
--- NOTE | 2024-03-04 15:28 | DVHINCON2 ---
Date Seen: Mar 04, 2024 Referring Physician MD Cameron Reason for Consultation Acute chest pain History of Present Illness This is a well-known 58-year-old female who presented to the emergency room via EMS with a chief complaint of shortness of breath. Patient complains of shortness of breath associated with PND, orthopnea, WINTERS, and chest pain described as substernal and worse with inspiration. Upon EMS arrival the patient was found with an oxygen saturation level of 97% on room air and a systolic blood pressure in the 140s mmHg. The patient has significant medical history for cardiovascular disease stating she is compliant with her medical therapy at home including dual antiplatelet therapy given recent stent placement. Serial troponin levels peaked at 44 ng/L. We were not able to locate a 12 lead electrocardiogram. Denies following up with a member services representative in the outpatient setting. Significant past medical history includes coronary artery disease with recent STEMI status post PTCA x2 CARROL to the mid RCA and proximal LAD on 01/18/2024, paroxysmal atrial fibrillation status post DC cardioversion on Eliquis therapy, HFrEF, insulin-dependent diabetes mellitus, hypertension, dyslipidemia, recent history of tobacco use x 25-pack years, and morbid obesity. Past Medical History Past medical history reviewed. No other significant than mentioned above. Past Surgical History STEMI s/p PTCA x 2 CARROL on 01/18/2024 Cholecystectomy Unilateral oophorectomy x5 Family History: Cardiovascular disease G8 MOTHER, Onset:40's - 50 Diabetes mellitus G8 FATHER, Onset:50's - 60 Family History Family history reviewed. Social History Patient has a 25 pack-year history, quit smoking approximately one year ago. Denies any illicit drug use Denies any alcohol use Allergies: Coded Allergies: Codeine (Verified Allergy, Intermediate, 07/21/12) Home Meds Active Scripts Clopidogrel Bisulfate (Plavix) 75 Mg Tab, 1 TAB PO DAILY for 90 Days, #90 TAB 1 Refill Prov:JAYJAY GOODEN MD 02/20/24 Aspirin (Aspirin) 81 Mg Tab, 81 MG PO DAILY for 90 Days, #90 TAB Prov:JAYJAY GOODEN MD 02/20/24 Blood Glucose Monitoring Suppl (D-Care Glucometer Kit/Glu W/Device) 1 Kit Kit, KIT XX ACHS, #1 Prov:JAYJAY GOODEN MD 01/31/24 Insulin Glargine (Lantus Solostar) 100 Unit/Ml Inj, 20 UNIT SC HS for 30 Days, #3 KIT 1 Refill Prov:JAYJAY GOODEN MD 01/31/24 Nicotine (Nicoderm 21MG/24HR) 1 Patch Ph, 1 PATCH TOP DAILY, #28 PATCH 1 Refill Prov:ELIE GUSMAN MD 01/25/24 Metoprolol Succinate (Metoprolol Succinate Er) 25 Mg Tab, 1 TAB PO DAILY, #30 TAB 5 Refills Prov:ELIE GUSMAN MD 01/25/24 Atorvastatin Calcium (Lipitor) 40 Mg Tab, 1 TAB PO QPM, #90 TAB 1 Refill Prov:ELIE GUSMAN MD 01/25/24 Sacubitril-Valsartan (Entresto 24-26 mg) 1 Tab Tab, 1 TAB PO BID, #60 TAB Prov:ELIE GUSMAN MD 01/25/24 Spironolactone (Aldactone) 25 Mg Tab, 1 TAB PO DAILY, #90 TAB 1 Refill Prov:ELIE GUSMAN MD 01/25/24 Empagliflozin (Jardiance) 10 Mg Tab, 10 MG PO DAILY, #90 TAB Prov:ELIE GUSMAN MD 01/25/24 Amiodarone Hcl (Amiodarone Hcl) 200 Mg Tab, 1 TAB PO DAILY, #90 TAB 1 Refill Prov:ELIE GUSMAN MD 01/25/24 Apixaban Base (ELIQUIS) 5 Mg Tab, 5 MG PO BID, #180 TAB Prov:ELIE GUSMAN MD 01/25/24 Reported Medications Diphenhydramine-Acetaminophen (Tylenol Pm Extra Strength 500-25 mg) 1 Tab Tab, 1 TAB PO, TAB 01/20/24 Home Meds Home medications reviewed. Current Medications Current Medications Medications (Trade) Dose Ordered Sig/Sonia Route PRN Reason Start Time Stop Time Status Last Admin Acetaminophen/ Hydrocodone Bitart ([place] 5/325MG Tab) 1 tab Q4HP PRN PO MODERATE PAIN (4-6 PAIN SCALE) 03/04/24 13:45 Ondansetron HCl (Zofran) 4 mg Q4HP PRN IV NAUSEA / VOMITING 03/04/24 13:45 Acetaminophen (Tylenol Tablet) 650 mg Q6HP PRN PO PAIN SCALE 1-3 OR TEMP>100.4 03/04/24 13:45 Morphine Sulfate 2 mg Q4HPRN PRN IV SEVERE PAIN (7-10 PAIN SCALE) 03/04/24 13:45 Enoxaparin Sodium (Lovenox) 40 mg DAILY SC 03/04/24 17:00 03/04/24 14:16 DC Nitroglycerin (Ntrostat Sublingual) 0.4 mg Q5MINP PRN SL FOR CHEST PAIN 03/04/24 13:45 Morphine Sulfate 2 mg Q30M PRN IV FOR CHEST PAIN 03/04/24 13:45 Indomethacin (Indocin Capsule) 25 mg TID PO 03/04/24 22:00 Pantoprazole Sodium (Protonix) 40 mg DAILY IV 03/05/24 10:00 Enoxaparin Sodium (Lovenox) 90 mg Q12HR SC 03/04/24 22:00 Ceftriaxone Sodium 50 ml @ 100 mls/hr DAILY@09 IV 03/05/24 09:00 Azithromycin 250 ml @ 125 mls/hr DAILY IV 03/05/24 10:00 Amiodarone HCl (Cordarone Tablet) 200 mg DAILY PO 03/05/24 10:00 Aspirin (Ecotrin Enteric Coated Tablet) 81 mg DAILY PO 03/05/24 10:00 Clopidogrel Bisulfate (Plavix) 75 mg DAILY PO 03/05/24 10:00 Spironolactone (Aldactone) 25 mg DAILY PO 03/05/24 10:00 Patient Own Medication 1 tab QPM PO 03/04/24 18:00 UNV Patient Own Medication 1 tab DAILY PO 03/05/24 10:00 UNV Diagnostic Test (Pha) (Accu-Chek Comfort Curve T) 1 strip ACHS 03/04/24 17:00 Insulin Human Regular (InsuLIN R) HS SC 03/04/24 22:00 Insulin Human Regular (InsuLIN R) AC SC 03/04/24 17:00 Dextrose 50 ml UD PRN IV Blood Sugar LESS THAN 60 03/04/24 14:30 Metoprolol Succinate (Toprol Xl) 25 mg DAILY PO 03/05/24 10:00 Atorvastatin Calcium (Lipitor) 40 mg HS PO 03/04/24 22:00 Apixaban (Eliquis) 5 mg BID PO 03/04/24 22:00 Empaglifozin (Jardiance) 10 mg DAILY PO 03/05/24 10:00 Sacubitril/ Valsartan (Entresto 24-26 Mg tab) 1 tab BID PO 03/04/24 22:00 Furosemide (Lasix Injection) 40 mg BIDD IV 03/04/24 18:00 Atorvastatin Calcium (Lipitor) 40 mg HS PO 03/04/24 22:00 Metoprolol Succinate (Toprol Xl) 25 mg DAILY PO 03/05/24 10:00 Review of Systems Constitutional: No symptom reported Ears, Nose, & Throat: No symptom reported Eyes: No symptom reported Neurological: No symptoms reported Pulmonary/Respiratory: SOB Cardiovascular: Chest pain Gastrointestinal: No symptom reported Genitourinary: No symptom reported Musculoskeletal: No symptom reported Skin: No symptom reported Psychiatric: No symptom reported Endocrine: No symptom reported Hemotologic/Lymphatic: No symptom reported Vital Signs Vital Signs Date Time Temp Pulse Resp B/P (MAP) Pulse Ox O2 Delivery O2 Flow Rate FiO2 03/04/24 14:00 97.8 88 16 140/104 (116) 97 97.8 03/04/24 08:44 Room Air* 0 21 Physical Exam General Appearance: Cooperative. Well developed. Obese. In no acute distress Head Exam: Normal inspection Neck Exam: Normal inspection. Non-tender. Normal alignment Pulmonary/Respiratory: Chest non-tender. Crackles to bilateral breath sounds Cardiovascular/Chest: Regular rate and rhythm. S1, S2. Sinus rhythm. No murmurs. Positive JVD. Peripheral Pulses: 2+ Radial (R). 2+ Radial (L). 2+ Pedal (R). 2+ Pedal (L) Abdominal Exam: Normal bowel sounds. Soft. Distended Ankle Exam: Negative ankle edema Lower extremities: Negative lower extremity edema Neuro/Mental Status: A&O x4. Coherent Thoughts/Psych: Normal thought pattern. Appropriate mood and affect. Good judgement and insight Appearance: In no acute distress Skin Exam: Normal inspection. Normal color. Warm. Dry Labs/Diagnostic Data Labs Test 03/04/24 10:41 03/04/24 09:00 03/04/24 07:27 Range/Units Troponin I High Sensitivity 38 *H </=34 ng/L Urine Color Light-yellow Yellow Urine Clarity Clear Clear Urine pH 5.0 5.0-9.0 Urine Specific [place] 1.036 H 1.001-1.035 Urine Protein Negative Negative Urine Ketones Negative Negative Urine Blood 1+ H Negative /uL Urine Nitrite Negative Negative Urine Bilirubin Negative Negative Urine Urobilinogen Normal Negative mg/dL Urine Leukocyte Esterase Negative Negative /uL Urine RBC 2 0 - 4 /hpf Urine WBC 2 0 - 5 /hpf Urine Squamous Epithelial Cells Few <5 /hpf Urine Bacteria None seen None Seen /hpf Urine Glucose 4+ H Normal mg/dL White Blood Count 5.6 4.4-10.8 10^3/uL Red Blood Count 4.95 4.0-5.20 10^6/uL Hemoglobin 14.1 12.2-16.2 g/dL Hematocrit 42.9 36.0-46.0 % Mean Corpuscular Volume 86.6 80.0-100.0 fL Mean Corpuscular Hemoglobin 28.5 28.0-32.0 pg Mean Corpuscular Hemoglobin Concent 33.0 32.0-36.0 g/dL Red Cell Distribution Width 16.3 H 11.8-14.3 % Platelet Count 286 140-450 10^3/uL Mean Platelet Volume 8.1 6.9-10.8 fL Neutrophils (%) (Auto) 46.5 37.0-80.0 % Lymphocytes (%) (Auto) 43.8 10.0-50.0 % Monocytes (%) (Auto) 5.6 0.0-12.0 % Eosinophils (%) (Auto) 2.8 0.0-7.0 % Basophils (%) (Auto) 1.3 0.0-2.0 % Neutrophils # (Auto) 2.6 1.6-8.6 10 ^3/uL Lymphocytes # (Auto) 2.5 0.4-5.4 10 ^3/uL Monocytes # (Auto) 0.3 0-1.3 10 ^3/uL Eosinophils # (Auto) 0.2 0-0.8 10 ^3/uL Basophils # (Auto) 0.1 0-0.2 10 ^3/uL Nucleated Red Blood Cells 0.0 % Prothrombin Time 11.2 9.3-11.8 sec Prothrombin Time INR 1.06 0.9-1.15 Activated Partial Thromboplast Time 27.7 24.5-34.5 SEC D-Dimer, Quantitative 0.61 H 0.0-0.49 mg/L FEU Sodium Level 142 136-145 mmol/L Potassium Level 4.2 3.5-5.1 mmol/L Chloride Level 109 H 98-107 mmol/L Carbon Dioxide Level 25 20-31 mmol/L Anion Gap 8 5-15 Blood Urea Nitrogen 22 9-23 mg/dL Creatinine 1.16 H 0.550-1.02 mg/dL Glomerular Filtration Rate Calc 55 >90 mL/min BUN/Creatinine Ratio 19.0 10.0-20.0 Serum Glucose 159 H 74-106 mg/dL Calcium Level 10.6 H 8.7-10.4 mg/dL Magnesium Level 1.8 1.6-2.6 mg/dL Total Bilirubin 1.1 H 0.2-1.0 mg/dL Aspartate Amino Transferase (AST) 21 13-40 U/L Alanine Aminotransferase (ALT) 22 7-40 U/L Alkaline Phosphatase 118 H 46-116 U/L B-Type Natriuretic Peptide 1836.31 0-100 pg/mL Total Protein 6.7 5.7-8.2 g/dL Albumin 3.9 3.2-4.8 g/dL Thyroid Stimulating Hormone (TSH) 8.62 H 0.55-4.78 uIU/mL Assessment Acute on chronic ischemic/decompensated HFrEF with EF of 35%, NYHA class III Coronary artery disease s/p PTCA to the mid-RCA/proximal LAD x 2DES on 01/18/2024, on Plavix therapy Paroxysmal atrial fibrillation/atrial flutter s/p DC cardioversion on 01/21/2024 , on Eliquis/amiodarone therapy Insulin-dependent diabetes mellitus, uncontrolled, HgbA1C >14% Hypertension Dyslipidemia HX of tobacco use Cannabinoid use Obesity Plan/Recommendation (Dr. Gonzales) * Echocardiogram from 01/21/24 revealed: LVEF 35% with global wall hypokinesia * Continue GDMT for CHF and up-titrate as tolerated * Preload and afterload reduction * Strict I&Os. Fluid restriction. Daily weight * Single-antiplatelet therapy, DOAC (Eliquis), and lipid-lowering agent * [id number] Score 5. HAS-BLED Score 1 * Antiarrhythmic agent, amiodarone * Obtain a twelve-lead electrocardiogram * Risk factor modifications, counseled * Mediterranean/low-Na diet. Fluid restriction. Medical compliance The patient presents with an acute exacerbation of CHF and noncardiac chest pain. She will be treated accordingly with GDMT as well as preload and afterload reduction. We will continue conservative management at this time. Thank you for allowing us to participate in this patient's care. Please call if you have any questions or concerns. This medical document was created using an electronic medical record system with voice recognition software and computerized dictation system. Although this document has been carefully reviewed, there might still be some phonetic and typographical errors. Occasional wrong-word or ``sound-alike substitutions may have occurred due to the inherent limitations of voice recognition software. These areas are purely typographical due to imperfections of the software programs and do not reflect any compromise in the patient's medical care. Please read the chart carefully and recognize, using context, where these substitutions have occurred. Plan discussed with: Patient, Other NYHA Physical activity limitations: Class3(Marked) ordinary (activity causes symtoms) Date of Service: Mar 04, 2024 Billing Provider: SUJATHA GONZALES MD Cardiology Common Codes: [id number] INP/OBS CARE (High) LAURA TORRES [facility] Mar 04, 2024 15:28
[2024-03-04 15:30] VITALS: PULSE 87; RESP 18; O2SAT 98
[2024-03-04] MEDS: PANTOPRAZOLE 40 MG/10 ML VIAL INJ IV ONE (16:00)
[2024-03-04] MEDS: cefTRIAXone 1GM/50ML D5W 50 ML IV ONE (16:00)
[2024-03-04] MEDS: MAGNESIUM SULFATE 1GM/100ML 100 ML IV ONE (16:01)
[2024-03-04] MEDS: FUROSEMIDE 20 MG/2 ML VIAL IV ONE (16:01)
[2024-03-04] MEDS: AZITHROMYCIN 500MG/ 250ML 250 ML IV ONE (16:10)
[2024-03-04] MEDS ORDERED: ENOXAPARIN SOD 40 MG/0.4 ML SYRINGE SC SCH (17:00)
[2024-03-04] MEDS: ACCU-CHEK COMFORT CURVE STRIP VI SCH (17:15)
[2024-03-04] MEDS: InsuLIN REG 1unit/0.01ml Soln (100units/ml) SC SCH ×2 (17:16→21:56)
[2024-03-04] MEDS: FUROSEMIDE 40 MG/4 ML VIAL IV SCH (18:00)
[2024-03-04] MEDS ORDERED: PATIENTS OWN MEDICATION (Atorvastatin Calcium (Lipitor) 1 TAB) PO SCH (18:00)
[2024-03-04 18:33] VITALS: BP 127/74; PULSE 98; RESP 18; TEMP 97.5; O2SAT 99
[2024-03-04 20:00] VITALS: PULSE 86
[2024-03-04 20:30] VITALS: PULSE 80; RESP 16; O2SAT 95
[2024-03-04 21:00] VITALS: BP 119/81; PULSE 88; RESP 18; TEMP 97.9; O2SAT 100
[2024-03-04] MEDS ORDERED: ENOXAPARIN SOD 100 MG/1 ML SYRINGE SC SCH (22:00)
[2024-03-04] MEDS ORDERED: ATORVASTATIN 20 MG TAB PO SCH (22:00)
[2024-03-04 22:44] LABS: Cannabinoid Screen, Urine Pos (NEGATIVE); Phencyclidine Screen, Urine Neg (NEGATIVE)
[2024-03-04 22:45] LABS: Amphetamine Screen, Urine Pos (NEGATIVE); Barbiturate Scree,Urine Neg (NEGATIVE); Benzodiazephine Screen, Urine Neg (NEGATIVE); Cocaine Screen, Urine Neg (NEGATIVE); Opiate Scree,Urine Neg (NEGATIVE)
[2024-03-04] MEDS: ATORVASTATIN 20 MG TAB PO SCH (22:47)
[2024-03-04] MEDS: APIXABAN 5 MG TAB PO SCH (22:47)
[2024-03-04] MEDS: INDOMETHACIN 25 MG CAP PO SCH (22:47)
[2024-03-04] MEDS: SACUBITRIL-VALSARTAN 24mg/26mg TAB PO SCH (22:47)
[2024-03-05] VITALS (8 sets, daily range): BP systolic 90–126; BP diastolic 47–85; PULSE 74–89; RESP 16–20; TEMP 97.4–98.1; O2SAT 94–99
[2024-03-05] MEDS: MORPHINE SULFATE INJ 2 MG/ml SYRG IV PRN (01:40)
[2024-03-05 07:09] LABS: Basophils # (auto) 0.1 10 ^3/uL (0-0.2); Basophils % (auto) 1.3 % (0.0-2.0); Eosinophils # (auto) 0.2 10 ^3/uL (0-0.8); Eosinophils % (auto) 2.7 % (0.0-7.0); Hematocrit 43.3 % (36.0-46.0); Hemoglobin 14.6 g/dL (12.2-16.2); Lymphocytes # (auto) 2.4 10 ^3/uL (0.4-5.4); Lymphocytes % (auto) 40.8 % (10.0-50.0); Mean Corpuscular Hemoglobin 28.9 pg (28.0-32.0); Mean Corpuscular Hgb Conc. 33.6 g/dL (32.0-36.0); Monocytes # (auto) 0.3 10 ^3/uL (0-1.3); Monocytes % (auto) 5.5 % (0.0-12.0); Neutrophils % (auto) 49.7 % (37.0-80.0); Nucleated Red Blood Cells % 0.2 %; Platelet Count (auto) 277 10^3/uL (140-450); Red Blood Cells 5.03 10^6/uL (4.0-5.20); Red Cell Distribution Width 15.9 % (11.8-14.3); White Blood Cell 5.9 10^3/uL (4.4-10.8)
[2024-03-05 07:11] LABS: Alanine Aminotransferase 22 U/L (7-40); Anion Gap 9 (5-15); BUN/Creatinine Ratio 22.2 (10.0-20.0); Blood Urea Nitrogen 20 mg/dL (9-23); Calcium 9.9 mg/dL (8.7-10.4); Carbon Dioxide 23 mmol/L (20-31); Chloride 107 mmol/L (98-107); Potassium 3.7 mmol/L (3.5-5.1); Sodium 139 mmol/L (136-145)
[2024-03-05 07:12] LABS: Aspartate Aminotransferase 22 U/L (13-40)
[2024-03-05 07:13] LABS: Total Protein 6.9 g/dL (5.7-8.2)
[2024-03-05 07:14] LABS: Alkaline Phosphatase 119 U/L (46-116); Bilirubin, Total 1.9 mg/dL (0.2-1.0); Glucose 154 mg/dL (74-106)
[2024-03-05] MEDS: CLOPIDOGREL BISULFATE 75 MG TAB PO SCH (09:24)
[2024-03-05] MEDS: METOPROLOL SUCCINATE XL 50 MG TAB PO SCH (09:25)
[2024-03-05] MEDS: SPIRONOLACTONE 25 MG TAB PO SCH (09:25)
[2024-03-05] MEDS: AMIODARONE HCL 200 MG TAB PO SCH (09:25)
[2024-03-05] MEDS: EMPAGLIFLOZIN 10 MG TAB PO SCH (09:25)
[2024-03-05] MEDS: PANTOPRAZOLE 40 MG/10 ML VIAL INJ IV SCH (09:26)
[2024-03-05] MEDS: cefTRIAXone 1GM/50ML D5W 50 ML IV SCH (09:26)
--- NOTE | 2024-03-05 09:32 | DVHPN2 ---
Consult Progress Note Date Seen: Mar 05, 2024 Subjective Review of Systems: CVS:Normal, RESPIRATORY:Normal, NEURO:Normal Other Systems: Denies any further cardiac symptoms. States feeling better Objective vital signs Vital Sign Date Time Temp Pulse Resp B/P (MAP) Pulse Ox O2 Delivery O2 Flow Rate FiO2 03/05/24 09:00 97.4 84 20 126/79 (95) 94 97.4 03/04/24 20:30 Room Air* 0 21 Total Intake and Output 03/04/24 03/04/24 03/05/24 15:00 23:00 07:00 Intake Total 150 ml 250 ml Output Total 500 ml Balance 150 ml -250 ml medications Current Medications Medications Dose Ordered Sig/Sonia Route Start Time Stop Time Status Last Admin Dose Admin Acetaminophen/ Hydrocodone Bitart 1 tab Q4HP PRN PO 03/04/24 13:45 Ondansetron HCl 4 mg Q4HP PRN IV 03/04/24 13:45 Acetaminophen 650 mg Q6HP PRN PO 03/04/24 13:45 Morphine Sulfate 2 mg Q4HPRN PRN IV 03/04/24 13:45 03/05/24 01:40 2 MG Nitroglycerin 0.4 mg Q5MINP PRN SL 03/04/24 13:45 Morphine Sulfate 2 mg Q30M PRN IV 03/04/24 13:45 Indomethacin 25 mg TID PO 03/04/24 22:00 03/05/24 06:14 25 MG Pantoprazole Sodium 40 mg DAILY IV 03/05/24 10:00 Ceftriaxone Sodium 50 ml @ 100 mls/hr DAILY@09 IV 03/05/24 09:00 Azithromycin 250 ml @ 125 mls/hr DAILY IV 03/05/24 10:00 Amiodarone HCl 200 mg DAILY PO 03/05/24 10:00 Clopidogrel Bisulfate 75 mg DAILY PO 03/05/24 10:00 Spironolactone 25 mg DAILY PO 03/05/24 10:00 Patient Own Medication 1 tab QPM PO 03/04/24 18:00 UNV Patient Own Medication 1 tab DAILY PO 03/05/24 10:00 UNV Diagnostic Test (Pha) 1 strip ACHS 03/04/24 17:00 03/05/24 06:14 1 STRIP Insulin Human Regular HS SC 03/04/24 22:00 Insulin Human Regular AC SC 03/04/24 17:00 03/05/24 06:17 2 UNITS Dextrose 50 ml UD PRN IV 03/04/24 14:30 Atorvastatin Calcium 40 mg HS PO 03/04/24 22:00 03/04/24 22:47 40 MG Apixaban 5 mg BID PO 03/04/24 22:00 03/04/24 22:47 5 MG Empaglifozin 10 mg DAILY PO 03/05/24 10:00 Sacubitril/ Valsartan 1 tab BID PO 03/04/24 22:00 03/04/24 22:47 1 TAB Furosemide 40 mg BIDD IV 03/04/24 18:00 03/05/24 06:14 40 MG Metoprolol Succinate 25 mg DAILY PO 03/05/24 10:00 Examination: LUNGS:Normal, CVS:Normal, NEURO:Normal laboratory and microbiology Laboratory Tests 03/05/24 06:08 Test 03/05/24 06:08 Range/Units Serum Glucose 154 H 74-106 mg/dL Problem List/Assessment/Plan Problem List/Assessment/Plan Acute on chronic ischemic/decompensated HFrEF with EF of 35%, NYHA class III Coronary artery disease s/p PTCA to the mid-RCA/proximal LAD x 2DES on 01/18/2024, on Plavix therapy Paroxysmal atrial fibrillation/atrial flutter s/p DC cardioversion on 01/21/2024, on Eliquis/amiodarone therapy Insulin-dependent diabetes mellitus, uncontrolled, HgbA1C >14% Hypertension Dyslipidemia HX of tobacco use Cannabinoid/methamphetamine use Dietary indiscretions Obesity Plan/Recommendation (Dr. Gonzales) * Echocardiogram from 01/21/24 revealed: LVEF 35% with global wall hypokinesia * Continue GDMT for CHF and up-titrate as tolerated * Preload and afterload reduction * Strict I&Os. Fluid restriction. Daily weight * Single-antiplatelet therapy, DOAC (Eliquis), and lipid-lowering agent * [id number] Score 5. HAS-BLED Score 1 * Antiarrhythmic agent, amiodarone * Risk factor modifications, counseled * Mediterranean/low-Na diet. Fluid restriction. Medical compliance * Admits to dietary indiscretions including injudicious sodium and water intake * UDS positive for cannbinoids/methamphetamines. Strongly counseled on cessation * Follow-up with Cardiology within 2-3 weeks post-discharge Cardiac stable. Strongly recommend Lasix QD as outpatient. She was strongly advised to be more aware of dietary indiscretions including sodium and water intake amounts. She was also strongly advised to stop the use of ilicit drugs including methamphetamines. We will sign off at this time. Kindly call if in need to re-consult. Thank you for allowing us to participate in this patient's care. This medical document was created using an electronic medical record system with voice recognition software and computerized dictation system. Although this document has been carefully reviewed, there might still be some phonetic and typographical errors. Occasional wrong-word or ``sound-alike substitutions may have occurred due to the inherent limitations of voice recognition software. These areas are purely typographical due to imperfections of the software programs and do not reflect any compromise in the patient's medical care. Please read the chart carefully and recognize, using context, where these substitutions have occurred. Plan discussed with: Patient, Other Date of Service: Mar 05, 2024 Billing Provider: SUJATHA GONZALES MD Cardiology Common Codes: [id number] HOSP CARE(High [facility] Mar 05, 2024 09:32
[2024-03-05] MEDS ORDERED: ASPirin-EC 81 mg tab PO SCH (10:00)
[2024-03-05] MEDS ORDERED: METOPROLOL SUCCINATE XL 50 MG TAB PO SCH (10:00)
[2024-03-05] MEDS ORDERED: PATIENTS OWN MEDICATION (Metoprolol Succinate (Metoprolol Succinate Er) 1 TAB) PO SCH (10:00)
--- NOTE | 2024-03-05 10:48 | ECG ---
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
[2024-03-05] MEDS: AZITHROMYCIN 500MG/ 250ML 250 ML IV SCH (12:01)
--- NOTE | 2024-03-05 12:53 | MEDREC ---
[facility] ASP Intervention Section I [facility] ASP Intervention: Review courses of therapy (DUE TO PROLONG (QTc > 500) PLEASE CONSIDER SWITCHING AZITHROMYCIN TO DOXYCYLINE) SIENA MOORE PHARMACIST Mar 05, 2024 12:53
--- NOTE | 2024-03-05 13:36 | DVHPN2 ---
Reviewed: Care Plan, H&P, Labs, Medications, Previous Orders, Radiology Changes from previous H/P or p: No Changes Objective Vitals Vital Signs Date Time Temp Pulse Resp B/P (MAP) Pulse Ox O2 Delivery O2 Flow Rate FiO2 03/05/24 12:40 97.8 85 16 90/47 (61) 95 97.8 03/05/24 08:00 Room Air* 0 21 Intake/Output Intake and Output 03/05/24 07:00 Intake Total 400 ml Output Total 500 ml Balance -100 ml Intake Oral 250 ml IV Total 150 ml Output Urine Total 500 ml # Voids 2 Medications Current Medications Medications Dose Ordered Sig/Sonia Route Start Time Stop Time Status Last Admin Dose Admin Acetaminophen/ Hydrocodone Bitart 1 tab Q4HP PRN PO 03/04/24 13:45 Ondansetron HCl 4 mg Q4HP PRN IV 03/04/24 13:45 Acetaminophen 650 mg Q6HP PRN PO 03/04/24 13:45 Morphine Sulfate 2 mg Q4HPRN PRN IV 03/04/24 13:45 03/05/24 09:27 2 MG Nitroglycerin 0.4 mg Q5MINP PRN SL 03/04/24 13:45 Morphine Sulfate 2 mg Q30M PRN IV 03/04/24 13:45 Indomethacin 25 mg TID PO 03/04/24 22:00 03/05/24 06:14 25 MG Pantoprazole Sodium 40 mg DAILY IV 03/05/24 10:00 03/05/24 09:26 40 MG Ceftriaxone Sodium 50 ml @ 100 mls/hr DAILY@09 IV 03/05/24 09:00 03/05/24 09:26 100 MLS/HR Azithromycin 250 ml @ 125 mls/hr DAILY IV 03/05/24 10:00 03/05/24 12:01 125 MLS/HR Amiodarone HCl 200 mg DAILY PO 03/05/24 10:00 03/05/24 09:25 200 MG Clopidogrel Bisulfate 75 mg DAILY PO 03/05/24 10:00 03/05/24 09:24 75 MG Spironolactone 25 mg DAILY PO 03/05/24 10:00 03/05/24 09:25 25 MG Patient Own Medication 1 tab QPM PO 03/04/24 18:00 UNV Patient Own Medication 1 tab DAILY PO 03/05/24 10:00 UNV Diagnostic Test (Pha) 1 strip ACHS 03/04/24 17:00 03/05/24 11:20 1 STRIP Insulin Human Regular HS SC 03/04/24 22:00 Insulin Human Regular AC SC 03/04/24 17:00 03/05/24 11:20 3 UNITS Dextrose 50 ml UD PRN IV 03/04/24 14:30 Atorvastatin Calcium 40 mg HS PO 03/04/24 22:00 03/04/24 22:47 40 MG Apixaban 5 mg BID PO 03/04/24 22:00 03/05/24 09:24 5 MG Empaglifozin 10 mg DAILY PO 03/05/24 10:00 03/05/24 09:25 10 MG Sacubitril/ Valsartan 1 tab BID PO 03/04/24 22:00 03/05/24 09:27 1 TAB Furosemide 40 mg BIDD IV 03/04/24 18:00 03/05/24 06:14 40 MG Metoprolol Succinate 25 mg DAILY PO 03/05/24 10:00 03/05/24 09:25 25 MG Laboratory Results Laboratory Tests 03/05/24 06:08 Chemistry Test 03/05/24 06:08 Albumin 4.0 g/dL (3.2-4.8) Calcium Level 9.9 mg/dL (8.7-10.4) Total Protein 6.9 g/dL (5.7-8.2) Cardiac Markers Test 03/05/24 06:08 B-Type Natriuretic Peptide 864.46 pg/mL (0-100) LFT Test 03/05/24 06:08 Alanine Aminotransferase (ALT) 22 U/L (7-40) Alkaline Phosphatase 119 U/L (46-116) H Aspartate Amino Transferase (AST) 22 U/L (13-40) Total Bilirubin 1.9 mg/dL (0.2-1.0) H Urinalysis Test 03/04/24 09:00 Urine Color Light-yellow (Yellow) Urine Clarity Clear (Clear) Urine pH 5.0 (5.0-9.0) Urine Specific [place] 1.036 (1.001-1.035) Urine Protein Negative (Negative) Urine Ketones Negative (Negative) Urine Blood 1+ /uL (Negative) H Urine Nitrite Negative (Negative) Urine Bilirubin Negative (Negative) Urine Urobilinogen Normal mg/dL (Negative) Urine Leukocyte Esterase Negative /uL (Negative) Urine RBC 2 /hpf (0 - 4) Urine WBC 2 /hpf (0 - 5) Urine Squamous Epithelial Cells Few /hpf (<5) Urine Bacteria None seen /hpf (None Seen) Urine Glucose 4+ mg/dL (Normal) H Labs and/or images reviewed: Labs reviewed by me, Image(s) reviewed by me Assessment/Plan Assessment/Plan Acute on chronic ischemic/decompensated HFrEF with EF of 35%, NYHA class III, cardiology consult by Dr. Cantu appreciated Coronary artery disease s/p PTCA to the mid-RCA/proximal LAD x 2DES on 01/18/2024, on Plavix therapy Paroxysmal atrial fibrillation/atrial flutter s/p DC cardioversion on 01/21/2024, on Eliquis/amiodarone therapy Insulin-dependent diabetes mellitus, uncontrolled, HgbA1C >14% Hypertension Dyslipidemia HX of tobacco use Polysubstance abuse methamphetamine marijuana Dietary noncompliance Obesity Plan discussed with: Patient Date of Service: Mar 05, 2024 Billing Provider: ELIE GUSMAN MD Common Visit Codes: [id number] INP/OBS CARE(HIGH) ELIE GUSMAN MD Mar 05, 2024 13:36
[2024-03-06 01:00] VITALS: BP 112/74; PULSE 84; RESP 18; TEMP 97.6; O2SAT 99
[2024-03-06 05:00] VITALS: BP 102/66; PULSE 62; RESP 18; TEMP 97.4; O2SAT 94
[2024-03-06 07:04] VITALS: PULSE 77
[2024-03-06 09:00] VITALS: BP 123/84; PULSE 60; RESP 14; TEMP 97.7; O2SAT 100
[2024-03-06] MEDS ORDERED: POTA-36 PO (09:18)
[2024-03-06] MEDS ORDERED: FURO1TAB31 PO (09:18)
--- NOTE | 2024-03-06 09:19 | DVHPN2 ---
Reviewed: Care Plan, H&P, Labs, Medications, Previous Orders, Radiology Changes from previous H/P or p: No Changes Objective Vitals Vital Signs Date Time Temp Pulse Resp B/P (MAP) Pulse Ox O2 Delivery O2 Flow Rate FiO2 03/06/24 06:25 116/69 03/06/24 05:00 97.4 62 18 94 97.4 03/05/24 20:19 Room Air* 0 21 Intake/Output Intake and Output 03/06/24 07:00 Intake Total 1435 ml Output Total 0 ml Balance 1435 ml Intake Oral 1135 ml IV Total 300 ml Stool Total 0 ml # Voids 5 Medications Current Medications Medications Dose Ordered Sig/Sonia Route Start Time Stop Time Status Last Admin Dose Admin Acetaminophen/ Hydrocodone Bitart 1 tab Q4HP PRN PO 03/04/24 13:45 Ondansetron HCl 4 mg Q4HP PRN IV 03/04/24 13:45 Acetaminophen 650 mg Q6HP PRN PO 03/04/24 13:45 Morphine Sulfate 2 mg Q4HPRN PRN IV 03/04/24 13:45 03/06/24 04:28 2 MG Nitroglycerin 0.4 mg Q5MINP PRN SL 03/04/24 13:45 Morphine Sulfate 2 mg Q30M PRN IV 03/04/24 13:45 Indomethacin 25 mg TID PO 03/04/24 22:00 03/06/24 06:23 25 MG Pantoprazole Sodium 40 mg DAILY IV 03/05/24 10:00 03/05/24 09:26 40 MG Ceftriaxone Sodium 50 ml @ 100 mls/hr DAILY@09 IV 03/05/24 09:00 03/05/24 09:26 100 MLS/HR Azithromycin 250 ml @ 125 mls/hr DAILY IV 03/05/24 10:00 03/05/24 12:01 125 MLS/HR Amiodarone HCl 200 mg DAILY PO 03/05/24 10:00 03/05/24 09:25 200 MG Clopidogrel Bisulfate 75 mg DAILY PO 03/05/24 10:00 03/05/24 09:24 75 MG Spironolactone 25 mg DAILY PO 03/05/24 10:00 03/05/24 09:25 25 MG Patient Own Medication 1 tab QPM PO 03/04/24 18:00 UNV Patient Own Medication 1 tab DAILY PO 03/05/24 10:00 UNV Diagnostic Test (Pha) 1 strip ACHS 03/04/24 17:00 03/06/24 06:23 1 STRIP Insulin Human Regular HS SC 03/04/24 22:00 03/05/24 23:45 3 UNITS Insulin Human Regular AC SC 03/04/24 17:00 03/06/24 06:31 3 UNITS Dextrose 50 ml UD PRN IV 03/04/24 14:30 Atorvastatin Calcium 40 mg HS PO 03/04/24 22:00 03/05/24 23:43 40 MG Apixaban 5 mg BID PO 03/04/24 22:00 03/05/24 23:43 5 MG Empaglifozin 10 mg DAILY PO 03/05/24 10:00 03/05/24 09:25 10 MG Sacubitril/ Valsartan 1 tab BID PO 03/04/24 22:00 03/05/24 22:43 1 TAB Furosemide 40 mg BIDD IV 03/04/24 18:00 03/06/24 06:25 40 MG Metoprolol Succinate 25 mg DAILY PO 03/05/24 10:00 03/05/24 09:25 25 MG Laboratory Results Laboratory Tests 03/05/24 06:08 Urinalysis Test 03/04/24 09:00 Urine Color Light-yellow (Yellow) Urine Clarity Clear (Clear) Urine pH 5.0 (5.0-9.0) Urine Specific [place] 1.036 (1.001-1.035) Urine Protein Negative (Negative) Urine Ketones Negative (Negative) Urine Blood 1+ /uL (Negative) H Urine Nitrite Negative (Negative) Urine Bilirubin Negative (Negative) Urine Urobilinogen Normal mg/dL (Negative) Urine Leukocyte Esterase Negative /uL (Negative) Urine RBC 2 /hpf (0 - 4) Urine WBC 2 /hpf (0 - 5) Urine Squamous Epithelial Cells Few /hpf (<5) Urine Bacteria None seen /hpf (None Seen) Urine Glucose 4+ mg/dL (Normal) H Labs and/or images reviewed: Labs reviewed by me, Image(s) reviewed by me Assessment/Plan Assessment/Plan Acute on chronic ischemic/decompensated HFrEF with EF of 35%, NYHA class III, cardiology consult by Dr. Cantu appreciated Lasix Coronary artery disease s/p PTCA to the mid-RCA/proximal LAD x 2DES on 01/18/2024, on Plavix therapy Paroxysmal atrial fibrillation/atrial flutter s/p DC cardioversion on 01/21/2024, on Eliquis/amiodarone therapy Insulin-dependent diabetes mellitus, uncontrolled, HgbA1C >14% Hypertension Dyslipidemia HX of tobacco use Polysubstance abuse methamphetamine marijuana, counseled Dietary noncompliance Obesity Plan discussed with: Patient My Orders Orders - ELIE GUSMAN MD Procedure Category Date Status Time * Mattress Stuffer CONS 03/05/24 Transmitted Consult Date of Service: Mar 06, 2024 Billing Provider: ELIE GUSMAN MD Common Visit Codes: [id number] INP/OBS CARE(HIGH) ELIE GUSMAN MD Mar 06, 2024 09:19
--- NOTE | 2024-03-06 09:24 | DVHDS2 ---
Discharge Summary Date of Admission Mar 04, 2024 at 13:37 Date of Discharge: Mar 06, 2024 Admitting Diagnosis Chest pain and shortness of breath Wounds: None Labs/Diagnostic Data: Laboratory Results Test 03/06/24 06:16 03/05/24 06:08 03/04/24 10:41 03/04/24 09:00 POC Glucose 195 mg/dl (70-106) White Blood Count 5.9 10^3/uL (4.4-10.8) Red Blood Count 5.03 10^6/uL (4.0-5.20) Hemoglobin 14.6 g/dL (12.2-16.2) Hematocrit 43.3 % (36.0-46.0) Mean Corpuscular Volume 86.0 fL (80.0-100.0) Mean Corpuscular Hemoglobin 28.9 pg (28.0-32.0) Mean Corpuscular Hemoglobin Concent 33.6 g/dL (32.0-36.0) Red Cell Distribution Width 15.9 % (11.8-14.3) Platelet Count 277 10^3/uL (140-450) Mean Platelet Volume 8.0 fL (6.9-10.8) Neutrophils (%) (Auto) 49.7 % (37.0-80.0) Lymphocytes (%) (Auto) 40.8 % (10.0-50.0) Monocytes (%) (Auto) 5.5 % (0.0-12.0) Eosinophils (%) (Auto) 2.7 % (0.0-7.0) Basophils (%) (Auto) 1.3 % (0.0-2.0) Neutrophils # (Auto) 3.0 10 ^3/uL (1.6-8.6) Lymphocytes # (Auto) 2.4 10 ^3/uL (0.4-5.4) Monocytes # (Auto) 0.3 10 ^3/uL (0-1.3) Eosinophils # (Auto) 0.2 10 ^3/uL (0-0.8) Basophils # (Auto) 0.1 10 ^3/uL (0-0.2) Nucleated Red Blood Cells 0.2 % Sodium Level 139 mmol/L (136-145) Potassium Level 3.7 mmol/L (3.5-5.1) Chloride Level 107 mmol/L (98-107) Carbon Dioxide Level 23 mmol/L (20-31) Anion Gap 9 (5-15) Blood Urea Nitrogen 20 mg/dL (9-23) Creatinine 0.90 mg/dL (0.550-1.02) Glomerular Filtration Rate Calc 74 mL/min (>90) BUN/Creatinine Ratio 22.2 (10.0-20.0) Serum Glucose 154 mg/dL (74-106) Calcium Level 9.9 mg/dL (8.7-10.4) Total Bilirubin 1.9 mg/dL (0.2-1.0) Aspartate Amino Transferase (AST) 22 U/L (13-40) Alanine Aminotransferase (ALT) 22 U/L (7-40) Alkaline Phosphatase 119 U/L (46-116) B-Type Natriuretic Peptide 864.46 pg/mL (0-100) Total Protein 6.9 g/dL (5.7-8.2) Albumin 4.0 g/dL (3.2-4.8) Troponin I High Sensitivity 38 ng/L (</=34) Urine Color Light-yellow (Yellow) Urine Clarity Clear (Clear) Urine pH 5.0 (5.0-9.0) Urine Specific [place] 1.036 (1.001-1.035) Urine Protein Negative (Negative) Urine Ketones Negative (Negative) Urine Blood 1+ /uL (Negative) Urine Nitrite Negative (Negative) Urine Bilirubin Negative (Negative) Urine Urobilinogen Normal mg/dL (Negative) Urine Leukocyte Esterase Negative /uL (Negative) Urine RBC 2 /hpf (0 - 4) Urine WBC 2 /hpf (0 - 5) Urine Squamous Epithelial Cells Few /hpf (<5) Urine Bacteria None seen /hpf (None Seen) Urine Glucose 4+ mg/dL (Normal) Urine Opiates Screen Neg (NEGATIVE) Urine Fentanyl Screen Neg (NEGATIVE) Urine Barbiturates Screen Neg (NEGATIVE) Urine Phencyclidine Screen Neg (NEGATIVE) Urine Amphetamines Screen Pos (NEGATIVE) Urine Benzodiazepines Screen Neg (NEGATIVE) Urine Cocaine Screen Neg (NEGATIVE) Urine Cannabinoids Screen Pos (NEGATIVE) Test 03/04/24 07:27 Prothrombin Time 11.2 sec (9.3-11.8) Prothrombin Time INR 1.06 (0.9-1.15) Activated Partial Thromboplast Time 27.7 SEC (24.5-34.5) D-Dimer, Quantitative 0.61 mg/L FEU (0.0-0.49) Magnesium Level 1.8 mg/dL (1.6-2.6) Thyroid Stimulating Hormone (TSH) 8.62 uIU/mL (0.55-4.78) Other Laboratory Tests 03/05/24 06:08 Brief Hx & Hospital Course: 58-year-old female with multiple medical problems including hypertension hypercholesterolemia chronic current smoking polysubstance abuse including methamphetamine marijuana history of coronary artery disease status post stents to mid RCA and proximal LAD on 01/18/2024 on Plavix history of congestive heart failure came in complaining of increasing shortness of breath and chest pain. Troponin was negative ejection fraction 35 percent patient has had class three NYHA CHF seen by cardiology Dr Mcarthur placed on Lasix continued on home medications patient has a history of AFib continued on Eliquis and amiodarone other comorbid conditions addressed appropriately she was strongly advised to quit smoking and also quit using methamphetamine. Cleared for discharge by Cardiology. Prescription for Lasix and potassium transmitted to the pharmacy. Reviewed all her previous home medications. General condition satisfactory but poor at the time of discharge. Consults/Reason for consult Cardiology Dr. Mcarthur Operations or Procedures None Condition at Discharge: Poor Final Diagnosis/Problems List Acute on chronic ischemic/decompensated HFrEF with EF of 35%, NYHA class III, cardiology consult by Dr. Mcarthur appreciated Lasix Coronary artery disease s/p PTCA to the mid-RCA/proximal LAD x 2DES on 01/18/2024, on Plavix therapy Paroxysmal atrial fibrillation/atrial flutter s/p DC cardioversion on 01/21/2024, on Eliquis/amiodarone therapy Insulin-dependent diabetes mellitus, uncontrolled, HgbA1C >14% Hypertension Dyslipidemia HX of tobacco use Polysubstance abuse methamphetamine marijuana, counseled Dietary noncompliance Obesity Discharge Disposition: Home Discharge Instruct/Medications Diet: Cardiac 2g Na,low cholest Activity: Light activity Follow Up/Referral: Continue all your previous home medications stop using illicit drugs including methamphetamine Medications: Lasix Potassium chloride Transmitted to the pharmacy Reviewed all previous home meds 39 (Time taken for discharge summary 39 minutes) Discharge Statement: "Patient was advised to return to the ER or call 911 if any headaches, dizziness, shortness of breath, chest pain, abdominal pain, bleeding, fevers, or worsening of medical condition. Patient was counseled about treatment plan, medications, possible side effects, patientverbalized understanding. All questions were answered to the best of my ability. This discharge took greater then 30 minutes in planning, reviewing documentation, counseling the patient, and discussing with other team members." ASSESSMENT ASSESSMENT Hospital Course Marginally improvement Assessment Acute on chronic ischemic/decompensated HFrEF with EF of 35%, NYHA class III, cardiology consult by Dr. Mcarthur appreciated Lasix Coronary artery disease s/p PTCA to the mid-RCA/proximal LAD x 2DES on 01/18/2024, on Plavix therapy Paroxysmal atrial fibrillation/atrial flutter s/p DC cardioversion on 01/21/2024, on Eliquis/amiodarone therapy Insulin-dependent diabetes mellitus, uncontrolled, HgbA1C >14% Hypertension Dyslipidemia HX of tobacco use Polysubstance abuse methamphetamine marijuana, counseled Dietary noncompliance Obesity Date of Service: Mar 06, 2024 Billing Provider: ELIE GUSMAN MD Common Visit Codes: [id number] DISCH DAY >30min ELIE GUSMAN MD Mar 06, 2024 09:24
[2024-03-06 13:00] VITALS: BP 105/71; PULSE 76; RESP 14; TEMP 97.8; O2SAT 99
[2024-03-06] MEDS: HYDROcodone-ACET 5/325MG TAB PO PRN (15:59)
== END 2024-03-06 16:04 | disposition home or self-care (01) | DRG 194 ==
LOC: ER 06:52 → EDBD 06:52 → TELE 13:37 → TELE-EAST 13:40
PROVIDERS: ADMIT Student in an Organized Health Care Education/Training Program; ATTEND Family Medicine
DX: I11.0 Hypertensive heart disease with heart failure (principal); I42.8 Other cardiomyopathies; I48.92 Unspecified atrial flutter; Z79.01 Long term (current) use of anticoagulants; I48.0 Paroxysmal atrial fibrillation; I50.23 Acute on chronic systolic (congestive) heart failure; E11.9 Type 2 diabetes mellitus without complications; E66.9 Obesity, unspecified; I25.10 Atherosclerotic heart disease of native coronary artery without angina pectoris; E03.9 Hypothyroidism, unspecified; F15.10 Other stimulant abuse, uncomplicated; E78.00 Pure hypercholesterolemia, unspecified; Z68.30 Body mass index [BMI] 30.0-30.9, adult; I25.2 Old myocardial infarction; Z88.5 Allergy status to narcotic agent; Z87.891 Personal history of nicotine dependence; Z95.5 Presence of coronary angioplasty implant and graft; Z90.721 Acquired absence of ovaries, unilateral; Z90.49 Acquired absence of other specified parts of digestive tract; Z83.3 Family history of diabetes mellitus; Z82.49 Family history of ischemic heart disease and other diseases of the circulatory system; Z91.119 Patient's noncompliance with dietary regimen due to unspecified reason; Z79.4 Long term (current) use of insulin
CPT/HCPCS: 36415; 71045; 71275; 80053; 80307; 81001; 82962; 83735; 83880; 84443; 84484; 85025; 85379; 85610; 85730; 93005; 96365; 96366; 96368; 96372; 96375; G0378; J1815; J2470